=== PATIENT | male | born 1960 | race Caucasian/White ===

== ENCOUNTER 2016-06-10 19:49 | Inpatient (IN) | payer MEDICAID ==
[~2016-06-10] VITALS: Ht 177.8 cm; Wt 86.6 kg
[~2016-06-10 19:49] MED LIST: ADALAT CC90 MG PO; AMBIEN10 MG PO; AMLODIPINE10 M1 PO; APRESOLINE25 MG PO; ASPIRIN81 M1 PO; ATIVAN1 MG PO; BACTRIM DS 800/1 TAB PO; BACTROBAN 2%20 MG/GM NS; CATAPRES0.2 MG PO; CIPRO500 MG PO; CLEOCIN HCL150 MG PO; COLACE100 M1 PO; COREG6.25 MG PO; CYMBALTA20 MG PO; DOCUSATE SODIU PO; ELAVIL25 M1 PO; FOSRENOL500 MG PO; HUMULIN R100 U/M1 SUBQ; HYDROCHLOROTHIAZIDE PO; ISORDIL10 M1 PO; KEFLEX250 MG PO; KEFLEX250 MG/5 M PO; LEVAQUIN250 MG PO; LIORESAL10 MG PO; LIPITOR80 MG PO; LONITEN2.5 MG PO; LOPRESSOR25 MG PO; LOPRESSOR50 MG PO; MICARDIS HCT 251 TAB PO; NEPHRO-VITE VIT1 TAB PO; NEURONTIN300 MG PO; NORCO 325 MG-7.1 TAB PO; NORCO 5/325 MG1 TAB PO; NORVASC10 MG PO; NOVOLIN R100 UNITS/ SUBQ; PEPCID20 MG PO; PHOSLO667 M1 PO; PROCARDIA XL90 MG PO; REGLAN5 MG PO; RENA-VITE RX1 TAB PO; RENAGEL800 MG PO; RENVELA800 MG PO; SILVER SULFADIAZINE TP; TELMISARTAN PO; THORAZINE PO; VITAMIN B COMPL PO; ZOFRAN4 M1 PO; ZOFRAN8 MG PO; [UNRECOGNIZED DRUG - REMARK]; [UNRECOGNIZED DRUG - REMARK]; [UNRECOGNIZED DRUG - REMARK]; [UNRECOGNIZED DRUG - REMARK]; [UNRECOGNIZED DRUG - REMARK]
[2016-06-10 19:58] VITALS: BP 222/118
[2016-06-10] MEDS ORDERED: MORPHINE SULFATE 4 MG/ML SYR IM ONE (20:15)
[2016-06-10] MEDS ORDERED: ONDANSETRON 4 MG ODT PO ONE (20:15)
--- NOTE | 2016-06-10 20:18 | NUR ---
BIB WHEELCHAIR TO ER BED 4
--- NOTE | 2016-06-10 20:18 | NUR ---
56Y M BIB DAUGHTER (JAMIE) AT BEDSIDE C/O STOMACH PAIN AND VOMITNG X 1 DAY. PT HAS ALL TOES ON BOTH LEGS AMPUTATED HER AT [facility]. PT HAS HX OF DM, RENAL DX, HTN, HYPERLIPIDEMIA AND LEFT FOOT ULCER. PT SKIN IS PINK/WARM/DRY; AAOX4 WITH EVEN AND STEADY GAIT; LUNGS CLEAR BL; HR EVEN AND REGULAR; PT DENIES ANY FEVER, CP, SOB, OR COUGH AT THIS TIME; PATIENT STATES PAIN OF 10/10 AT THIS TIME; PATIENT POSITIONED FOR COMFORT; HOB ELEVATED; BEDRAILS UP X2; BED DOWN. ER MD MADE AWARE OF PT STATUS.
--- NOTE | 2016-06-10 20:18 | NUR ---
PT HAS DIALYSIS ON MON, , MONDAY, SHUNT IS ON RIGHT ARM
--- NOTE | 2016-06-10 20:29 | NUR ---
Patient being evaluated by physician DR CHEN at bedside.
[2016-06-10] MEDS ORDERED: cefTRIAXone 1,000 MG in DEXT 5% MINI-BAG PLUS 50 ML IV ONE (22:10)
[2016-06-10] MEDS ORDERED: cefTRIAXone 1,000 MG VIAL ONE (22:32)
[2016-06-10] MEDS ORDERED: SODIUM POLYSTYRENE 15 GM/60 ML UDBTL PO ONE (23:15)
--- NOTE | 2016-06-10 23:15 | NUR ---
LAB CALLED FOR CRITICAL LAB; CR 9.9, TROPONIN 0.117
[2016-06-10] MEDS ORDERED: DOCUSATE SODIUM 100 MG GELCAP PO PRN (23:30)
[2016-06-10] MEDS ORDERED: ACETAMINOPHEN 325 MG TAB PO PRN (23:30)
[2016-06-10] MEDS ORDERED: ONDANSETRON 4 MG/2 ML VIAL IVP PRN (23:30)
--- NOTE | 2016-06-10 23:41 | NUR ---
Patient will be admitted to care of DR PARK . Admited to TELE 115. Will go to room 115. Belongings list completed. Report to SIMONE GALLEGOS .
[2016-06-11] VITALS: BP 190/107
--- NOTE | 2016-06-11 | NUR ---
PATIENT ARRIVED VIA GURNEY FROM ED. PATIENT ABLE TO ASSIST WITH TRANSFER TO BED. PATIENT IS AAO x4 WOLOF SPEAKING. PATIENT IS ON ROOM AIR, NO SOB. PATIENT HAS IV TO LEFT AC 22G PATENT, SALINE LOCKED. PATIENT C/O ABDOMINAL PAIN, TENDER TO THE TOUCH, BOWEL SOUNDS ACTIVE. AND C/O PAIN TO THE LEFT LEG. WILL MEDICATE PER MD ORDER. RIGHT ARM GRAFT FOR HD (M, T, TH, SAT) PATIENT SKIN CHECK, ALL TOES AMPUTATED TO BOTH FEET. DIABETIC FOOT ULCER TO LEFT FOOT. MINIMAL SEROUS DRAINAGE NOTED. CLEANED AND KERLIX APPLIED. ORIENTED PATIENT TO ROOM AND CALL LIGHT, DISCUSSED PLAN OF CARE WITH PATIENT, PATIENT VERBALIZED UNDERSTANDING. SAFETY MEASURES CHECKED, PATIENT FALL RISK, SIGNS POSTED, WRIST BAND APPLIED/ PATIENT ON TELE MONITOR. CALL LIGHT WITHIN REACH. WILL CONTINUE TO MONITOR. VITAL SIGNS BP 190/107 HR 82 O2 SAT 96% TEMP 98.6 RESP 18
[2016-06-11] MEDS: MORPHINE SULFATE 2 MG/ML SYR IVP PRN ×3 (00:17→21:24)
[2016-06-11] MEDS ORDERED: GAUZE TP PRN (00:20)
[2016-06-11] MEDS ORDERED: NACL 0.9% IRR 250 ML BOTTLE IR PRN (00:20)
--- NOTE | 2016-06-11 00:20 | NUR ---
ADMINISTERED MORPHINE PER MD ORDER, WILL CONTINUE TO MONITOR PATIENT
--- NOTE | 2016-06-11 00:39 | NUR ---
RECEIVED CALL FOR CRITICAL LAB OF PHOS 10.8, REPORTED TO MD CLAYTON. NO ORDERS GIVEN. PATIENT'S BP ELEVATED 190/107 HR 82, REQUESTED PRN BP MEDICATION, ORDERS RECEIVED FOR LOPRESSOR 5MG PRN. WILL FOLLOW UP.
[2016-06-11] MEDS ORDERED: METOPROLOL 25 MG TAB PO PRN ×2 (00:45→01:05)
[2016-06-11] MEDS: NACL 0.9% IRR 250 ML BOTTLE IR SCH ×2 (01:27→13:00)
[2016-06-11] MEDS: GAUZE TP SCH ×2 (01:27→13:00)
[2016-06-11] MEDS ORDERED: hydrALAZINE 25 MG TAB PO SCH (02:00)
--- NOTE | 2016-06-11 02:00 | NUR ---
PHARMACY CALLED REGARDING DOSAGE OF LOPRESSOR 5 MG PO. STATED ALMOST IMPOSSIBLE TO DOSE 5MG OUT OF 25 MG TABLET, CALLED MD CLAYTON TO VERIFY DOSE, STATED THE DOSAGE WAS SUPPOSED TO BE IVP. MD GAVE ORDERS TO CONTINUE OUT WHAT PATIENT WAS TAKING AT HOME FOR BLOOD PRESSURE. PER MED REC, PATIENT WAS ON 25MG HYDRALAZINE, MD GAVE ORDERS TO GIVE ONE TIME DOSE OF HYDRALAZINE.AND TO FOLLOW UP WITH PATIENT WITH WHAT MEDICATIONS PATIENT TAKES AT HOME. WILL FOLLOW UP WITH ORDERS.
--- NOTE | 2016-06-11 02:40 | NUR ---
ADMINISTERED ONE TIME DOSE HYDRALAZINE PER MD ORDER, PATIENT TOLERATED WELL. BP 195/108. HR 88, PATIENT HAS BEEN UP TO RESTROOM MULTIPLE TIMES D/T DOSE OF KAYEXALATE. PATIENT STATES PAIN IS OKAY RIGHT NOW, PATIENT ASKED TO TURN OFF LIGHTS. PATIENT NOW SLEEPING, CALL LIGHT WITHIN REACH. WILL CONTINUE TO MONITOR.
[2016-06-11 04:00] VITALS: BP 184/102
--- NOTE | 2016-06-11 04:20 | NUR ---
PATIENT RESTING IN BED, NO SIGN OF DISTRESS, PATIENT'S BP STILL ELEVATED TO 184/102 HR 88. ASYMPTOMATIC, PATIENT DENIES PAIN AT THIS TIME. CALL LIGHT WITHIN REACH. WILL CONTINUE TO MONITOR.
--- NOTE | 2016-06-11 05:21 | NUR ---
PATIENT C/O ITCHING ON LEGS ARMS AND BACK , PAGED MD CLAYTON, RECEIVED ORDERS FOR BENADRYL 25MG PO Q6 PRN. WILL FOLLOW UP WITH ORDERS.
--- NOTE | 2016-06-11 06:00 | NUR ---
ADMINISTERED BENADRYL TO PATIENT, TOLERATED WELL, NO SIGN OF DISTRESS, CALL LIGHT WITHIN REACH. WILL CONTINUE TO MONITOR
--- NOTE | 2016-06-11 07:20 | NUR ---
ENDORSED PATIENT TO DAY SHIFT RN AT BEDSIDE, PATIENT IN STABLE CONDITION.
--- NOTE | 2016-06-11 07:25 | NUR ---
RECEIVED PATIENT REPORT. PATIENT AWAKE, ALERT, ORIENTED AND AMBULATORY. PATIENT ON ROOM AIR. NO SOB NOTED. CLEAN, DRY AND INTACT WOUND DRESSING NOTED ON THE LEFT FOOT. IV LINE NOTED TO THE LEFT FOREARM SALINE LOCKED. PATIENT C/O OF STOMACH PAIN WILL MEDICATE. PATIENT ON TELE MONITORING. BED LOWERED WITH CALL LIGHT WITHIN REACH. WILL CONTINUE TO MONITOR
[2016-06-11 08:00] VITALS: BP 202/91
[2016-06-11] MEDS: hydrALAZINE 25 MG TAB PO SCH ×3 (08:12→17:16)
[2016-06-11] MEDS: amLODIPine 5 MG TAB PO SCH (08:12)
[2016-06-11] MEDS: CALCIUM ACETATE 667 MG TAB PO SCH ×2 (08:23→17:16)
[2016-06-11] MEDS: ISOSORBIDE DINITRATE 10 MG TAB PO SCH (08:23)
--- NOTE | 2016-06-11 08:26 | NUR ---
CALLED [facility] AND SPOKE WITH CARLA BERNAL. INFORMED HER ABOUT THE DIALYSIS ORDER FOR THE PATIENT
--- NOTE | 2016-06-11 08:27 | NUR ---
OBTAINED CONSENT FOR HEMODIALYSIS FROM THE PATIENT. CONSENT FILED IN THE CHART
[2016-06-11] MEDS ORDERED: PANTOPRAZOLE 40 MG TABEC PO SCH (09:00)
[2016-06-11] MEDS ORDERED: METOPROLOL 25 MG TAB PO SCH ×2 (09:00)
--- NOTE | 2016-06-11 09:11 | NUR ---
BLOOD PRESSURE RECHECKED 160/105 HR 83. NO S/S OF DISTRESS NOTED
[2016-06-11] MEDS ORDERED: hePARIN / DEXT 5% PREMIX 250 ML IV SCH (10:05)
[2016-06-11] MEDS ORDERED: HEPARIN PER PHARMACY MC PRN (10:05)
[2016-06-11] MEDS ORDERED: DEXTROSE 50% 50 ML SYR IVP PRN (10:45)
[2016-06-11] MEDS ORDERED: ATORVASTATIN 80 MG TAB PO SCH (11:00)
[2016-06-11] MEDS ORDERED: ASPIRIN 81 MG TAB.CHEW PO SCH (11:00)
[2016-06-11] MEDS ORDERED: METOCLOPRAMIDE 10 MG/2 ML INJ VIAL IVP PRN (11:50)
[2016-06-11] MEDS: BLOOD GLUCOSE MONITORING 1 DEV DEV FS SCH ×3 (11:53→21:19)
[2016-06-11 12:00] VITALS: BP 141/87
[2016-06-11] MEDS: PIPER/TAZO 2.25GM/D5W PREMIX 50 ML IV SCH ×3 (12:00→23:49)
[2016-06-11] MEDS ORDERED: ONDANSETRON 4 MG/2 ML VIAL IVP PRN (12:05)
--- NOTE | 2016-06-11 12:11 | NUR ---
PATIENT HAS BEEN SCREENED AND CATEGORIZED HIGH NUTRITION RISK. PATIENT WILL BE SEEN WITHIN 1-2 DAYS OF ADMISSION. 06/11/16 - 06/12/16 MAINE ROBERTSON; MICHEAL, RD
[2016-06-11] MEDS: INSULIN ASPART SLIDING SCALE 100 UNITS/ML VIAL SUBQ PRN ×2 (12:55→21:20)
[2016-06-11] MEDS: chlorproMAZINE 25 MG TAB PO SCH ×2 (12:57→17:16)
[2016-06-11] MEDS: SEVELAMER 800 MG TAB PO SCH ×2 (12:57→17:16)
[2016-06-11] MEDS: hePARIN / DEXT 5% PREMIX 250 ML IV SCH ×2 (13:05→20:50)
--- NOTE | 2016-06-11 13:10 | NUR ---
HEMODIALYSIS AND HEPARIN DRIP INITIATED
[2016-06-11 16:00] VITALS: BP 147/80
--- NOTE | 2016-06-11 16:20 | NUR ---
HEMODIALYSIS DONE. PATIENT IN STABLE CONDITION
--- NOTE | 2016-06-11 16:20 | NUR ---
2L OUT FROM HEMODIALYSIS
--- NOTE | 2016-06-11 16:48 | NUR ---
06/11/16 RD INITIAL ASSESSMENT COMPLETED PLEASE REFER TO NUTRITION ASSESSMENT UNDER CARE ACTIVITY FOR ESTIMATED NUTRITIONAL NEEDS. RD RECOMMENDATIONS: 1- RECOMMEND CONTINUE CARDIAC, RENAL DIET; SUFFICIENT TO MEET 100% OF ESTIMATED DAILY NUTRITIONAL NEEDS. 2- F/U 2-3 DAYS; HIGH RISK. MAINE ROBERTSON; MICHEAL, RD
[2016-06-11] MEDS: LANTHANUM CARBONATE 500 MG TAB PO SCH (17:25)
--- NOTE | 2016-06-11 17:58 | NUR ---
PATIENT LEFT THE UNIT FOR CT OF THE HEAD
--- NOTE | 2016-06-11 18:52 | NUR ---
SPOKE WITH DR CLAYTON AND INFORMED HER THAT AN ECHO WAS DONE ON 03/26/16. ORDERS THE ECHO TO STILL BE DONE
--- NOTE | 2016-06-11 18:52 | NUR ---
PATIENT SEEN BY DR ASHBY
--- NOTE | 2016-06-11 19:30 | NUR ---
PATIENT REPORT GIVEN AT BEDSIDE. ENDORSED PATIENT IN STABLE CONDITION
--- NOTE | 2016-06-11 19:40 | NUR ---
RECEIVED REPORT FROM DAY NURSEPEPE. PATIENT RESTING IN BED, WATCHING TELEVISION, FAMILY MEMBER AT BEDSIDE. NO RESPIRATORY DISTRESS, SOB, OR DISCOMFORT. INITIAL ASSESSMENT AND BODY CHECK DONE. PATIENT IS AOX4, ALL TOES TO RIGHT FOOT AMPUTATED, WOUND NOTED TO LEFT FOOT, COVERED WITH DRESSING; DRY AND INTACT. IV ACCESS TO LEFT AC 22G AND LEFT HAND 24G, BOTH PORTS PATENT. DISCUSSED PLAN OF CARE, MEDICATION REGIMENT, AND PAIN MANAGEMENT WITH PATIENT. PATIENT VERBALIZED UNDERSTANDING. PLACED PATIENT ON SAFETY PRECAUTIONS. CALL LIGHT LEFT WITHIN REACH, WILL CONTINUE TO MONITOR.
[2016-06-11 20:00] VITALS: BP 160/96
--- NOTE | 2016-06-11 20:08 | NUR ---
DR. CLAYTON PAGED AT THIS TIME, ON-CALL FOR DR. PARK.
--- NOTE | 2016-06-11 20:11 | NUR ---
SPOKE WITH DR. CLAYTON OVER THE PHONE, UPDATED MD OF HEAD CT RESULTS. MD STATED TO RESTART HEPARIN DRIP.
[2016-06-11] MEDS: SACCHAROMYCES 250 MG CAP PO SCH (20:53)
[2016-06-11] MEDS: METOPROLOL 25 MG TAB PO SCH (20:53)
--- NOTE | 2016-06-11 22:04 | NUR ---
PATIENT IN BED, SLEEPING. NO RESPIRATORY DISTRESS, SOB, OR DISCOMFORT. CALL LIGHT LEFT WITHIN REACH, WILL CONTINUE TO MONITOR.
[2016-06-12] VITALS: BP 140/87
--- NOTE | 2016-06-12 00:42 | NUR ---
PATIENT ASLEEP. NO RESPIRATORY DISTRESS, SOB, OR DISCOMFORT. CALL LIGHT LEFT WITHIN REACH, WILL CONTINUE TO MONITOR.
[2016-06-12] MEDS: NACL 0.9% IRR 250 ML BOTTLE IR SCH ×2 (01:00→13:00)
[2016-06-12] MEDS: GAUZE TP SCH ×2 (01:00→13:00)
--- NOTE | 2016-06-12 03:19 | NUR ---
PATIENT SLEEPING. NO RESPIRATORY DISTRESS, SOB, OR DISCOMFORT. CALL LIGHT LEFT WITHIN REACH, WILL CONTINUE TO MONITOR.
[2016-06-12 04:00] VITALS: BP 150/84
[2016-06-12] MEDS: hePARIN / DEXT 5% PREMIX 250 ML IV SCH ×2 (04:41→16:14)
[2016-06-12] MEDS: PIPER/TAZO 2.25GM/D5W PREMIX 50 ML IV SCH ×3 (05:47→18:35)
[2016-06-12] MEDS: PANTOPRAZOLE 40 MG TABEC PO SCH (05:47)
--- NOTE | 2016-06-12 06:03 | NUR ---
PATIENT IN BED, ASLEEP. NO RESPIRATORY DISTRESS, SOB, OR DISCOMFORT. CALL LIGHT LEFT WITHIN REACH, WILL CONTINUE TO MONITOR.
[2016-06-12] MEDS: BLOOD GLUCOSE MONITORING 1 DEV DEV FS SCH ×4 (06:16→20:48)
[2016-06-12] MEDS: INSULIN ASPART SLIDING SCALE 100 UNITS/ML VIAL SUBQ PRN ×3 (06:17→21:07)
--- NOTE | 2016-06-12 07:10 | NUR ---
REPORT GIVEN TO DAY NURSEPEPE. PATIENT RESTING IN BED, STABLE. NO RESPIRATORY DISTRESS, SOB, OR DISCOMFORT. ALL NEEDS ATTENDED TO DURING SHIFT, CALL LIGHT LEFT WITHIN REACH.
--- NOTE | 2016-06-12 07:15 | NUR ---
RECEIVED PATIENT REPORT. PATIENT ASLEEP IN BED BUT EASILY AROUSABLE. NO S/S OF DISTRESS NOTED. PATIENT ON ROOM AIR. HEPARIN DRIP INFUSING AT 11.3ML/HR. WOUND TO THE LEFT LEG WRAPPED WITH CLEAN, DRY AND INTACT DRESSING. PATIENT ON TELE MONITORING. BED LOWERED WITH CALL LIGHT WITHIN REACH. WILL CONTINUE TO MONITOR
[2016-06-12 08:00] VITALS: BP 137/65
[2016-06-12] MEDS: CALCIUM ACETATE 667 MG TAB PO SCH ×2 (08:49→18:35)
[2016-06-12] MEDS: SACCHAROMYCES 250 MG CAP PO SCH ×2 (08:49→20:31)
[2016-06-12] MEDS: chlorproMAZINE 25 MG TAB PO SCH ×3 (08:49→18:35)
[2016-06-12] MEDS: SEVELAMER 800 MG TAB PO SCH ×3 (08:49→18:35)
[2016-06-12] MEDS: ATORVASTATIN 80 MG TAB PO SCH (08:49)
[2016-06-12] MEDS: amLODIPine 5 MG TAB PO SCH (08:50)
[2016-06-12] MEDS: ISOSORBIDE DINITRATE 10 MG TAB PO SCH (08:50)
[2016-06-12] MEDS: METOPROLOL 25 MG TAB PO SCH ×2 (08:51→20:32)
[2016-06-12] MEDS: ASPIRIN 81 MG TAB.CHEW PO SCH (08:51)
[2016-06-12] MEDS: hydrALAZINE 25 MG TAB PO SCH ×3 (08:51→18:34)
[2016-06-12] MEDS: LANTHANUM CARBONATE 500 MG TAB PO SCH ×2 (08:52→18:34)
--- NOTE | 2016-06-12 09:00 | NUR ---
ADMINISTERED DUE MEDS. PATIENT TOLERATED WELL. NO S/S OF DISTRESS NOTED. HEP DRIP STILL ONGOING
--- NOTE | 2016-06-12 10:23 | NUR ---
PATIENT ASLEEP IN BED. NO S/S OF DISTRESS NOTED
[2016-06-12 12:00] VITALS: BP 130/76
--- NOTE | 2016-06-12 12:29 | NUR ---
PTT 52.2. NO CHANGE IN HEPARIN DRIP
[2016-06-12] MEDS: HYDROcodone/APAP 5/325 MG 1 TAB TAB PO PRN (12:46)
--- NOTE | 2016-06-12 15:45 | NUR ---
WOUND DRESSING CHANGE DONE BY DR ASHBY
[2016-06-12 16:00] VITALS: BP 133/72
[2016-06-12] MEDS ORDERED: THERAHONEY GEL 42.5 GM TP SCH (16:00)
--- NOTE | 2016-06-12 16:02 | NUR ---
PAGED DR MARTIN FOR DIALYSIS ORDER. WAITING FOR CALL BACK
--- NOTE | 2016-06-12 17:20 | NUR ---
MADE DR TSAI AWARE THAT NO HEMODIALYSIS HAS BEEN PLACED YET AND DR MARTIN WAS BEEN PAGED ALREADY
--- NOTE | 2016-06-12 17:24 | NUR ---
PER DR VILA, AGUSTO HEPARIN DRIP AND START PATIENT ON 5000 UNITS OF HEPARIN SUBQ BID. DR TSAI INFORMED
--- NOTE | 2016-06-12 19:33 | NUR ---
PATIENT REPORT GIVEN AT BEDSIDE. PATIENT ENDORSED IN STABLE CONDITION
--- NOTE | 2016-06-12 19:45 | NUR ---
RECEIVED PT IN STABLE CONDITION FROM AM NURSE. AWAKE,ALERT AND ORIENTED X4. FAMILY MEMBERS JUST CAME . ON TELE MONITOR. NO ACUTE DISTRESS NOTED. WITH IV ACCESS ON THE LT AC#22. CLEAR AND PATENT. PT HAS DRESSING ON THE LT FOOT. DRY AND INTACT. HAS PREVIOUS AMPUTATION ON RT TOES. ABLE TO AMBULATE TO BATHROOM . BUT INSTRUCTED TO CALL FOR ASSISTANCE. CALL LIGHT PLACED WITHIN EASY REACH. ON CONTACT ISOLATION FOR HS: MRSA . WILL CONTINUE TO MONITOR.
[2016-06-12 20:00] VITALS: BP 146/78
--- NOTE | 2016-06-12 23:34 | NUR ---
PAGED DR. MARTIN TO CLARIFY IF PT NEED DIALYSIS TOMORROW.
[2016-06-13 00:46] VITALS: BP 146/78
[2016-06-13] MEDS: PIPER/TAZO 2.25GM/D5W PREMIX 50 ML IV SCH ×5 (00:46→17:26)
[2016-06-13] MEDS: HYDROcodone/APAP 5/325 MG 1 TAB TAB PO PRN ×2 (00:48→21:32)
[2016-06-13] MEDS: GAUZE TP SCH ×2 (01:00→13:07)
[2016-06-13] MEDS: NACL 0.9% IRR 250 ML BOTTLE IR SCH ×2 (01:00→13:08)
--- NOTE | 2016-06-13 02:59 | NUR ---
C/O ITCHING. BENADRYL PO GIVEN ORDERED.
[2016-06-13 04:30] VITALS: BP 133/78
--- NOTE | 2016-06-13 05:00 | NUR ---
ABLE TO SLEEP WELL DURING THE NIGHT. NO DISTRESS NOTED.
--- NOTE | 2016-06-13 05:56 | NUR ---
DR. MARTIN JUST CALLED AND ORDERED HD TODAY . CALLED [facility] AND TALKED TO CARLA. MADE AWARE THAT THEY HAVE TO CALL DR. MARTIN FOR ORDER.
[2016-06-13] MEDS: PANTOPRAZOLE 40 MG TABEC PO SCH (06:01)
[2016-06-13] MEDS: BLOOD GLUCOSE MONITORING 1 DEV DEV FS SCH ×4 (06:12→21:27)
--- NOTE | 2016-06-13 06:50 | NUR ---
LT AC IV LEAKING. AND LT HAND HL INFILTRATED. BOTH DISCONTINUED. STARTED ANEW IV ACCES LT FA #[id number]. CLEAR AND PATENT.
--- NOTE | 2016-06-13 07:30 | NUR ---
ENDORSED PT IN STABLE CONDITION TO AM NURSE.
--- NOTE | 2016-06-13 07:31 | NUR ---
RECEIVED PT FROM PM NURSE. PT SEEN AT BEDSIDE. NO S/S DISTRESS OR SOB AT THIS TIME. ON ROOM AIR. PT IS AAOX4, BULGARIAN SPEAKING. LEFT FA 22G IV NOTED. RIGHT UPPER ARM AV SHUNT NOTED. NO S/S COMPLICATIONS AT THIS TIME. LEFT FOOT COVERED WITH DRESSING. RIGHT FOOT TOE AMPUTATIONS NOTED. PT AMBULATORY. SAFETY MEASURES CHECKED, CALL LIGHT LEFT AT BEDSIDE. WILL CONTINUE TO MONITOR.
--- NOTE | 2016-06-13 07:40 | NUR ---
RECEIVED CALL FROM LAB FOR CRITICAL CREATININE 10.5 AND PHOSPHORUS 11.7 AT 06/13/[address] HANCOCK OF CRITICAL LAB VALUES AND THAT PT WILL HAVE HD TODAY. MD AWARE. NO CHANGE IN ORDERS AT THIS TIME. WILL CONTINUE TO MONITOR.
[2016-06-13 08:00] VITALS: BP 160/89
--- NOTE | 2016-06-13 08:00 | NUR ---
VITAL SIGNS STABLE AT THIS TIME. PT EATING BREAKFAST TRAY. WILL CONTINUE TO MONITOR.
[2016-06-13] MEDS: LANTHANUM CARBONATE 500 MG TAB PO SCH ×2 (08:48→16:16)
[2016-06-13] MEDS: hydrALAZINE 25 MG TAB PO SCH ×3 (08:49→16:17)
[2016-06-13] MEDS: CALCIUM ACETATE 667 MG TAB PO SCH ×2 (08:49→16:17)
[2016-06-13] MEDS: ISOSORBIDE DINITRATE 10 MG TAB PO SCH (08:49)
[2016-06-13] MEDS: ATORVASTATIN 80 MG TAB PO SCH (08:49)
[2016-06-13] MEDS: SEVELAMER 800 MG TAB PO SCH ×3 (08:49→16:16)
[2016-06-13] MEDS: SACCHAROMYCES 250 MG CAP PO SCH ×2 (08:50→21:30)
[2016-06-13] MEDS: ASPIRIN 81 MG TAB.CHEW PO SCH (08:50)
[2016-06-13] MEDS: chlorproMAZINE 25 MG TAB PO SCH ×3 (08:50→16:16)
--- NOTE | 2016-06-13 08:50 | NUR ---
ADMINISTERED ROUTINE MEDICATIONS WITH EDUCATION. PT VERBALIZED UNDERSTANDING. PT TOLERATED WELL. WILL CONTINUE TO MONITOR.
[2016-06-13] MEDS: METOPROLOL 25 MG TAB PO SCH ×2 (08:51→21:31)
[2016-06-13] MEDS: amLODIPine 5 MG TAB PO SCH (08:52)
[2016-06-13] MEDS: THERAHONEY GEL 42.5 GM TP SCH (08:53)
--- NOTE | 2016-06-13 10:15 | NUR ---
WOUND CARE EVALUATION NOTES: REASON FOR EVALUATION: LEFT FOOT INFECTION COMPLETE SKIN ASSESSMENT DONE ON THIS 56 Y/O MALE PATIENT FROM HOME TO [facility], WITH INITIAL DIAGNOSIS OF DIABETIC FOOT ULCER, ELEVATED TROPONIN AND HYPERKALEMIA. PAST MEDICAL HISTORY INCLUDE DM WITH BILATERAL MID FOOT AMPUTATION, HYPERTENSION, ESRD AND HEPATITIS. ALL ABOVE INFORMATION WAS OBTAINED FROM THE ADMISSION H&P. LABS ARE WBC 7.0, H/H 9.7/30.6, GLUCOSE 120, ALBUMIN 3.8, PT/INR 11.5/1.2 AND PTT 24.8. CURRENT MEDS INCLUDE HEPARIN, ASPIRIN, ZOSYN, INSULIN, NORCO AND MORPHINE. PATIENT IS AWAKE, ALERT AND ORIENTED TO PERSON, PLACE AND TIME. SKIN WARM TO TOUCH WNL, BILATERAL FEET TRANSMETATARSAL AMPUTATION WITH SCARRING, NO EDEMA, PLANTAR AREA OF AMPUTATION WITH HYPERKERATOSIS, NO HAIR GROWTH, MULTIPLE SCARRING OF BLE AND UNABLE TO PALPATE BILATERAL PEDAL PULSES. ABLE TO AMBULATE TO THE RESTROOM CLAIMED. ABLE TO TURN SELF WITHOUT ASSISTANCE. ABLE TO MAKE HIS NEEDS KNOWN. INITIAL PLAN OF CARE AND PRESSURE PREVENTIVE MEASURES DISCUSSED, ABLE TO VERBALIZE UNDERSTANDING. INTEGUMENTARY: LEFT FOOT - DIABETIC FOOT ULCER - WITH HISTORY OF TRANSMETATARSAL AMPUTATION - PW WITH HYPERKERATOSIS RECOMMENDATIONS: -CLEANSE LEFT FOOT WITH NS AND GAUZE, PAT DRY, APPLY THERAHONEY GEL, COVER WITH ADAPTIC, GAUZE, WRAP WITH PANCHO AND ADAPTIC DAILY AND PRN WITH SOILING/DISPLACEMENT -ENCOURAGE PATIENT TO TURN AND REPOSITION SELF Q2H -ASSESS AND MONITOR SKIN CONDITION DURING POSITION CHANGE, PLEASE PAY PARTICULAR ATTENTION TO SACRALCOCCYX, ELBOWS AND HEELS -OFFLOAD BILATERAL HEELS BY PLACING PILLOWS UNDER CALVES AT ALL TIMES, UNLESS OTHERWISE CONTRAINDICATED -PODIATRY CONSULT IN PLACE -KEEP SKIN CLEAN AND DRY AT ALL TIMES. RECOMMENDATIONS DISCUSSED WITH PRIMARY RN AND RESIDENT PHYSICIAN, DR. PHAM. WILL FOLLOW UP PATIENT Q 7 DAYS AND PRN. PLEASE CONTACT [facility] FOR ANY CONCERNS, QUESTIONS AND CHANGES IN WOUND CONDITION.
--- NOTE | 2016-06-13 11:45 | NUR ---
MARKETING SUPPORT SPECIALIST AT BEDSIDE.
[2016-06-13 12:00] VITALS: BP 162/85
--- NOTE | 2016-06-13 12:00 | NUR ---
PER PHARMACY ORDER ENTRY TECHNICIANLOVE, HOLD ANTIBIOTIC, BP MEDS, AND INSULIN UNTIL HD IS DONE.
--- NOTE | 2016-06-13 14:02 | NUR ---
PT C/O ITCHING. BENADRYL ADMINISTERED. PT TOLERATED WELL. WILL CONTINUE TO MONITOR.
--- NOTE | 2016-06-13 14:15 | NUR ---
PT ASKING IF HE IS GOING HOME TODAY. NOTIFIED PATIENT THAT THERE IS NO DISCHARGE ORDER BY THE DOCTOR YET. PT VERBALIZED UNDERSTANDING.
[2016-06-13 16:00] VITALS: BP 168/74
--- NOTE | 2016-06-13 17:00 | NUR ---
NOTIFIED DR. PHAM THAT PT SBP IS RUNNING 180S ALL DAY TODAY. MD AWARE. WILL FOLLOW UP WITH ORDERS.
[2016-06-13] MEDS: INSULIN ASPART SLIDING SCALE 100 UNITS/ML VIAL SUBQ PRN ×2 (17:26→21:28)
--- NOTE | 2016-06-13 17:26 | NUR ---
ROUTINE MEDICATION GIVEN WITH EDUCATION. PT VERBALIZED UNDERSTANDING. WILL CONTINUE TO MONITOR.
[2016-06-13] MEDS ORDERED: ISOSORBIDE DINITRATE 20 MG TAB PO SCH (18:00)
--- NOTE | 2016-06-13 18:23 | NUR ---
ISOSORBIDE GIVEN WITH EDUCATION. PT VERBALIZED UNDERSTANDING. WILL CONTINUE TO MONITOR.
--- NOTE | 2016-06-13 19:18 | NUR ---
PT SEEN AT BEDSIDE. REPORT GIVEN TO EL CANTU.
--- NOTE | 2016-06-13 19:25 | NUR ---
RECEIVED REPORT FROM DAY NURSELASHAWN. PATIENT RESTING IN BED, WATCHING TELEVISION. NO RESPIRATORY DISTRESS, SOB, OR DISCOMFORT. INITIAL ASSESSMENT AND BODY CHECK DONE. PATIENT IS AOX4, IV ACCESS LEFT FOREARM 22G, PATENT. PATIENT HAS DIALYSIS ACCESS TO RIGHT UPPER ARM. ULCER NOTED TO LEFT FOOT, COVERED WITH DRESSING; DRY AND INTACT. RIGHT TOES AMPUTATION NOTED. DISCUSSED PLAN OF CARE, MEDICATION REGIMENT, AND PAIN MANAGEMENT WITH PATIENT. PATIENT VERBALIZED UNDERSTANDING. PLACED PATIENT ON SAFETY PRECAUTIONS. CALL LIGHT LEFT WITHIN REACH, WILL CONTINUE TO MONITOR.
[2016-06-13 20:00] VITALS: BP 147/83
--- NOTE | 2016-06-13 20:00 | NUR ---
SPOKE WITH DR. PHAM, UPDATE MD ON PATIENT STATUS. MD REQUESTING PATIENT TO POSSIBLY HAVE DIALYSIS EARLY 0500 TOMORROW AM IF POSSIBLE.
--- NOTE | 2016-06-13 20:05 | NUR ---
SPOKE WITH NILSON LOCKWOOD. UPDATED PER ATTENDING MD OF REQUEST FOR EARLY DIALYSIS.
--- NOTE | 2016-06-13 20:09 | NUR ---
SPOKE WITH DR. MARTIN OVER THE PHONE. UPDATED MD OF ATTENDING MD REQUEST FOR PATIENT AM DIALYSIS.
--- NOTE | 2016-06-13 22:02 | NUR ---
PATIENT IN BED, WATCHING TELEVISION. PATIENT COMPLAINING PREVIOUS MEDICATION ADMINISTRATION GAVE LITTLE TO NO RELIEF. WILL FOLLOW MD ORDERS AND F/U. NO RESPIRATORY DISTRESS, SOB, OR DISCOMFORT. CALL LIGHT LEFT WITHIN REACH, WILL CONTINUE TO MONITOR.
[2016-06-13] MEDS: MORPHINE SULFATE 2 MG/ML SYR IVP PRN (23:30)
[2016-06-14] VITALS: BP 116/65
[2016-06-14] MEDS: PIPER/TAZO 2.25GM/D5W PREMIX 50 ML IV SCH ×3 (00:16→12:49)
--- NOTE | 2016-06-14 00:52 | NUR ---
PATIENT IN BED, SLEEPING. NO RESPIRATORY DISTRESS, SOB, OR DISCOMFORT. CALL LIGHT LEFT WITHIN REACH, WILL CONTINUE TO MONITOR.
[2016-06-14] MEDS: GAUZE TP SCH ×2 (01:00→13:00)
[2016-06-14] MEDS: NACL 0.9% IRR 250 ML BOTTLE IR SCH ×2 (01:00→13:00)
--- NOTE | 2016-06-14 03:15 | NUR ---
PATIENT ASLEEP. NO RESPIRATORY DISTRESS, SOB, OR DISCOMFORT. CALL LIGHT LEFT WITHIN REACH, WILL CONTINUE TO MONITOR.
[2016-06-14 04:00] VITALS: BP 116/70
--- NOTE | 2016-06-14 06:10 | NUR ---
PATIENT SLEEPING. NO RESPIRATORY DISTRESS, SOB, OR DISCOMFORT. CALL LIGHT LEFT WITHIN REACH, WILL CONTINUE TO MONITOR.
[2016-06-14] MEDS: PANTOPRAZOLE 40 MG TABEC PO SCH (06:28)
[2016-06-14] MEDS: BLOOD GLUCOSE MONITORING 1 DEV DEV FS SCH ×3 (06:29→17:15)
--- NOTE | 2016-06-14 07:10 | NUR ---
REPORT GIVEN TO DAY NURSEVAISHALI. PATIENT RESTING IN BED, STABLE. NO RESPIRATORY DISTRESS, SOB, OR DISCOMFORT. ALL NEEDS ATTENDED TO DURING SHIFT, CALL LIGHT LEFT WITHIN REACH.
--- NOTE | 2016-06-14 07:11 | NUR ---
RECEIVED REPORT FROM NIGHT NURSE MIGUELINA GALLEGOS, PATIENT APPEARED TO BE ASLEEP, EASILY AWAKE TO NAME CALLED. AAOX4 KINYARWANDA SPEAKING. NO SIGN OF DISTRESS NOTED. NO SOB OR SIGN OF DISTRESS NOTED AT THIS TIME. INITIAL ASSESSMENT DONE. PATIENT STATED HAVING TOLERABLE BACK PAIN AND WILL REQUEST PAIN MEDICATION WHEN NEEDED. VSS WITH NO FEVER. PATIENT HAS IV 22G TO LEFT FOREARM INTACT AND FLUSHED WELL. PATIENT HAS LEFT WOUND WITH DRY AND INTACT DRESSING TO LEFT FOOT, ALL RIGHT FOOT TOES AMBULATED NOTED. PAIN MANAGEMENT AND MEDICATION REGIMENTS DISCUSSED, PATIENT VERBALIZED UNDERSTANDING. CALL LIGHT WITHIN REACH. WILL CONTINUE TO MONITOR.
[2016-06-14 08:00] VITALS: BP 148/77
[2016-06-14] MEDS ORDERED: CALCIUM ACETATE 667 MG TAB PO SCH (08:00)
[2016-06-14] MEDS: HYDROcodone/APAP 5/325 MG 1 TAB TAB PO PRN (08:29)
[2016-06-14] MEDS: ISOSORBIDE DINITRATE 20 MG TAB PO SCH ×3 (08:29→17:23)
[2016-06-14] MEDS: SEVELAMER 800 MG TAB PO SCH ×3 (08:29→17:23)
[2016-06-14] MEDS: LANTHANUM CARBONATE 500 MG TAB PO SCH ×2 (08:29→17:23)
[2016-06-14] MEDS: METOPROLOL 25 MG TAB PO SCH (08:29)
[2016-06-14] MEDS: hydrALAZINE 25 MG TAB PO SCH ×3 (08:30→17:22)
[2016-06-14] MEDS: amLODIPine 5 MG TAB PO SCH (08:30)
[2016-06-14] MEDS: ASPIRIN 81 MG TAB.CHEW PO SCH (08:30)
[2016-06-14] MEDS: ATORVASTATIN 80 MG TAB PO SCH (08:30)
[2016-06-14] MEDS: SACCHAROMYCES 250 MG CAP PO SCH (08:30)
[2016-06-14] MEDS: chlorproMAZINE 25 MG TAB PO SCH ×3 (08:30→17:22)
--- NOTE | 2016-06-14 08:30 | NUR ---
MORNING DUE MEDICATIONS GIVEN WITH NORCO FOR BACK PRESSURE PAIN 10/01. PATIENT TOLERATED WELL. NO SIGN OF DISTRESS NOTED AT THIS TIME. CALL LIGHT WITHIN REACH. WILL CONTINUE TO MONITOR.
[2016-06-14] MEDS: CALCIUM ACETATE 667 MG TAB PO SCH ×2 (08:47→17:22)
[2016-06-14] MEDS: THERAHONEY GEL 42.5 GM TP SCH (09:00)
[2016-06-14] MEDS ORDERED: ISOSORBIDE DINITRATE 10 MG TAB PO SCH (09:00)
--- NOTE | 2016-06-14 11:50 | NUR ---
HD STARTED. PATIENT APPEARED TO BE CALM. NO SIGN OF DISTRESS NOTED AT THIS TIME. NO COMPLAINING OF DISCOMFORT. ALL NEEDS ARE MET. CALL LIGHT WITHIN REACH. WILL CONTINUE TO MONITOR.
[2016-06-14 12:00] VITALS: BP 138/68
--- NOTE | 2016-06-14 12:31 | NUR ---
06/14/16 RD FOLLOW UP COMPLETED PLEASE REFER TO NUTRITION PROGRESS NOTE UNDER CARE ACTIVITY FOR ESTIMATED NUTRITION NEEDS. RD RECOMMENDATIONS: 1. RECOMMEND DIET CHANGE TO CCHO 60 GM, RENAL PT WITH ELEVATED GLUCOSE LEVELS, PMH DM 2. ENCOURAGE INCREASED PO INTAKES 3. RD PROVIDED PT WITH DM AND RENAL DIET EDUCATIONAL HANDOUTS 3. RD WILL F/U 3-5 DAYS; MODERATE RISK. KENJI HOUSE RD
[2016-06-14] MEDS: MORPHINE SULFATE 2 MG/ML SYR IVP PRN (12:50)
--- NOTE | 2016-06-14 13:18 | NUR ---
DRESSING STILL CLEAN DRY AND INTACT WITH NO DRAINAGE NOTED. PATIENT REMAIN CALM AND RESTING WELL IN BED. HD STILL ON GOING. NO SIGN OF DISTRESS NOTED. WILL CONTINUE TO MONITOR.
[2016-06-14] MEDS ORDERED: LACTULOSE 20 GM/30 ML UDC PO SCH (14:03)
--- NOTE | 2016-06-14 14:09 | NUR ---
INSULIN NOT GIVEN DUE TO PATIENT NOT EATING AT THIS TIME. WILL CONTINUE TO MONITOR. HD STILL IN PROGRESS.
--- NOTE | 2016-06-14 14:10 | NUR ---
PATIENT FINISHED WITH HD. NO SIGN OF DISTRESS NOTED. 2.2L OUTPUT PER DIALYSIS NURSE. VSS. BP 140/68. P89. WILL CONTINUE TO MONITOR.
[2016-06-14] MEDS ORDERED: CLEOCIN HCL300 MG PO (14:28)
[2016-06-14] MEDS ORDERED: FLORASTOR 33 MG1 CAP PO (14:28)
[2016-06-14] MEDS ORDERED: Dressing, Gauze TP ×2 (14:28)
--- NOTE | 2016-06-14 15:20 | NUR ---
PER DR PHAM, IT'S OK TO NOT GIVE LACTULOSE FOR NOW.
[2016-06-14 16:00] VITALS: BP 155/78
--- NOTE | 2016-06-14 16:15 | NUR ---
TOLD PATIENT THAT HE WILL DISCHARGE HOME TODAY, PATIENT STATED HIS DAUGHTER WILL COME AND PICK HIM UP AROUND [phone].
--- NOTE | 2016-06-14 17:41 | NUR ---
WOUND PHOTO TAKEN FROM LEFT AND RIGHT FOOT. DRESSING CHANGE GIVEN, CLEANED WOUND, PAD DRY, APPLIED THERA-HONEY AND REENFORCED WITH GAUZE AND KERLIX. PATIENT TOLERATED WELL. WOUND SUPPLIES AND WOUND CARE TEACHING GIVEN, PATIENT VERBALIZED UNDERSTANDING.
--- NOTE | 2016-06-14 19:00 | NUR ---
ALL DISCHARGE PAPERS SIGNED BY PATIENT'S DAUGHTER. ALL DISCHARGE MEDICATION PRESCRIPTION, AND FOLLOW UP WITH PCP INSTRUCTIONS GIVEN, ALSO WOUND CARE TEACHING PROVIDED WITH DRESSING SUPPLIES. PATIENT AND DAUGHTER VERBALIZED UNDERSTANDING. ALL IV'S, ID BANDS AND TELE MONITOR REMOVED. ALL BELONGINGS WITH PATIENT. PHOTO OF WOUND TO BILATERAL FOOT AND PUT IN CHART. PATIENT WILL BE DISCHARGE HOME SELF CARE VIA PRIVATE VEHICLE WITH HIS DAUGHTER. PATIENT LEFT THE HOSPITAL IN STABLE CONDITION. NO SIGN OF DISTRESS NOTED. VSS NO FEVER. DENIED ANY PAIN OR DISCOMFORT. DENIED N/V/D.
[2016-06-22] MEDS ORDERED: AMBIEN10 MG PO (04:22)
[2016-06-22] MEDS ORDERED: LIPITOR80 MG PO (04:22)
[2016-06-22] MEDS ORDERED: HUMULIN R100 U/M1 SUBQ (08:55)
[2016-06-24] MEDS ORDERED: MOTRIN600 MG PO (09:17)
[2016-09-07] MEDS ORDERED: RENVELA800 MG PO ×2 (10:40→10:43)
[2016-09-07] MEDS ORDERED: AMLODIPINE BESYL5 M1 PO (10:40)
[2016-09-07] MEDS ORDERED: NORVASC10 MG PO (10:43)
== END 2016-06-14 19:00 | disposition home or self-care (01) | DRG 420 ==
LOC: MED 19:49 → MTU 23:33
PROVIDERS: ADMIT Family Medicine; ATTEND Student in an Organized Health Care Education/Training Program
PROC: 5A1D60Z (ICD-10-PCS; principal; 2016-06-11)
DX: E11.621 Type 2 diabetes mellitus with foot ulcer (principal); N17.0 Acute kidney failure with tubular necrosis; I21.3 ST elevation (STEMI) myocardial infarction of unspecified site; G93.41 Metabolic encephalopathy; I50.43 Acute on chronic combined systolic (congestive) and diastolic (congestive) heart failure; K31.84 Gastroparesis; N18.6 End stage renal disease; K72.90 Hepatic failure, unspecified without coma; E11.40 Type 2 diabetes mellitus with diabetic neuropathy, unspecified; E11.22 Type 2 diabetes mellitus with diabetic chronic kidney disease; E11.51 Type 2 diabetes mellitus with diabetic peripheral angiopathy without gangrene; E87.8 Other disorders of electrolyte and fluid balance, not elsewhere classified; L03.116 Cellulitis of left lower limb; E83.39 Other disorders of phosphorus metabolism; E11.65 Type 2 diabetes mellitus with hyperglycemia; E11.43 Type 2 diabetes mellitus with diabetic autonomic (poly)neuropathy; K43.9 Ventral hernia without obstruction or gangrene; E78.5 Hyperlipidemia, unspecified; E87.5 Hyperkalemia; E83.51 Hypocalcemia; I27.2 Other secondary pulmonary hypertension; I13.2 Hypertensive heart and chronic kidney disease with heart failure and with stage 5 chronic kidney disease, or end stage renal disease; E83.41 Hypermagnesemia; I16.0 Hypertensive urgency; I88.8 Other nonspecific lymphadenitis; J45.909 Unspecified asthma, uncomplicated; D63.8 Anemia in other chronic diseases classified elsewhere; Z99.2 Dependence on renal dialysis; Z79.82 Long term (current) use of aspirin; Z79.899 Other long term (current) drug therapy; I25.2 Old myocardial infarction; Z95.0 Presence of cardiac pacemaker; Z89.422 Acquired absence of other left toe(s); Z89.421 Acquired absence of other right toe(s); Z90.49 Acquired absence of other specified parts of digestive tract; Z71.89 Other specified counseling; Z86.19 Personal history of other infectious and parasitic diseases

== ENCOUNTER 2016-09-03 06:26 | Inpatient (IN) | payer MEDICAID ==
[~2016-09-03] VITALS: Ht 177.8 cm; Wt 84.4 kg
[~2016-09-03 06:26] MED LIST changes: -ADALAT CC90 MG PO; -AMBIEN10 MG PO; -AMLODIPINE10 M1 PO; -APRESOLINE25 MG PO; +ASPI81CT89 PO; -ASPIRIN81 M1 PO; -ATIVAN1 MG PO; -BACTRIM DS 800/1 TAB PO; -BACTROBAN 2%20 MG/GM NS; +CARV6.25 PO; -CATAPRES0.2 MG PO; -CIPRO500 MG PO; -CLEOCIN HCL150 MG PO; +CLON0.2T43 PO; -COLACE100 M1 PO; -COREG6.25 MG PO; -CYMBALTA20 MG PO; -DOCUSATE SODIU PO; -ELAVIL25 M1 PO; -FOSRENOL500 MG PO; -HUMULIN R100 U/M1 SUBQ; -HYDROCHLOROTHIAZIDE PO; +IBUP-2213 PO; +INSU100S5 SUBQ; -ISORDIL10 M1 PO; -KEFLEX250 MG PO; -KEFLEX250 MG/5 M PO; -LEVAQUIN250 MG PO; -LIORESAL10 MG PO; +LIP80 PO; -LIPITOR80 MG PO; -LONITEN2.5 MG PO; -LOPRESSOR25 MG PO; -LOPRESSOR50 MG PO; -MICARDIS HCT 251 TAB PO; -NEPHRO-VITE VIT1 TAB PO; -NEURONTIN300 MG PO; -NORCO 325 MG-7.1 TAB PO; -NORCO 5/325 MG1 TAB PO; -NORVASC10 MG PO; -NOVOLIN R100 UNITS/ SUBQ; -PEPCID20 MG PO; -PHOSLO667 M1 PO; -PROCARDIA XL90 MG PO; -REGLAN5 MG PO; -RENA-VITE RX1 TAB PO; -RENAGEL800 MG PO; -RENVELA800 MG PO; +SEVE800T6 PO; -SILVER SULFADIAZINE TP; -TELMISARTAN PO; -THORAZINE PO; -VITAMIN B COMPL PO; -ZOFRAN4 M1 PO; -ZOFRAN8 MG PO; -[UNRECOGNIZED DRUG - REMARK]; -[UNRECOGNIZED DRUG - REMARK]; -[UNRECOGNIZED DRUG - REMARK]; -[UNRECOGNIZED DRUG - REMARK]; -[UNRECOGNIZED DRUG - REMARK]
--- NOTE | 2016-09-03 06:28 | NUR ---
PT JYOTI ALS. TAKEN TO BED 3
--- NOTE | 2016-09-03 06:28 | NUR ---
Dr. Fuller evaluating patient at bedside.
[2016-09-03 06:30] VITALS: BP 180/100
--- NOTE | 2016-09-03 06:30 | NUR ---
56Y M BIB AMBULANCE FROM [facility], PT HAD CHEST PAIN WHILE ON HEMODIALYSIS. PAIN 7/10 IN SCALE AND DESCRIBED PRESSURE PAIN.
[2016-09-03] MEDS ORDERED: NITROGLYCERIN 0.4 MG TAB SL ONE (06:35)
[2016-09-03] MEDS ORDERED: ASPIRIN 325 MG TAB PO ONE (06:35)
[2016-09-03 06:49] LABS: BASOPHILS # (AUTO) 0.4 K/uL (0.00-0.22); BASOPHILS % (AUTO) 3.6 % (0.0-2.0); EOSINOPHILS # (AUTO) 0.1 K/uL (0-0.4); HEMOGLOBIN 10.4 g/dL (12.0-18.0); LYMPHOCYTES % (AUTO) 9.3 % (20.5-51.1); MEAN CORPUSCULAR HEMOGLOBIN 31 pg (27-31); MEAN CORPUSCULAR HGB CONC 33 g/dL (33-37); MEAN CORPUSCULAR VOLUME 96 fL (80-94); MONOCYTES # (AUTO) 0.6 K/uL (0.8-1.0); MONOCYTES % (AUTO) 5.3 % (1.7-9.3); NEUTROPHILS # (AUTO) 8.5 K/uL (1.8-7.7); NEUTROPHILS % (AUTO) 80.8 % (42.2-75.2); PLATELET COUNT (AUTO) 226 K/uL (140-450); RED BLOOD CELL COUNT(AUTO) 3.34 MIL/uL (4.20-6.10); WHITE BLOOD COUNT (AUTO) 10.6 K/uL (4.8-10.8)
[2016-09-03 07:12] LABS: ALBUMIN 3.2 g/dL (3.4-5.0); ANION GAP 17.7 (8-16); CALCIUM 9.1 mg/dL (8.5-10.1); TOTAL BILIRUBIN 0.3 mg/dL (0.0-1.0)
--- NOTE | 2016-09-03 07:15 | NUR ---
REPORT GIVEN TO KHLOE GALLEGOS.
[2016-09-03 07:17] LABS: CREATININE 9.6 mg/dL (0.6-1.3)
[2016-09-03 07:19] LABS: POTASSIUM 5.7 mmol/L (3.5-5.1)
[2016-09-03 07:20] LABS: INR 1.2 (0.8-1.2); PARTIAL THROMBOPLASTIN TIME 27.8 secs (22-35.6)
--- NOTE | 2016-09-03 07:30 | NUR ---
Patient appears to be resting comfortably in bed. Vital Signs within normal limits. Respirations even and unlabored.
[2016-09-03] MEDS ORDERED: ONDANSETRON 4 MG/2 ML VIAL IVP PRN (08:00)
[2016-09-03] MEDS ORDERED: HYDROcodone/APAP 5/325 MG 1 TAB TAB PO PRN (08:00)
[2016-09-03] MEDS ORDERED: ACETAMINOPHEN 325 MG TAB PO PRN (08:00)
[2016-09-03] MEDS ORDERED: IBUPROFEN 600 MG TAB PO PRN (08:00)
[2016-09-03] MEDS ORDERED: DEXTROSE 50% 50 ML SYR IVP PRN (08:00)
--- NOTE | 2016-09-03 08:04 | NUR ---
RT at bedside to give patient breathing treatment.
[2016-09-03] MEDS ORDERED: IPRATROPIUM 0.02% 0.5 MG/2.5 ML NEBU INH ONE (08:05)
[2016-09-03] MEDS ORDERED: ALBUTEROL 0.083% 2.5 MG/3 ML NEBU INH ONE (08:05)
--- NOTE | 2016-09-03 08:11 | NUR ---
Patient will be admitted to care of DR ALFRED. Admited to TELE. Will go to room 114. Belongings list completed. Report to ALEX. GALLEGOS.
[2016-09-03 08:30] VITALS: BP 203/117
--- NOTE | 2016-09-03 08:30 | NUR ---
PT ARRIVED FROM ER VIA GURNEY. PT IS AAOX4 GEORGIAN SPEAKING, ON O2 2L VIA NC, IV TO LEFT HAND 22G SALINE LOCK, RIGHT UPPER ARM AV SHUNT, PT HAS HX OF RIGHT/LEFT TOES AMPUTATION, LEFT FOOT OPEN SURGICAL WOUND WITH DRESSING DRY AND INTACT. PT STATES NO SOB OR CHEST PAIN. INITIAL ASSESSMENT COMPLETED, ALL SAFETY PRECAUTION MET. CALL LIGHT WITHIN REACH. WILL CONTINUE TO MONITOR.
[2016-09-03] MEDS: ATORVASTATIN 80 MG TAB PO SCH (08:59)
[2016-09-03] MEDS: SEVELAMER CARBONATE 800 MG TAB PO SCH ×3 (08:59→16:59)
[2016-09-03] MEDS: CARVEDILOL 6.25 MG TAB PO SCH ×2 (09:00→21:32)
[2016-09-03] MEDS: cloNIDine 0.1 MG TAB PO SCH ×3 (09:00→16:59)
--- NOTE | 2016-09-03 09:02 | NUR ---
DUE MEDICATIONS GIVEN, MEDICATED PT FOR HIGH BP, WILL REASSESS AT 0930. Addendum: 09/03/16 at 0905 by Sharron Jackson RN WILL REASSESS AT 1030
--- NOTE | 2016-09-03 10:45 | NUR ---
PT STATES NO SOB OR CHEST PAIN, ALL NEEDS MET. CALL LIGHT WITHIN REACH. WILL CONTINUE TO MONITOR.
[2016-09-03] MEDS: BLOOD GLUCOSE MONITORING 1 DEV DEV FS SCH ×3 (11:40→20:43)
[2016-09-03 12:00] VITALS: BP 158/87
--- NOTE | 2016-09-03 12:50 | NUR ---
DUE MEDICATIONS GIVEN, PT CURRENTLY IN BED. ALL NEEDS MET. CALL LIGHT WITHIN REACH. WILL CONTINUE TO MONITOR.
[2016-09-03] MEDS: INSULIN LISPRO SLIDING SCALE 100 UNITS/ML VIAL SUBQ PRN ×2 (12:56→21:41)
[2016-09-03] MEDS: MORPHINE SULFATE 2 MG/ML SYR IVP PRN (14:30)
[2016-09-03] MEDS ORDERED: amLODIPine 5 MG TAB PO SCH (14:30)
--- NOTE | 2016-09-03 15:25 | NUR ---
PT CURRENTLY SLEEPING. CALL LIGHT WITHIN REACH. WILL CONTINUE TO MONITOR.
[2016-09-03 16:00] VITALS: BP 147/91
--- NOTE | 2016-09-03 17:00 | NUR ---
DUE MEDICATIONS GIVEN, PT CURRENTLY RESTING IN BED. ALL NEEDS MET. CALL LIGHT WITHIN REACH . WILL CONTINUE TO MONITOR.
--- NOTE | 2016-09-03 17:37 | NUR ---
DIALYSIS NURSE CURRENTLY WITH PT. ALL NEEDS MET. CALL LIGHT WITHIN REACH. WILL CONTINUE TO MONITOR.
--- NOTE | 2016-09-03 19:25 | NUR ---
ENDORSED PLAN OF CARE TO NIGHT NURSE, PT CURRENTLY GETTING DIALYSIS.
[2016-09-03 20:00] VITALS: BP 163/91
--- NOTE | 2016-09-03 20:44 | NUR ---
PATIENT RESTING IN BED, RECEIVING HD WITH PUBLIC RELATIONS INTERN AT BEDSIDE. NO SIGNS OF DISTRESS OR SOB NOTED. BLOOD SUGAR IS 173. WILL PROVIDE INSULIN COVERAGE BASED PER SLIDING SCALE. CALL LIGHT WITHIN REACH. WILL CONTINUE TO MONITOR PATIENT.
--- NOTE | 2016-09-03 21:21 | NUR ---
DIALYSIS COMPLETED. 3 LITER OUTPUT REPORTED BY DIALYSIS NURSE.
[2016-09-03] MEDS: LORazepam 2 MG/ML VIAL IVP PRN (21:32)
--- NOTE | 2016-09-03 22:45 | NUR ---
ROUNDED ON PATIENT. PATIENT SITTING UP IN BED EATING CCHO SNACK. NO SIGNS OF DISTRESS OR SOB. PATIENT'S NEEDS MET AT THIS TIME. CALL LIGHT WITHIN REACH. WILL CONTINUE TO MONITOR PATIENT.
[2016-09-04] VITALS: BP 162/72
--- NOTE | 2016-09-04 | NUR ---
PATIENT RESTING IN BED, BUT CAN BE AROUSED BY NAME. VITALS ARE WNL. NO SIGNS OF SOB OR RESPIRATORY DISTRESS NOTED. NO REPORTS OF PAIN OR DISCOMFORT AT THIS TIME. PATIENT'S NEEDS MET. CALL LIGHT WITHIN REACH. WILL CONTINUE TO MONITOR PATIENT.
--- NOTE | 2016-09-04 02:00 | NUR ---
PATIENT REPORTING ABDOMINAL PAIN 12/01. WILL MEDICATE PER DOCTOR'S ORDERS.
[2016-09-04] MEDS: MORPHINE SULFATE 2 MG/ML SYR IVP PRN ×2 (02:02→10:42)
[2016-09-04 04:00] VITALS: BP 148/81
--- NOTE | 2016-09-04 04:43 | NUR ---
PATIENT RESTING COMFORTABLY IN BED, BUT CAN BE AROUSED BY NAME. VITALS ARE STABLE. NO REPORTS OF PAIN OR DISCOMFORT AT THIS TIME. PATIENT'S NEEDS MET. CALL LIGHT WITHIN REACH. WILL CONTINUE TO MONITOR.
[2016-09-04] MEDS: BLOOD GLUCOSE MONITORING 1 DEV DEV FS SCH ×4 (06:18→21:16)
[2016-09-04 06:35] LABS: BASOPHILS # (AUTO) 0.1 K/uL (0.00-0.22); BASOPHILS % (AUTO) 0.7 % (0.0-2.0); EOSINOPHILS # (AUTO) 0.2 K/uL (0-0.4); EOSINOPHILS % (AUTO) 2.5 % (0.0-4.0); HEMATOCRIT 31.3 % (36-52); HEMOGLOBIN 10.3 g/dL (12.0-18.0); LYMPHOCYTES # (AUTO) 0.9 K/uL (2.0-11.5); LYMPHOCYTES % (AUTO) 11.9 % (20.5-51.1); MEAN CORPUSCULAR HEMOGLOBIN 31 pg (27-31); MEAN CORPUSCULAR HGB CONC 33 g/dL (33-37); MEAN CORPUSCULAR VOLUME 96 fL (80-94); MONOCYTES # (AUTO) 0.7 K/uL (0.8-1.0); MONOCYTES % (AUTO) 10.3 % (1.7-9.3); NEUTROPHILS # (AUTO) 5.3 K/uL (1.8-7.7); NEUTROPHILS % (AUTO) 74.6 % (42.2-75.2); PLATELET COUNT (AUTO) 210 K/uL (140-450); RED BLOOD CELL COUNT(AUTO) 3.27 MIL/uL (4.20-6.10); RED CELL DISTRIBUTION WIDTH 16.3 % (11.6-13.7); WHITE BLOOD COUNT (AUTO) 7.2 K/uL (4.8-10.8)
--- NOTE | 2016-09-04 07:03 | NUR ---
PATIENT HAS BEEN SCREENED AND CATEGORIZED HIGH NUTRITION RISK. PATIENT WILL BE SEEN WITHIN 1-2 DAYS OF ADMISSION. 09/04/16-09/05/16 ASHLEE ARCE MS, RDN
--- NOTE | 2016-09-04 07:25 | NUR ---
RECEIVED REPORT FROM NIGHT.PT IS AAOX4 GEORGIAN SPEAKING, ON ROOM AIR, IV TO LEFT HAND 22G SALINE LOCK, RIGHT UPPER ARM AV SHUNT, PT HAS HX OF RIGHT/LEFT TOES AMPUTATION, LEFT FOOT OPEN SURGICAL WOUND WITH DRESSING DRY AND INTACT. PT STATES NO PAIN AT THIS TIME. INITIAL ASSESSMENT COMPLETED, ALL SAFETY PRECAUTION MET. CALL LIGHT WITHIN REACH. WILL CONTINUE TO MONITOR.
--- NOTE | 2016-09-04 07:25 | NUR ---
PATIENT IN STABLE CONDITION. ALL NEEDS ATTENDED TO DURING SHIFT. ENDORSED CONTINUITY OF CARE TO EN [place].
[2016-09-04 08:13] VITALS: BP 152/85
[2016-09-04 08:23] LABS: CALCIUM 8.8 mg/dL (8.5-10.1); CARBON DIOXIDE 28.1 mmol/L (21-32); POTASSIUM 5.1 mmol/L (3.5-5.1)
[2016-09-04] MEDS: cloNIDine 0.1 MG TAB PO SCH ×4 (08:44→16:24)
[2016-09-04] MEDS: ATORVASTATIN 80 MG TAB PO SCH (08:45)
[2016-09-04] MEDS: SEVELAMER CARBONATE 800 MG TAB PO SCH ×3 (08:46→16:22)
[2016-09-04] MEDS: CARVEDILOL 6.25 MG TAB PO SCH ×2 (08:46→20:26)
[2016-09-04] MEDS: ASPIRIN 81 MG TAB.CHEW PO SCH (08:47)
[2016-09-04] MEDS: amLODIPine 5 MG TAB PO SCH (09:12)
--- NOTE | 2016-09-04 09:14 | NUR ---
DUE MEDICATIONS GIVEN, PT TOLERATED WELL, PT CURRENTLY RESTING IN BED ALL NEEDS MET. CALL LIGHT WITHIN REACH. WILL CONTINUE TO MONITOR.
[2016-09-04 09:16] LABS: MAGNESIUM 1.9 mg/dL (1.8-2.4); PHOSPHORUS 7.6 mg/dL (2.5-4.9)
[2016-09-04 09:29] LABS: CREATINE KINASE MB 3.4 ng/mL (0-3.6)
--- NOTE | 2016-09-04 11:10 | NUR ---
PT CURRENTLY SLEEPING, CALL LIGHT WITHIN REACH. WILL CONTINUE TO MONITOR.
[2016-09-04 12:00] VITALS: BP 120/71
[2016-09-04] MEDS: INSULIN LISPRO SLIDING SCALE 100 UNITS/ML VIAL SUBQ PRN ×2 (12:26→21:17)
--- NOTE | 2016-09-04 12:32 | NUR ---
DUE MEDICATIONS GIVEN. PT CURRENTLY EATING LUNCH. ALL NEEDS MET, CALL LIGHT WITHIN REACH. WILL CONTINUE TO MONITOR.
--- NOTE | 2016-09-04 14:25 | NUR ---
CHECKED IN PT, ALL NEEDS MET. CALL LIGHT WITHIN REACH.WILL CONTINUE TO MONITOR.
[2016-09-04 16:01] VITALS: BP 140/76
--- NOTE | 2016-09-04 16:24 | NUR ---
DUE MEDICATIONS GIVEN, PT TOLERATED WELL. ALL NEEDS MET, CALL LIGHT WITHIN REACH. WILL CONTINUE TO MONITOR.
--- NOTE | 2016-09-04 19:15 | NUR ---
ENDORSED PLAN OF CARE TO NIGHT NURSE, PT IN STABLE CONDITION.
--- NOTE | 2016-09-04 19:30 | NUR ---
RECEIVED REPORT FROM DAYSHIFT NURSE. PT RESTING IN BED, AOX4, ABLE TO VERBALIZE NEEDS. PHYSICAL EDUCATION INSTRUCTOR IN PLACE. RIGHT UPPER ARM AV SHUNT NOTED. LEFT TOES AND RIGHT FOOT AMPUTATION NOTED. PT DENIES CP, SOB OR S/S OF ACUTE DISTRESS. PT DENIES PAIN. IV ACCESS ASYMPTOMATIC, PATENT AND INTACT. SALINE LOCKED DISCUSSED AND REVIEWED PLAN OF CARE WITH PT, PT VERBALIZES UNDERSTANDING. SAFETY MEASURES ENSURED. CALL LIGHT WITHIN REACH. WILL CONTINUE TO MONITOR.
[2016-09-04 20:00] VITALS: BP 151/83
--- NOTE | 2016-09-04 20:28 | NUR ---
ADMINISTERED MEDICATION WITH EDUCATION. PT VERBALIZES UNDERSTANDING. PT TOLERATED WELL. PT OBSERVED PERFORMING ADLS INDEPENDENTLY. ALL NEEDS MET. SAFETY MEASURES ENSURED. WILL CONTINUE TO MONITOR.
[2016-09-04] MEDS: LORazepam 2 MG/ML VIAL IVP PRN (23:25)
--- NOTE | 2016-09-04 23:25 | NUR ---
ADMINISTERED ATIVAN WITH EDUCATION PER PT REQUEST, PT VERBALIZES UNDERSTANDING. PT TOLERATED WELL. SAFETY MEASURES ENSURED. CALL LIGHT WITHIN REACH. WILL CONTINUE TO MONITOR.
[2016-09-05] VITALS (7 sets, daily range): BP systolic 145–187; BP diastolic 7–96
--- NOTE | 2016-09-05 04:00 | NUR ---
PT SLEEPING COMFORTABLY. CONDITION STABLE. ALL NEEDS MET. CALL LIGHT WITHIN REACH. WILL CONTINUE TO MONITOR.
[2016-09-05] MEDS: BLOOD GLUCOSE MONITORING 1 DEV DEV FS SCH ×4 (06:22→20:57)
[2016-09-05 06:24] LABS: BASOPHILS # (AUTO) 0.1 K/uL (0.00-0.22); BASOPHILS % (AUTO) 0.9 % (0.0-2.0); EOSINOPHILS # (AUTO) 0.2 K/uL (0-0.4); EOSINOPHILS % (AUTO) 2.9 % (0.0-4.0); HEMATOCRIT 31.5 % (36-52); LYMPHOCYTES # (AUTO) 1.2 K/uL (2.0-11.5); LYMPHOCYTES % (AUTO) 16.1 % (20.5-51.1); MEAN CORPUSCULAR HEMOGLOBIN 31 pg (27-31); MEAN CORPUSCULAR HGB CONC 32 g/dL (33-37); MEAN CORPUSCULAR VOLUME 97 fL (80-94); MONOCYTES # (AUTO) 0.6 K/uL (0.8-1.0); MONOCYTES % (AUTO) 7.9 % (1.7-9.3); NEUTROPHILS # (AUTO) 5.2 K/uL (1.8-7.7); NEUTROPHILS % (AUTO) 72.2 % (42.2-75.2); PLATELET COUNT (AUTO) 207 K/uL (140-450); RED BLOOD CELL COUNT(AUTO) 3.26 MIL/uL (4.20-6.10); WHITE BLOOD COUNT (AUTO) 7.3 K/uL (4.8-10.8)
[2016-09-05 06:27] LABS: ANION GAP 17.8 (8-16); CALCIUM 8.8 mg/dL (8.5-10.1); CARBON DIOXIDE 27.9 mmol/L (21-32); MAGNESIUM 2.1 mg/dL (1.8-2.4); POTASSIUM 5.7 mmol/L (3.5-5.1)
--- NOTE | 2016-09-05 06:31 | NUR ---
BLOOD GLUCOSE 133, NO INSULIN COVERAGE NEEDED. CONDITION STABLE.
[2016-09-05 06:44] LABS: CREATININE 10.2 mg/dL (0.6-1.3)
--- NOTE | 2016-09-05 07:32 | NUR ---
ENDORSED PLAN OF CARE TO DAYSHIFT NURSE. CONDITION STABLE.
--- NOTE | 2016-09-05 07:35 | NUR ---
RECEIVED REPORTS FROM NIGHT RN. AAOX 4, IV INTACT AND PATENT, DIALYSIS ACCESS RIGHT UPPER ARM NOTED, BRUIT AND THRILL PRESENT, PATIENT DENIES PAIN, NO S/S OF DISTRESS NOTED, DRESSING TO LEFT FOOT DRY AND INTACT, CALL LIGHT WITHIN REACH, SAFETY MEASURE ENSURED, WILL CONTINUE TO MONITOR.
--- NOTE | 2016-09-05 08:23 | NUR ---
AGUIRRE FROM DIALYSIS MADE AWARE IF NEED FOR DIALYSIS TODAY.
--- NOTE | 2016-09-05 08:36 | NUR ---
WOUND CARE EVALUATION NOTES: REASON FOR EVALUATION: LEFT FOOT WOUND COMPLETE SKIN ASSESSMENT DONE ON THIS 56 Y/O MALE PATIENT FROM HOME TO [facility], WITH INITIAL DIAGNOSIS OF CONGESTIVE HEART FAILURE. PAST MEDICAL HISTORY INCLUDE HEPATITIS C, DIABETES, HYPERTENSION AND BILATERAL TOE AMPUTATION. ALL ABOVE INFORMATION WAS OBTAINED FROM THE ADMISSION H&P. LABS ARE WBC 7.3, H/H 10.0/31.5, GLUCOSE 163, ALBUMIN 3.2, PT/INR 11.0/1.2 AND PTT 27.8. CURRENT MEDS INCLUDE ASPIRIN, INSULIN, MORPHINE, ATIVAN AND IBUPROFEN. PATIENT IS ALERT, ORIENTED TO PERSON, PLACE, DATE AND TIME. SKIN WARM TO TOUCH WNL, BILATERAL DISTAL FEET AMPUTATION WITH SCARRING, NO EDEMA, NO HAIR GROWTH, MULTIPLE DISCOLORATIONS AND SCARRING TO BLE AND BILATERAL PEDAL PULSES ARE FAINT. RIGHT ARM FISTULA NOTED, WITH DRESSING DRY AND INTACT. BOWEL CONTINENT, ABLE TO AMBULATE TO THE RESTROOM CLAIMED. ABLE TO MAKE HIS NEEDS KNOWN. SCARRING NOTED ON THE SACRALCOCCYX. ABLE TO TURN SELF WITH NO ASSISTANCE. INITIAL PLAN OF CARE AND PRESSURE PREVENTIVE MEASURES DISCUSSED, ABLE TO VERBALIZE UNDERSTANDING. INTEGUMENTARY: LEFT DISTAL FOOT - DIABETIC FOOT ULCER - DRY. PW WITH HYPERKERATOSIS NOTED. RIGHT DISTAL FOOT - SURGICAL - WITH SCARRING AND CALLUS NOTED RECOMMENDATIONS: -PAINT LEFT DISTAL FOOT WITH BETADINE BIDWC AND LEAVE OPEN TO AIR -TURN AND REPOSITION PATIENT Q2H TO -ASSESS AND MONITOR SKIN CONDITION DURING POSITION CHANGE, PLEASE PAY PARTICULAR ATTENTION TO SACRALCOCCYX, ELBOWS AND HEELS -OFFLOAD BILATERAL HEELS BY PLACING PILLOWS UNDER CALVES AT ALL TIMES, UNLESS OTHERWISE CONTRAINDICATED -KEEP SKIN CLEAN AND DRY AT ALL TIMES. PODIATRY CONSULT IF OK WITH PMD. RECOMMENDATIONS DISCUSSED WITH PRIMARY RN. WILL FOLLOW UP PATIENT Q 7 DAYS AND PRN. PLEASE CONTACT [facility] FOR ANY CONCERNS, QUESTIONS AND CHANGES IN SKIN CONDITION.
[2016-09-05] MEDS: cloNIDine 0.1 MG TAB PO SCH ×4 (08:56→17:30)
[2016-09-05] MEDS: CARVEDILOL 6.25 MG TAB PO SCH ×2 (08:56→20:58)
[2016-09-05] MEDS: amLODIPine 5 MG TAB PO SCH (08:57)
[2016-09-05] MEDS: ATORVASTATIN 80 MG TAB PO SCH (09:02)
[2016-09-05] MEDS: ASPIRIN 81 MG TAB.CHEW PO SCH (09:03)
[2016-09-05] MEDS: SEVELAMER CARBONATE 800 MG TAB PO SCH ×3 (09:03→17:31)
[2016-09-05] MEDS: CHLORHEXADINE GLUC 2% CLOTH TP SCH (09:04)
[2016-09-05] MEDS: MUPIROCIN 2% OINT 22 GM TUBE TP SCH (09:04)
--- NOTE | 2016-09-05 11:27 | NUR ---
09/05/16 RD INITIAL ASSESSMENT COMPLETED PLEASE REFER TO NUTRITION ASSESSMENT UNDER CARE ACTIVITY FOR ESTIMATED NUTRITIONAL NEEDS. RD RECOMMENDATIONS: 1. CONTINUE ON 2 GM SODIUM AND CCHO 60 GM DIET TOLERATED. 2. ENCOURAGE INCREASED PO INTAKE. 3. RD WILL F/U 3-5 DAYS; MODERATE RISK. KENJI HOUSE RD
--- NOTE | 2016-09-05 11:50 | NUR ---
PT RESTING IN BED. NO S/S OF ACUTE DISTRESS. HD RN AT BEDSIDE. CALL LIGHT WITHIN REACH. SAFETY MEASURES ENSURED. WILL CONTINUE TO MONITOR.
[2016-09-05] MEDS: GAUZE TP SCH (12:51)
[2016-09-05] MEDS: INSULIN LISPRO SLIDING SCALE 100 UNITS/ML VIAL SUBQ PRN ×2 (13:02→18:18)
--- NOTE | 2016-09-05 13:21 | NUR ---
DIALYSIS COMPLETE. 3000 OUT. NO S/S OF ACUTE DISTRESS. PT DENIES PAIN. CALL LIGHT WITHIN REACH. SAFETY MEASURES ENSURED. WILL CONTINUE TO MONITOR.
--- NOTE | 2016-09-05 15:21 | NUR ---
PT RESTING IN BED. NO S/S OF ACUTE DISTRESS. PT DENIES PAIN. CALL LIGHT WITHIN REACH. SAFETY MEASURES ENSURED. WILL CONTINUE TO MONITOR.
[2016-09-05] MEDS: LORazepam 2 MG/ML VIAL IVP PRN (16:05)
--- NOTE | 2016-09-05 19:30 | NUR ---
ASSUMED CARE OF PATIENT, AWAKE, ALERT AND ORIENTED. EATING DINNER. NO COMPLAIN. CALL LIGHT WITHIN REACH.
--- NOTE | 2016-09-05 19:36 | NUR ---
ENDORSED PLAN OF CARE TO NIGHT RN. PT REMAINS IN STABLE CONDITION.
--- NOTE | 2016-09-05 20:00 | NUR ---
EATING DINNER, FAMILY AT BEDSIDE. VITAL SIGNS STABLE. AFEBRILE NOTED. NO COMPLAINS. CALL LIGHT WITHIN REACH.
[2016-09-05] MEDS ORDERED: traZODone 50 MG TAB PO PRN (22:25)
[2016-09-05] MEDS: MORPHINE SULFATE 2 MG/ML SYR IVP PRN (23:42)
--- NOTE | 2016-09-06 | NUR ---
PAIN MEDS GIVEN. VITAL SIGNS STABLE. CALL LIGHT WITHIN REACH.
[2016-09-06] MEDS: LORazepam 2 MG/ML VIAL IVP PRN ×2 (02:52→13:40)
[2016-09-06 04:29] VITALS: BP 149/86
--- NOTE | 2016-09-06 04:49 | NUR ---
VITAL SIGNS STABLE. NO COMPLAINS. AFEBRILE. CALL LIGHT WITHIN REACH.
[2016-09-06] MEDS: BLOOD GLUCOSE MONITORING 1 DEV DEV FS SCH ×5 (05:49→20:46)
[2016-09-06] MEDS: INSULIN LISPRO SLIDING SCALE 100 UNITS/ML VIAL SUBQ PRN ×3 (05:53→17:11)
[2016-09-06 06:07] LABS: BASOPHILS # (AUTO) 0.1 K/uL (0.00-0.22); BASOPHILS % (AUTO) 0.7 % (0.0-2.0); EOSINOPHILS # (AUTO) 0.2 K/uL (0-0.4); EOSINOPHILS % (AUTO) 2.3 % (0.0-4.0); HEMATOCRIT 33.1 % (36-52); HEMOGLOBIN 10.4 g/dL (12.0-18.0); LYMPHOCYTES % (AUTO) 12.3 % (20.5-51.1); MEAN CORPUSCULAR HEMOGLOBIN 30 pg (27-31); MEAN CORPUSCULAR HGB CONC 31 g/dL (33-37); MEAN CORPUSCULAR VOLUME 97 fL (80-94); MONOCYTES # (AUTO) 0.9 K/uL (0.8-1.0); MONOCYTES % (AUTO) 10.3 % (1.7-9.3); NEUTROPHILS # (AUTO) 6.3 K/uL (1.8-7.7); NEUTROPHILS % (AUTO) 74.4 % (42.2-75.2); PLATELET COUNT (AUTO) 215 K/uL (140-450); RED BLOOD CELL COUNT(AUTO) 3.41 MIL/uL (4.20-6.10); RED CELL DISTRIBUTION WIDTH 15.6 % (11.6-13.7); WHITE BLOOD COUNT (AUTO) 8.5 K/uL (4.8-10.8)
[2016-09-06 06:39] LABS: ANION GAP 14.5 (8-16); CALCIUM 8.9 mg/dL (8.5-10.1); CARBON DIOXIDE 30.6 mmol/L (21-32); POTASSIUM 5.1 mmol/L (3.5-5.1)
[2016-09-06 06:41] LABS: CREATININE 7.9 mg/dL (0.6-1.3)
--- NOTE | 2016-09-06 07:16 | NUR ---
ENDORSED CARE AT BEDSIDE WITH MELODIE GALLEGOS, PATIENT IN STABLE CONDITION.
--- NOTE | 2016-09-06 07:24 | NUR ---
RECEIVED PT IN BED. ASLEEP, AROUSABLE TO VOICE. ALERT ORIENTED X4. NO SOB NOTED AT THIS TIME. DENIES ANY PAIN OR DISCOMFORT AT THIS TIME. PT ON CONTACT ISOLATION. POSITIVE BOWEL SOUNDS NOTED ON FOUR QUADRANTS. DENIES ANY DISCOMFORT WITH BOWEL OR BLADDER ELIMINATION AT THIS TIME. SAFETY PRECAUTION IN PLACE. CALL LIGHT WITHIN REACH.
[2016-09-06 08:00] VITALS: BP 132/76
[2016-09-06] MEDS: ATORVASTATIN 80 MG TAB PO SCH (08:23)
[2016-09-06] MEDS: SEVELAMER CARBONATE 800 MG TAB PO SCH ×3 (08:23→17:06)
[2016-09-06] MEDS: ASPIRIN 81 MG TAB.CHEW PO SCH (08:24)
[2016-09-06] MEDS: amLODIPine 5 MG TAB PO SCH (08:24)
[2016-09-06] MEDS: CARVEDILOL 6.25 MG TAB PO SCH ×2 (08:24→20:45)
[2016-09-06] MEDS: MUPIROCIN 2% OINT 22 GM TUBE TP SCH (08:25)
[2016-09-06] MEDS: CHLORHEXADINE GLUC 2% CLOTH TP SCH (08:29)
[2016-09-06 09:00] VITALS: BP 126/71
[2016-09-06] MEDS: cloNIDine 0.1 MG TAB PO SCH ×3 (09:05→17:07)
[2016-09-06 12:00] VITALS: BP 147/90
--- NOTE | 2016-09-06 15:13 | NUR ---
CHARGE NURSE CALLED DIALYSIS CENTER TO CONFIRM SCHEDULE FOR PT TOMORROW, AND TIME CHANGED TO 7AM. PT MADE AWARE.
[2016-09-06 16:00] VITALS: BP 125/72
[2016-09-06] MEDS: GAUZE TP SCH (16:29)
[2016-09-06] MEDS: MORPHINE SULFATE 2 MG/ML SYR IVP PRN ×2 (16:38→22:01)
--- NOTE | 2016-09-06 19:35 | NUR ---
RECEIVED FROM AM RN IN BED SITTING UP . ABLE TO VERBALIZE NEEDS WELL IN KYRGYZ AND ALBAN[place]. TELEMETRY MONITORING.
--- NOTE | 2016-09-06 19:35 | NUR ---
PT KEPT CLEAN DRY AND COMFORTABLE, NEEDS ATTENDED. NO SOB , DENIES ANY PAIN OR DISCOMFORT NOTED AT THIS TIME. GOOD SKIN CARE PROVIDED. ENDORSED TO NEXT SHIFT FOR CONTINUITY OF CARE. NEXT SHIFT MADE AWARE OF DIALYSIS SCHEDULE AT 7AM TOMORROW.
[2016-09-06 19:57] VITALS: BP 158/86
--- NOTE | 2016-09-06 22:10 | NUR ---
DAUGHTER IN HERE AND BROUGHT IN FOOD . MEDICATED WITH MORPHINE IVP ORDERED AND REQUESTED BY PT. USES CALL LIGHT FOR HELP.
--- NOTE | 2016-09-06 23:29 | NUR ---
SLEEPING AT THIS TIME. NO RESTLESSNESS . TELEMETRY MONITORING.
[2016-09-07 00:13] VITALS: BP 145/85
--- NOTE | 2016-09-07 01:04 | NUR ---
CHECKED ON PT. SLEEPING AT THIS TIME. PT. ABLE TO TURN SELF. TELEMETRY MONITORING HR AT 69. CALL LIGHT WITH IN REACH.
--- NOTE | 2016-09-07 01:43 | NUR ---
RE-CHECKED ON PT. NO SOB. SLEEPING. NO RESTLESSNESS. TELEMETRY MONITORING.
[2016-09-07] MEDS: MORPHINE SULFATE 2 MG/ML SYR IVP PRN ×2 (02:26→06:16)
--- NOTE | 2016-09-07 02:27 | NUR ---
MEDICATED WITH PAIN RELIEVER RT C/O PAIN. PT. WENT BACK TO SLEEP POST MEDICATION
[2016-09-07 04:36] VITALS: BP 140/86
--- NOTE | 2016-09-07 04:45 | NUR ---
PT. TURNS SELF SIDE TO SIDE. INDEPENDENT.PT. ABLE TO VERBALIZE WELL. SLEEPING AT THIS TIME. NO FURTHER COMPLAINTS OF ANY PAIN AT THIS TIME. TELEMETRY MONITORING.
[2016-09-07] MEDS: BLOOD GLUCOSE MONITORING 1 DEV DEV FS SCH (05:50)
[2016-09-07 06:21] LABS: BASOPHILS # (AUTO) 0.1 K/uL (0.00-0.22); BASOPHILS % (AUTO) 0.7 % (0.0-2.0); EOSINOPHILS # (AUTO) 0.2 K/uL (0-0.4); EOSINOPHILS % (AUTO) 1.6 % (0.0-4.0); HEMOGLOBIN 9.9 g/dL (12.0-18.0); LYMPHOCYTES # (AUTO) 0.9 K/uL (2.0-11.5); LYMPHOCYTES % (AUTO) 9.3 % (20.5-51.1); MEAN CORPUSCULAR HEMOGLOBIN 31 pg (27-31); MEAN CORPUSCULAR HGB CONC 32 g/dL (33-37); MEAN CORPUSCULAR VOLUME 97 fL (80-94); MONOCYTES # (AUTO) 0.8 K/uL (0.8-1.0); MONOCYTES % (AUTO) 8.7 % (1.7-9.3); NEUTROPHILS # (AUTO) 7.5 K/uL (1.8-7.7); NEUTROPHILS % (AUTO) 79.7 % (42.2-75.2); PLATELET COUNT (AUTO) 239 K/uL (140-450); RED BLOOD CELL COUNT(AUTO) 3.19 MIL/uL (4.20-6.10); RED CELL DISTRIBUTION WIDTH 15.7 % (11.6-13.7); WHITE BLOOD COUNT (AUTO) 9.5 K/uL (4.8-10.8)
[2016-09-07 06:39] LABS: ANION GAP 17.1 (8-16); CALCIUM 8.7 mg/dL (8.5-10.1); CARBON DIOXIDE 27.4 mmol/L (21-32)
[2016-09-07 06:45] LABS: MAGNESIUM 2.3 mg/dL (1.8-2.4)
--- NOTE | 2016-09-07 07:39 | NUR ---
ENDORSED TO THE NEXT RN FOR CONTINUITY OF CARE. A/O X 4. ROM X 4. PT. STANDING BY THE DOOR AT THIS TIME WAITING FOR BREAKFAST.
--- NOTE | 2016-09-07 07:40 | NUR ---
RECEIVED REPORTS FROM [facility]. AAOX 4, IV LT FA, PATENT, INTACT AND FLUSHING WELL, DIALYSIS ACCESS RIGHT UPPER ARM NOTED, BRUIT AND THRILL PRESENT, PATIENT DENIES PAIN, NO S/S OF RESPIRATORY DISTRESS OR DISCOMFORT NOTED, DRESSING TO LEFT FOOT DRY AND INTACT, DISCUSSED PLAN OF CARE WITH PT, PT VERBALIZED UNDERSTANDING, CALL LIGHT WITHIN REACH, SAFETY MEASURE ENSURED, WILL CONTINUE TO MONITOR.
[2016-09-07 08:00] VITALS: BP 165/88
--- NOTE | 2016-09-07 08:00 | NUR ---
PT RECEIVING DIALYSIS AT BEDSIDE.
[2016-09-07 08:32] LABS: POTASSIUM 6.5 mmol/L (3.5-5.1)
[2016-09-07 08:33] LABS: CREATININE 10.1 mg/dL (0.6-1.3)
[2016-09-07] MEDS: amLODIPine 5 MG TAB PO SCH (09:27)
[2016-09-07] MEDS: cloNIDine 0.1 MG TAB PO SCH ×2 (09:27→13:00)
[2016-09-07] MEDS: CARVEDILOL 6.25 MG TAB PO SCH (09:28)
[2016-09-07] MEDS: ASPIRIN 81 MG TAB.CHEW PO SCH (09:28)
[2016-09-07] MEDS: ATORVASTATIN 80 MG TAB PO SCH (09:28)
[2016-09-07] MEDS: SEVELAMER CARBONATE 800 MG TAB PO SCH ×2 (09:28→11:14)
[2016-09-07] MEDS: MUPIROCIN 2% OINT 22 GM TUBE TP SCH (09:29)
[2016-09-07] MEDS: CHLORHEXADINE GLUC 2% CLOTH TP SCH (09:29)
[2016-09-07 09:36] LABS: PHOSPHORUS 9.7 mg/dL (2.5-4.9)
--- NOTE | 2016-09-07 10:00 | NUR ---
PT IS STILL RECEIVING DIALYSIS AT BEDSIDE, NO S/S OF RESPIRATORY DISTRESS OR DISCOMFORT NOTED, CALL LIGHT WITHIN REACH, WILL CONTINUE TO MONITOR.
[2016-09-07] MEDS ORDERED: SEVE800T6 PO ×2 (10:40→10:43)
[2016-09-07] MEDS ORDERED: AMLO5TAB4 PO (10:40)
[2016-09-07] MEDS ORDERED: AMLO10TA PO (10:43)
[2016-09-07 12:00] VITALS: BP 170/84
--- NOTE | 2016-09-07 12:00 | NUR ---
PT RECEIVING DIALYSIS AT BEDSIDE.
--- NOTE | 2016-09-07 12:39 | NUR ---
CM NOTE SPOKE WITH PATIENT BEDSIDE. PATIENT SAID HE LIVES WITH FAMILY AT HOME AND WANTS TO GO BACK HOME WHEN DISCHARGED AND HIS DAUGHTER JAMIE SANCHEZ CAN PICK HER UP WHEN DISCHARGED. PER PATIENT, HE GETS HIS DIALYSIS AT [facility] ON MON, , AND SAT AT 5PM AND THAT PATIENT CARE TRANSPORTATION BRINGS HIM TO DIALYSIS AND BACK HOME.
--- NOTE | 2016-09-07 13:00 | NUR ---
PT ALERT AND ORIENTED X4, ENGLISH SPEAKING. NO SIGNS OF ACUTE DISTRESS. JUST FINISHED HD AND REPORTED BY HD NURSE WAS ABLE TO OBTAIN 3L OUTPUT. SKIN IS WARM AND DRY. DRESSING CHANGED ON LEFT TOE AMPUTATION, KEPT CLEAN DRY AND INTACT. NO BLEEDING OR DISCHARGE NOTED. NO EPISODES OF ANY BOWEL OR BLADDER DISCOMFORT. DENIES OF ANY PAIN OR DISCOMFORT, ALL NEEDS ATTENDED SAFETY PRECAUTIONS MAINTAINED. MAY D/C HOME TODAY ORDERED.
--- NOTE | 2016-09-07 13:00 | NUR ---
PT ENDORSED TO [facility]. FOR CONTINUITY OF CARE, PT STABLE AT THIS TIME.
--- NOTE | 2016-09-07 13:05 | NUR ---
WOUND CARE SUPPLIES GIVEN, EDUCATED ON WOUND CARE ON LEFT TOE. PT ABLE TO VERBALIZE UNDERSTANDING.
--- NOTE | 2016-09-07 13:10 | NUR ---
PT VERBALIZED FAMILY TO PICK HIM UP WITHIN 30 MINUTES. IV WRIST BANDS AND TELE LEADS REMOVED. EDUCATED TO FOLLOW UP WITH PCP WITHIN 1 WEEK. PT ABLE TO VERBALIZE UNDERSTANDING. CONTINUE CURRENT HOME MEDS ORDERED. PT TO CALL IF FAMILY IS ON THE UNIT FOR PICKUP.
[2016-09-07] MEDS: GAUZE TP SCH (13:16)
--- NOTE | 2016-09-07 14:00 | NUR ---
PT PICKED UP BY FAMILY. WHEELED TO FRONT LOBBY WITH PERSONAL BELONGINGS. TO GO HOME WITH PRIVATE AUTO.
== END 2016-09-07 14:00 | disposition home or self-care (01) | DRG 199 ==
LOC: MED 06:26 → MTU 07:59
PROVIDERS: ADMIT Preventive Medicine Preventive Medicine/Occupational Environmental Medicine; ATTEND Preventive Medicine Preventive Medicine/Occupational Environmental Medicine
PROC: 5A1D60Z (ICD-10-PCS; principal; 2016-09-03)
DX: I16.0 Hypertensive urgency (principal); I50.23 Acute on chronic systolic (congestive) heart failure; N18.6 End stage renal disease; E11.21 Type 2 diabetes mellitus with diabetic nephropathy; I13.2 Hypertensive heart and chronic kidney disease with heart failure and with stage 5 chronic kidney disease, or end stage renal disease; E11.51 Type 2 diabetes mellitus with diabetic peripheral angiopathy without gangrene; E11.22 Type 2 diabetes mellitus with diabetic chronic kidney disease; E11.65 Type 2 diabetes mellitus with hyperglycemia; E87.1 Hypo-osmolality and hyponatremia; L97.529 Non-pressure chronic ulcer of other part of left foot with unspecified severity; D63.1 Anemia in chronic kidney disease; E78.5 Hyperlipidemia, unspecified; B19.20 Unspecified viral hepatitis C without hepatic coma; E11.621 Type 2 diabetes mellitus with foot ulcer; E83.39 Other disorders of phosphorus metabolism; E87.5 Hyperkalemia; I25.2 Old myocardial infarction; Z99.2 Dependence on renal dialysis; Z95.0 Presence of cardiac pacemaker; Z89.422 Acquired absence of other left toe(s); Z89.421 Acquired absence of other right toe(s); Z22.322 Carrier or suspected carrier of Methicillin resistant Staphylococcus aureus; Z79.4 Long term (current) use of insulin; Z79.899 Other long term (current) drug therapy; Z90.49 Acquired absence of other specified parts of digestive tract; Z86.19 Personal history of other infectious and parasitic diseases; Z82.49 Family history of ischemic heart disease and other diseases of the circulatory system
CPT/HCPCS: 36415; 71010; 80048; 80053; 82550; 82553; 82948; 83735; 83880; 84100; 84484; 85025; 85610; 85730; 87081; 90935; 93005; 94640; 99285; J1815; J2060; J2270; J7030; J7613; J7644; Q0092

== ENCOUNTER 2016-10-18 14:35 | Inpatient (IN) | payer MEDICAID ==
[~2016-10-18] VITALS: Ht 175.3 cm; Wt 78.5 kg
[~2016-10-18 14:35] MED LIST changes: +AMLO10TA PO
--- NOTE | 2016-10-18 14:50 | NUR ---
Patient BIBA to ER bed 4 at this time.
[2016-10-18 14:53] VITALS: BP 162/91
[2016-10-18] MEDS ORDERED: ONDANSETRON 4 MG/2 ML VIAL IVP STA ×2 (15:00→18:10)
--- NOTE | 2016-10-18 15:00 | NUR ---
PT BETITOA FROM SURGERY CENTER FOR EVALUATION OF ALTERED MENTAL STATUS. PER MEDIC, PT WAS BEING PREPARED FOR ANGIOGRAM AND AFTER ADMINISTRATION OF 0.5MCG FENTANYL AND 1 MG VERSED, PT BECAME ALTERED. NARCAN ADMINISTERED, PT BECAME ALERT. HX DM, ESRD ON DIALYSIS 3X WEEKLY, HTN.; PT HAS NAUSEA AND VOMITING, NO DIAHRRHEA; SKIN IS PINK/WARM/DRY; AAOX4 WITH EVEN AND UNSTEADY GAIT, NEEDS CANE TO WALK; LUNG SOUNDS DIMINISHED; HR EVEN AND REGULAR; PT DENIES ANY FEVER, CP, SOB AT THIS TIME; PATIENT STATES PAIN OF 10/10 AT FEMORAL SITE; VSS; PATIENT POSITIONED FOR COMFORT; HOB ELEVATED; BED DOWN. ER MD MADE AWARE OF PT STATUS.
[2016-10-18] MEDS ORDERED: ONDANSETRON 4 MG/2 ML VIAL ONE ×2 (15:17→18:19)
--- NOTE | 2016-10-18 15:30 | NUR ---
XRAY AT BEDSIDE
--- NOTE | 2016-10-18 15:58 | NUR ---
ER MD DR ROE AT BEDSIDE
[2016-10-18] MEDS ORDERED: DICYCLOMINE HCL LIQUID 20 MG, ALUMINUM HYD/MAG/SIMETHICONE 30 ML, LIDOCAINE VISCOUS 2% ... PO ONE ×3 (16:05)
[2016-10-18 16:06] LABS: BASOPHILS # (AUTO) 0.1 K/uL (0.00-0.22); EOSINOPHILS # (AUTO) 0.1 K/uL (0-0.4); EOSINOPHILS % (AUTO) 1.2 % (0.0-4.0); HEMATOCRIT 33.1 % (36-52); HEMOGLOBIN 10.6 g/dL (12.0-18.0); LYMPHOCYTES # (AUTO) 0.5 K/uL (2.0-11.5); LYMPHOCYTES % (AUTO) 8.3 % (20.5-51.1); MEAN CORPUSCULAR HEMOGLOBIN 31 pg (27-31); MEAN CORPUSCULAR HGB CONC 32 g/dL (33-37); MEAN CORPUSCULAR VOLUME 98 fL (80-94); MONOCYTES # (AUTO) 0.6 K/uL (0.8-1.0); MONOCYTES % (AUTO) 8.6 % (1.7-9.3); NEUTROPHILS # (AUTO) 5.2 K/uL (1.8-7.7); NEUTROPHILS % (AUTO) 80.9 % (42.2-75.2); PLATELET COUNT (AUTO) 257 K/uL (140-450); RED CELL DISTRIBUTION WIDTH 15.6 % (11.6-13.7); WHITE BLOOD COUNT (AUTO) 6.5 K/uL (4.8-10.8)
[2016-10-18 16:25] LABS: ALBUMIN 3.2 g/dL (3.4-5.0); ANION GAP 14.6 (8-16); CALCIUM 8.7 mg/dL (8.5-10.1); CARBON DIOXIDE 29.6 mmol/L (21-32); POTASSIUM 4.2 mmol/L (3.5-5.1); TOTAL BILIRUBIN 0.5 mg/dL (0.0-1.0); TOTAL PROTEIN, SERUM 8.3 g/dL (6.4-8.2)
[2016-10-18 16:27] LABS: INR 1.2 (0.8-1.2); PROTHROMBIN TIME 11.8 secs (10.8-13.4)
[2016-10-18 16:28] LABS: CREATININE 6.4 mg/dL (0.6-1.3)
--- NOTE | 2016-10-18 16:37 | NUR ---
PT TO X-RAY
--- NOTE | 2016-10-18 16:51 | NUR ---
RETURN FROM X-RAY
--- NOTE | 2016-10-18 17:06 | NUR ---
LEFT FEMORAL LINE REMOVED BY DENNYS RN, STYE INTACT WITH NOTCH NOTED, 4 INCH LINE, HAND PRESSURE APPLIED FOR 5 MIN AFTER REMOVING LINE, 5LB SANDBAG APPLIED IMMEDIATELY AFTER WITH 4X4 GAUZE, NO COPIOUS BLEEDING NOTED, PT TOLERATED PROCEDURE WELL, WILL CONTINUE TO MONITOR
--- NOTE | 2016-10-18 17:27 | NUR ---
NO SWELLING, NO EDEMA, NO COPIOUS BLEEDING NOTED AT FEMORAL SITE, WILL CONTINUE TO MONITOR PATIENT
--- NOTE | 2016-10-18 18:18 | NUR ---
DR. ROE TO BEDSIDE, SPOKE WITH PT AND DAUGHTER. PLAN IS TO ADMIT PT FOR OBSERVATION. PT'S SPO2 REMAINS LOW 80'S IN ROOM AIR---DAUGHTER ADMITS PT DOES NOT USE O2 AT HOME. NO INFILTRATES READ ON CXR. PT ORIENTED TO NAME PLACE TIME AND EVENT. AWAITS FURTHER PHARM INTERVENTIONS
[2016-10-18] MEDS ORDERED: ASPIRIN 81 MG TAB.CHEW PO ONE (18:20)
[2016-10-18] MEDS ORDERED: ALBUTEROL SULFATE/IPRATROPIU 3 ML SOL IH ONE (18:20)
[2016-10-18] MEDS ORDERED: NITROGLYCERIN 2% 1 GM PKT TP ONE (18:20)
--- NOTE | 2016-10-18 18:36 | NUR ---
93% SPO2 ON 2L NC---RT AT BEDSIDE.
[2016-10-18] MEDS ORDERED: NITROGLYCERIN 0.4 MG TAB SL ONE (18:45)
--- NOTE | 2016-10-18 19:04 | NUR ---
3 DOSES OF NTG SL COMPLETED---PT REMAINS AWAKE ALERT SPEAK WITH DAUGHTER---PT TO CT
--- NOTE | 2016-10-18 19:06 | NUR ---
PT TAKEN TO CT
--- NOTE | 2016-10-18 19:19 | NUR ---
PT RETURN FROM CT
--- NOTE | 2016-10-18 19:24 | NUR ---
REPORT GIVEN TO JAMIE GALLEGOS--TELE ROOM NOT READY
[2016-10-18] MEDS ORDERED: IBUPROFEN 600 MG TAB PO PRN (19:25)
[2016-10-18] MEDS ORDERED: LORazepam 2 MG/ML VIAL IVP PRN (19:25)
[2016-10-18] MEDS ORDERED: DEXTROSE 50% 50 ML SYR IVP PRN (19:25)
[2016-10-18] MEDS ORDERED: ONDANSETRON 4 MG/2 ML VIAL IVP PRN (19:25)
[2016-10-18] MEDS ORDERED: ACETAMINOPHEN 325 MG TAB PO PRN (19:25)
[2016-10-18] MEDS ORDERED: HYDROcodone/APAP 5/325 MG 1 TAB TAB PO PRN (19:25)
--- NOTE | 2016-10-18 19:46 | NUR ---
Patient will be admitted to care of DR ALFRED. Admited to TELE. Will go to room 118. Belongings list completed. Report to EL AYALA.
[2016-10-18 20:00] VITALS: BP 153/73
--- NOTE | 2016-10-18 20:00 | NUR ---
RECEIVED PT FROM ER VIA REVA SOTO SPEAKER AAOX4 AMBULATES WITH MANAGER ER ON TELEMETRY SR, HL ON LEFT AC PATENT , RT ARM WITH AV SHUNT DIALYSIS, BILATERAL FEET WITH TOES AMPUTEE, LEFT FOOT WITH DRY WOUND INITIAL ASSESSMENT DONE
--- NOTE | 2016-10-18 21:30 | NUR ---
BLOOD SUGAR TEST 117 PT EATING HIS HS SNACK WELL, ON TELEMETRY SR
[2016-10-18] MEDS: BLOOD GLUCOSE MONITORING 1 DEV DEV FS SCH (21:58)
[2016-10-18] MEDS: CARVEDILOL 6.25 MG TAB PO SCH (21:59)
[2016-10-19] VITALS: BP 148/76
[2016-10-19] MEDS: HYDROcodone/APAP 5/325 MG 1 TAB TAB PO PRN ×3 (00:22→12:52)
--- NOTE | 2016-10-19 01:25 | NUR ---
AFTER PAIN MEDIC GIVENPT SLEEP WELL NOT DISTRESS NOTED ON TELMETRY SR BOTN FEET ON PILLOW
[2016-10-19 04:00] VITALS: BP 136/68
--- NOTE | 2016-10-19 04:00 | NUR ---
HERB WAGNER CHANGED ON TELEMETRY SR
[2016-10-19 06:16] LABS: CALCIUM 8.3 mg/dL (8.5-10.1); CARBON DIOXIDE 27.6 mmol/L (21-32); POTASSIUM 4.6 mmol/L (3.5-5.1)
[2016-10-19 06:18] LABS: CREATININE 7.9 mg/dL (0.6-1.3); HEMATOCRIT 33.2 % (36-52); HEMOGLOBIN 10.9 g/dL (12.0-18.0); MEAN CORPUSCULAR HEMOGLOBIN 32 pg (27-31); MEAN CORPUSCULAR HGB CONC 33 g/dL (33-37); MEAN CORPUSCULAR VOLUME 98 fL (80-94); PLATELET COUNT (AUTO) 237 K/uL (140-450); RED BLOOD CELL COUNT(AUTO) 3.39 MIL/uL (4.20-6.10); WHITE BLOOD COUNT (AUTO) 20.7 K/uL (4.8-10.8)
[2016-10-19 06:24] LABS: MAGNESIUM 1.9 mg/dL (1.8-2.4); PHOSPHORUS 7.1 mg/dL (2.5-4.9)
[2016-10-19] MEDS: BLOOD GLUCOSE MONITORING 1 DEV DEV FS SCH ×4 (06:46→20:54)
--- NOTE | 2016-10-19 06:47 | NUR ---
BLOOD SUGAR TEST 122, DR ALFRED WAS REPORTED CRITICALVALUES CREATININE 7.9, PT HAS A CONSULT DR MARTIN
--- NOTE | 2016-10-19 07:10 | NUR ---
RECEIVED PT REPORT AT BEDSIDE FROM NIGHT NURSE. PT IS AAOX4 AND SHOWS NO S/S OF DISTRESS ON ROOM AIR. PT SKIN IS INTACT. PT HAS NOTED IV ON THE R AC SALINE CED. PT ALSO HAS A RIGHT UPPER ARM AV SHUNT USED FOR DIALYSIS. PT STATES STOMACH PAIN AND BACK ITCHINESS. WILL NOTIFY DR. PT IS ON TELE MONITORING. PT WAS EXPLAINED POC FOR TODAY. PT VERBALIZED UNDERSTANDING. PT BED IS LOWERED WITH CALL LIGHT WITHIN REACH. WILL CONTINUE TO MONITOR.
[2016-10-19 07:26] LABS: BAND % (MANUAL) 9 % (0-8); LYMPHOCYTES % (MANUAL) 2 % (20-46); MONOCYTES % (MANUAL) 2 % (5-12); NEUTROPHILS % (MANUAL) 87 (43-65); PLATELET ESTIMATE ADEQUATE
[2016-10-19 08:00] VITALS: BP 137/70
--- NOTE | 2016-10-19 08:20 | NUR ---
HD NURSE IS IN PT ROOM AND WILL BEGIN HD.
--- NOTE | 2016-10-19 08:29 | NUR ---
PATIENT HAS BEEN SCREENED AND CATEGORIZED MODERATE NUTRITION RISK. PATIENT WILL BE SEEN WITHIN 3-5 DAYS OF ADMISSION. 10/21/16-10/23/[address]
[2016-10-19] MEDS: ATORVASTATIN 80 MG TAB PO SCH (08:44)
[2016-10-19] MEDS: ASPIRIN 81 MG TAB.CHEW PO SCH (08:44)
[2016-10-19] MEDS: SEVELAMER CARBONATE 800 MG TAB PO SCH ×3 (08:45→16:58)
[2016-10-19] MEDS: amLODIPine 5 MG TAB PO SCH (08:48)
[2016-10-19] MEDS: CARVEDILOL 6.25 MG TAB PO SCH ×2 (08:48→20:51)
[2016-10-19] MEDS: cloNIDine 0.1 MG TAB PO SCH ×3 (08:48→16:57)
--- NOTE | 2016-10-19 08:55 | NUR ---
ADMINISTERED SCHEDULED MEDICATION. PT WAS NOT GIVEN BP MEDICATIONS DUE TO PT CURRENTLY RECEIVING HD. PT BP IS 127/63 HR 63 AND SHOWS NO S/S OF DISTRESS ON ROOM AIR.
[2016-10-19] MEDS ORDERED: SEVELAMER CARBONATE 800 MG TAB PO SCH (09:00)
--- NOTE | 2016-10-19 09:02 | NUR ---
PAGED DR Filemon ALFRED REGARDING PT STATING HE HAS BODY ITCHINESS.
--- NOTE | 2016-10-19 09:10 | NUR ---
RECEIVED CALL BACK FROM DR. Kobe ALFRED. ORDERED BENADRYL 15 MG PO.
--- NOTE | 2016-10-19 11:37 | NUR ---
HD IS COMPLETED. PT HAD 3 L OUTPUT BP 137/73 , HR 73 , O2 SAT 97%, AND TEMP 97.4 F. PT IS AAOX4 AND SHOWS NO S/S OF DISTRESS.
[2016-10-19 12:00] VITALS: BP 139/61
--- NOTE | 2016-10-19 12:51 | NUR ---
ADMINISTERED SCHEDULED MEDICATION. PT TOLERATED WELL. PT C/O ABD PAIN 01/31. ADMINISTERED NORCO 5/325MG PO. PT SHOWS NO S/S OF DISTRESS ON ROOM AIR. WILL CONTINUE TO MONITOR.
--- NOTE | 2016-10-19 13:30 | NUR ---
PT IS SLEEPING AND SHOWS NO S/S OF DISTRESS ON ROOM AIR. WILL CONTINUE TO MONITOR.
--- NOTE | 2016-10-19 15:45 | NUR ---
PT HAS VISITORS AT BEDSIDE AND EATING FOOD THAT WAS BROUGHT IN. PT SHOWS NO S/S OF DISTRESS RA. WILL CONTINUE TO MONITOR.
[2016-10-19 16:00] VITALS: BP 137/56
--- NOTE | 2016-10-19 16:57 | NUR ---
ADMINISTERED SCHEDULED MEDICATIONS. PT TOLERATED ACTIVITY WELL. PT DENIES PAIN AND SOB. PT SHOWS NO S/S OF DISTRESS ON ROOM AIR.
[2016-10-19] MEDS: INSULIN LISPRO SLIDING SCALE 100 UNITS/ML VIAL SUBQ PRN (17:00)
--- NOTE | 2016-10-19 18:53 | NUR ---
PT IS AAOX4 RESTING IN ROOM AND SHOWS NO S/S OF DISTRESS ON ROOM AIR. WILL ENDORSED TO NIGHT NURSE.
--- NOTE | 2016-10-19 19:15 | NUR ---
PT IS SLEEPING AND SHOWS NO S/S OF DISTRESS ON ROOM AIR. PT HAS IV ON L AC SALINE LOCKED. PT SHOWS NO S/S OF DISCOMFORT. PT REPORT WAS DONE AT BEDSIDE. PT ENDORSED IN STABLE CONDITION.
--- NOTE | 2016-10-19 19:25 | NUR ---
RECEIVED PT FROM STARR RN PT ROMANSH SPEAKER AAOX4 NOT SOB NOTED HL ON LEFT AC PATENT , RT UA WITH AV SHUNT DIALYSIS ACCESS, BILATERAL FEET TOES AMPUTEE LEFT FOOT WOUND DRY , SCAB, DENIES ANY PAIN OR DISCOMFORT. INITIAL ASSESSMENT DONE
[2016-10-19 20:00] VITALS: BP 152/74
--- NOTE | 2016-10-19 21:30 | NUR ---
BLOOD SUGAR TEST 145 NOT COVERAGE PT REPOSITIONED HS SNACK IS PROVIDER
[2016-10-20] VITALS: BP 128/68
--- NOTE | 2016-10-20 00:30 | NUR ---
AFTER MEDIC FOR ITCHING GIVEN PT SLEEP QUIET NOT DISTRESS , ON TELE SR BBB
[2016-10-20 04:00] VITALS: BP 127/71
--- NOTE | 2016-10-20 04:00 | NUR ---
PT AWAKE, LINEN CHANGED ON CLOSE MONITOING , ON TELEMETRY SR BBB
[2016-10-20] MEDS: HYDROcodone/APAP 5/325 MG 1 TAB TAB PO PRN (04:35)
--- NOTE | 2016-10-20 06:05 | NUR ---
PT REMAIN QUIET SLEEPING BLOOD SUGAR [address] SR BBB
[2016-10-20 06:20] LABS: BASOPHILS # (AUTO) 0.1 K/uL (0.00-0.22); BASOPHILS % (AUTO) 0.6 % (0.0-2.0); EOSINOPHILS # (AUTO) 0.3 K/uL (0-0.4); EOSINOPHILS % (AUTO) 2.2 % (0.0-4.0); HEMATOCRIT 33.2 % (36-52); HEMOGLOBIN 10.6 g/dL (12.0-18.0); LYMPHOCYTES # (AUTO) 0.9 K/uL (2.0-11.5); LYMPHOCYTES % (AUTO) 6.9 % (20.5-51.1); MEAN CORPUSCULAR HEMOGLOBIN 32 pg (27-31); MEAN CORPUSCULAR HGB CONC 32 g/dL (33-37); MEAN CORPUSCULAR VOLUME 99 fL (80-94); MONOCYTES % (AUTO) 8.4 % (1.7-9.3); NEUTROPHILS # (AUTO) 10.1 K/uL (1.8-7.7); PLATELET COUNT (AUTO) 231 K/uL (140-450); RED BLOOD CELL COUNT(AUTO) 3.35 MIL/uL (4.20-6.10); RED CELL DISTRIBUTION WIDTH 16.3 % (11.6-13.7); WHITE BLOOD COUNT (AUTO) 12.4 K/uL (4.8-10.8)
[2016-10-20 06:27] LABS: PHOSPHORUS 5.2 mg/dL (2.5-4.9)
[2016-10-20 06:31] LABS: ANION GAP 12.5 (8-16); CALCIUM 8.8 mg/dL (8.5-10.1); CARBON DIOXIDE 29.7 mmol/L (21-32); POTASSIUM 4.2 mmol/L (3.5-5.1)
[2016-10-20 06:35] LABS: CREATININE 7.1 mg/dL (0.7-1.3)
[2016-10-20] MEDS: BLOOD GLUCOSE MONITORING 1 DEV DEV FS SCH ×4 (07:02→22:08)
--- NOTE | 2016-10-20 07:25 | NUR ---
RECEIVED PT REPORT AT BEDSIDE FROM NIGHT NURSE. PT IS AAOX4 AND SHOWS NO S/S OF DISTRESS ON ROOM AIR. PT SKIN IS INTACT HOWEVER HE HAS A HEALED WOUND TO THE LOWER EXTREMITIES. PT BLE FEET TOES ARE AMPUTEE. PT HAS NOTED IV ON THE R AC SALINE CED. PT ALSO HAS A RIGHT UPPER ARM AV SHUNT USED FOR DIALYSIS. PT DENIES PAIN. PT IS ON TELE MONITORING. PT WAS EXPLAINED POC FOR TODAY. PT VERBALIZED UNDERSTANDING. PT BED IS LOWERED WITH CALL LIGHT WITHIN REACH. WILL CONTINUE TO MONITOR.
[2016-10-20 07:32] LABS: NEUTROPHILS % (AUTO) 81.9 % (42.2-75.2)
[2016-10-20 08:00] VITALS: BP 125/73
[2016-10-20] MEDS: CARVEDILOL 6.25 MG TAB PO SCH ×2 (09:40→22:06)
[2016-10-20] MEDS: ATORVASTATIN 80 MG TAB PO SCH (09:40)
[2016-10-20] MEDS: cloNIDine 0.1 MG TAB PO SCH ×3 (09:40→17:00)
[2016-10-20] MEDS: ASPIRIN 81 MG TAB.CHEW PO SCH (09:40)
[2016-10-20] MEDS: amLODIPine 5 MG TAB PO SCH (09:41)
[2016-10-20] MEDS: SEVELAMER CARBONATE 800 MG TAB PO SCH ×3 (09:41→18:02)
--- NOTE | 2016-10-20 09:44 | NUR ---
ADMINISTERED SCHEDULED MEDICATIONS. PT TOLERATED WELL. PT IS SITTING UP IN BED AND EATING BREAKFAST. PT SHOWS NO S/S OF DISTRESS ON ROOM AIR. PT DENIES PAIN. WILL CONTINUE TO MONITOR.
[2016-10-20] MEDS ORDERED: MUPIROCIN 2% OINT 22 GM TUBE TP SCH (10:43)
[2016-10-20] MEDS: CHLORHEXADINE GLUC 2% CLOTH TP SCH (11:00)
--- NOTE | 2016-10-20 11:15 | NUR ---
PT IS IN BED AND SHOWS NO S/S OF DISTRESS ON ROOM AIR. WILL CONTINUE TO MONITOR.
[2016-10-20 12:00] VITALS: BP 138/72
--- NOTE | 2016-10-20 12:00 | NUR ---
ADMINISTERED SCHEDULED MEDICATIONS. PT BP WAS 138/72 HR 59.
[2016-10-20] MEDS: INSULIN LISPRO SLIDING SCALE 100 UNITS/ML VIAL SUBQ PRN ×2 (12:06→23:02)
[2016-10-20] MEDS ORDERED: VANCOMYCIN PER PHARMACY MC PRN (13:35)
--- NOTE | 2016-10-20 14:15 | NUR ---
PT IS SLEEPING IN BED AND SHOWS NO S/S OF DISTRESS ON ROOM AIR. WILL CONTINUE TO MONITOR.
[2016-10-20] MEDS ORDERED: VANCOMYCIN 1GM/DEXT 5% PREMIX 200 ML IV SCH (15:00)
[2016-10-20 16:00] VITALS: BP 110/63
--- NOTE | 2016-10-20 16:30 | NUR ---
PT BP WAS 110/63 HR 56. PT IS AAOX4 AND SHOWS NO S/S OF DISTRESS ON ROOM AIR. PT DENIES PAIN AND SOB. WILL CONTINUE TO MONITOR.
--- NOTE | 2016-10-20 17:00 | NUR ---
CLONIDINE 0.2 MG PO WAS NOT GIVEN DUE TO PT LOW BLOOD PRESSURE OF 110/63 AND HR 56 TAKEN AT 1600. PT IS AAOX4 AND SHOWS NO S/S OF DISTRESS ON ROOM AIR. WILL CONTINUE TO MONITOR.
--- NOTE | 2016-10-20 17:02 | NUR ---
PT IV WAS FLUSHED WITH 10CC. PT STATED NO PAIN. IV ABX WAS ADMINISTERED. PT IV INFUSING WELL AT THIS TIME.
--- NOTE | 2016-10-20 17:50 | NUR ---
SCHEDULED MEDICATIONS WERE ADMINISTERED BY MAINOR GALLEGOS. PT WAS NOT GIVEN CLONIDINE 0.2 MG PO. BP WAS REASSESSED AT 129/72 HR 52. WILL CONTINUE TO MONITOR.
--- NOTE | 2016-10-20 18:20 | NUR ---
PT WAS FOUND SLEEPING WITH IV PUMP BEEPING. PT IV ABX IS NOT INFUSING. IV ON THE L AC WAS FLUSHED AND PT STATED HE FELT PAIN. NEW IV WILL HAVE TO DONE. WILL ENDORSED TO THE NIGHT NURSE.
--- NOTE | 2016-10-20 19:25 | NUR ---
PT REPORT WAS GIVEN AT BEDSIDE TO NIGHT NURSE. PT IS AAOX4 AND SHOWS NO S/S OF DISTRESS ON ROOM AIR. PT IV IS DISCONNECTED AND WILL BE ENDORSED TO NIGHT NURSE TO DISCONTINUE IV ON THE L AC AND INSERT NEW IV TO ADMINISTER ABX. PT WAS ENDORSED IN STABLE CONDITION. WILL CONTINUE TO MONITOR.
[2016-10-20 20:00] VITALS: BP 133/83
--- NOTE | 2016-10-20 21:20 | NUR ---
DR. GARZA CAME AND SEEN PT. NO NEW ORDER MADE.
--- NOTE | 2016-10-20 22:58 | NUR ---
DR. ALFRED WAS PAGED EARLIER . CALLED BACK. MADE AWARE THAT PT NEEDS SLEEPING PILL. WITH ORDER MADE.
[2016-10-20] MEDS: traZODone 50 MG TAB PO PRN (23:27)
[2016-10-21] VITALS (7 sets, daily range): BP systolic 126–163; BP diastolic 69–95
--- NOTE | 2016-10-21 00:30 | NUR ---
PT IS AWAKE. VITAL SIGNS DONE . NO C/O ANY DISCOMFORT NOTED.
[2016-10-21] MEDS: HYDROcodone/APAP 5/325 MG 1 TAB TAB PO PRN ×3 (01:46→22:07)
--- NOTE | 2016-10-21 02:46 | NUR ---
ASLEEP. NO S/S OF PAIN NOTED AFTER C/O ABDOMINAL PAIN @0146. WILL CONTINUE TO MONITOR.
--- NOTE | 2016-10-21 05:00 | NUR ---
LT FOOT AMPUTATED TOES ,CLEANSED WITH NS ,PAT DRY THEN TRIED TO GET SPECIMEN FOR AEROBIC AND ANAEROBIC CULTURE. WILL SEND TO LAB.
[2016-10-21] MEDS: BLOOD GLUCOSE MONITORING 1 DEV DEV FS SCH ×5 (06:13→20:20)
[2016-10-21] MEDS: INSULIN LISPRO SLIDING SCALE 100 UNITS/ML VIAL SUBQ PRN ×3 (06:14→22:11)
--- NOTE | 2016-10-21 06:14 | NUR ---
BLOOD SUGAR WAS CHECKED THIS AM RESULT 159. INSULIN COVERAGE GIVEN SUBQ HUMALOG 2 UNITS.
[2016-10-21 06:28] LABS: HEMATOCRIT 31.8 % (36-52); HEMOGLOBIN 10.3 g/dL (12.0-18.0); MEAN CORPUSCULAR HEMOGLOBIN 32 pg (27-31); MEAN CORPUSCULAR HGB CONC 32 g/dL (33-37); MEAN CORPUSCULAR VOLUME 99 fL (80-94); PLATELET COUNT (AUTO) 237 K/uL (140-450); RED BLOOD CELL COUNT(AUTO) 3.21 MIL/uL (4.20-6.10); RED CELL DISTRIBUTION WIDTH 16.3 % (11.6-13.7); WHITE BLOOD COUNT (AUTO) 9.9 K/uL (4.8-10.8)
[2016-10-21 06:46] LABS: CALCIUM 8.6 mg/dL (8.5-10.1); CARBON DIOXIDE 27.4 mmol/L (21-32); POTASSIUM 5.4 mmol/L (3.5-5.1)
[2016-10-21 07:02] LABS: MAGNESIUM 2.4 mg/dL (1.8-2.4); PHOSPHORUS 6.1 mg/dL (2.5-4.9)
--- NOTE | 2016-10-21 07:31 | NUR ---
ENDORSED PT IN STABLE CONDITION TO AM NURSE FOR CONTINUITY OF CARE.
--- NOTE | 2016-10-21 07:32 | NUR ---
RECEIVED PT FROM INSURANCE SPECIAL AGENT NURSE AT BEDSIDE. PT IS ALERT AWAKE AND ORIENTED. PT HAS IV ON L AC 22 G SL. PT HAS R U AV SHUNT FOR D/A. PT HAS BL TOE AMPUTATION. R FOOT COMPLETELY HEALED. L FOOT HAS REDNESS BUT NOT OPEN, NO DRAINAGE NOTED. CALL LIGHT WITHIN REACH. WILL CONTINUE TO MONITOR.
[2016-10-21 07:38] LABS: EOSINOPHILS % (MANUAL) 3 % (0-4); LYMPHOCYTES % (MANUAL) 8 % (20-46); MONOCYTES % (MANUAL) 9 % (5-12); NEUTROPHILS % (MANUAL) 80 (43-65); PLATELET ESTIMATE ADEQUATE
[2016-10-21 07:53] LABS: CREATININE 9.8 mg/dL (0.7-1.3)
[2016-10-21] MEDS: SEVELAMER CARBONATE 800 MG TAB PO SCH ×3 (08:35→16:20)
[2016-10-21] MEDS: ASPIRIN 81 MG TAB.CHEW PO SCH (08:36)
[2016-10-21] MEDS: CARVEDILOL 6.25 MG TAB PO SCH ×2 (08:36→20:20)
[2016-10-21] MEDS: amLODIPine 5 MG TAB PO SCH (08:36)
[2016-10-21] MEDS: ATORVASTATIN 80 MG TAB PO SCH (08:36)
[2016-10-21] MEDS: cloNIDine 0.1 MG TAB PO SCH ×3 (08:37→16:20)
[2016-10-21] MEDS: MUPIROCIN 2% OINT 22 GM TUBE TP SCH (08:37)
--- NOTE | 2016-10-21 09:00 | NUR ---
DR. MARTIN ORDERED HD FOR PT TODAY.
--- NOTE | 2016-10-21 09:30 | NUR ---
PT MADE AWARE THAT HE IS GOING TO HAVE HD TODAY. PT VERBALIZED UNDERSTANDING.
[2016-10-21] MEDS: CHLORHEXADINE GLUC 2% CLOTH TP SCH (10:55)
--- NOTE | 2016-10-21 11:30 | NUR ---
PT REQUESTED PAIN MED. ADMINISTERED. TOLERATED WELL. CALL LIGHT WITHIN REACH. WILL CONTINUE TO MONITOR.
--- NOTE | 2016-10-21 12:36 | NUR ---
WILL HOLD CLONIDINE DUE TO HD.
--- NOTE | 2016-10-21 15:30 | NUR ---
HD NURSE TOOK 3 L OF FLUID. PT IN STABLE CONDITION. VS WNL. CALL LIGHT WITHIN REACH. WILL CONTINUE TO MONITOR.
--- NOTE | 2016-10-21 17:50 | NUR ---
BP AND PULSE WITHIN NL. DAUGHTER AT BEDSIDE. NO COMPLAINTS. CALL LIGHT WITHIN REACH. WILL CONTINUE TO MONITOR.
--- NOTE | 2016-10-21 19:30 | NUR ---
PT IN STABLE CONDITION. ENDORSED TO SATELLITE TV INSTALLER AT BEDSIDE.
--- NOTE | 2016-10-21 19:31 | NUR ---
RECEIVED REPORT FROM DAY RN FOR CONTINUITY OF CARE. PATIENT IS A&OX4, DISCUSSED PLAN OF CARE WITH PATIENT, VERBALIZED UNDERSTANDING. SHIFT ASSESSMENT DONE, VITAL SIGNS STABLE. NO S/S OF RESPIRATORY DISTRESS OR DISCOMFORT NOTED ON ROOM AIR. PATIENT DENIES PAIN AT THIS TIME. IV TO LT AC PATENT AND FLUSHED. RT UPPER ARM DIALYSIS ACCESS. PATIENT HAS BILATERAL FOOT TOE AMPUTATIONS. SAFETY MEASURES ENFORCED, CALL LIGHT WITHIN REACH. WILL CONTINUE TO MONITOR.
--- NOTE | 2016-10-21 20:20 | NUR ---
DUE MEDICATIONS ADMINISTERED, TOLERATED WELL. BLOOD SUGAR TAKEN, 178 WILL ADMINISTER INSULIN PER MD ORDER.
--- NOTE | 2016-10-21 20:53 | NUR ---
SPOKE TO DIALYSIS NURSE REGARDING ORDER FOR DIALYSIS.
[2016-10-21] MEDS: traZODone 50 MG TAB PO PRN (22:14)
--- NOTE | 2016-10-21 22:14 | NUR ---
PATIENT C/O ABDOMINAL PAIN, MEDICATED PER MD ORDER. SAFETY MEASURES ENFORCED, CALL LIGHT WITHIN REACH.
[2016-10-22] VITALS (7 sets, daily range): BP systolic 114–150; BP diastolic 67–78
--- NOTE | 2016-10-22 00:20 | NUR ---
VITAL SIGNS STABLE, PATIENT RESTING AT THIS TIME. CALL LIGHT WITHIN REACH.
--- NOTE | 2016-10-22 02:05 | NUR ---
PATIENT ASLEEP AT THIS TIME, NO S/S OF DISTRESS OR DISCOMFORT NOTED. WILL CONTINUE TO MONITOR.
--- NOTE | 2016-10-22 04:11 | NUR ---
VITAL SIGNS STABLE. PATIENT AMBULATED TO RESTROOM, NO S/S OF DISTRESS OR DISCOMFORT NOTED. CALL LIGHT WITHIN REACH.
[2016-10-22] MEDS ORDERED: HYDROcodone/APAP 5/325 MG 1 TAB TAB ONE (04:52)
[2016-10-22] MEDS: HYDROcodone/APAP 5/325 MG 1 TAB TAB PO PRN (04:56)
--- NOTE | 2016-10-22 06:04 | NUR ---
DIALYSIS NURSE AT BEDSIDE. PATIENT AWAKE RESTING IN BED, NO S/S OF DISTRESS OR DISCOMFORT NOTED.
[2016-10-22] MEDS: BLOOD GLUCOSE MONITORING 1 DEV DEV FS SCH ×4 (06:16→20:51)
[2016-10-22 06:38] LABS: HEMATOCRIT 32.3 % (36-52); HEMOGLOBIN 10.6 g/dL (12.0-18.0); MEAN CORPUSCULAR HEMOGLOBIN 32 pg (27-31); MEAN CORPUSCULAR HGB CONC 33 g/dL (33-37); MEAN CORPUSCULAR VOLUME 98 fL (80-94); PLATELET COUNT (AUTO) 251 K/uL (140-450); RED BLOOD CELL COUNT(AUTO) 3.29 MIL/uL (4.20-6.10); RED CELL DISTRIBUTION WIDTH 15.7 % (11.6-13.7); WHITE BLOOD COUNT (AUTO) 7.2 K/uL (4.8-10.8)
[2016-10-22 07:04] LABS: ANION GAP 15.2 (8-16); CALCIUM 8.5 mg/dL (8.5-10.1); CARBON DIOXIDE 26.8 mmol/L (21-32)
[2016-10-22 07:11] LABS: MAGNESIUM 2.2 mg/dL (1.8-2.4)
--- NOTE | 2016-10-22 07:19 | NUR ---
ASSUMED CONTINUITY OF CARE. NO SIGNS AND SYMPTOMS OF ACUTE DISTRESS NOTED. INITIAL ASSESSMENT DONE. PT. ON HD AT THIS TIME. KEEP COMFORTABLE ON BED. EXPLAINED DIAGNOSIS, PLAN OF CARE, PAIN MANAGEMENT TEACHING, CONTACT ISOLATION PRECAUTION, USE OF CALL LIGHT/BED/TV/BATHROOM. VERBALIZED UNDERSTANDING. FALL PRECAUTION APPLIED. CALL LIGHT WITHIN REACH.
--- NOTE | 2016-10-22 07:20 | NUR ---
ENDORSED PATIENT TO DAY RN FOR CONTINUITY OF CARE, PATIENT IS IN STABLE CONDITION.
[2016-10-22 07:22] LABS: CREATININE 7.5 mg/dL (0.7-1.3)
[2016-10-22 07:46] LABS: BAND % (MANUAL) 2 % (0-8); EOSINOPHILS % (MANUAL) 2 % (0-4); LYMPHOCYTES % (MANUAL) 10 % (20-46); MONOCYTES % (MANUAL) 8 % (5-12); NEUTROPHILS % (MANUAL) 78 (43-65); PLATELET ESTIMATE ADEQUATE
--- NOTE | 2016-10-22 08:00 | NUR ---
Patient's Plan of Care was discussed and reviewed with CLIENT SERVICES ACCOUNT MANAGER: JORGE PALOMARES
[2016-10-22] MEDS: SEVELAMER CARBONATE 800 MG TAB PO SCH ×3 (08:19→16:50)
--- NOTE | 2016-10-22 09:45 | NUR ---
DR. GARZA CAME, CHECK PT. CHART AND SEEN PT..
--- NOTE | 2016-10-22 09:50 | NUR ---
HD NURSE -YASMIN REPORTED THAT HD OUTPUT WAS 3.5 LITER. PT. RESTING ON BED COMFORTABLY. NO ACUTE DISTRESS NOTED. INFORMED CHARGE NURSE OF HD OUTPUT 3.5 LITER.
[2016-10-22] MEDS: cloNIDine 0.1 MG TAB PO SCH ×3 (09:59→16:51)
[2016-10-22] MEDS: amLODIPine 5 MG TAB PO SCH (09:59)
[2016-10-22] MEDS: ASPIRIN 81 MG TAB.CHEW PO SCH (09:59)
[2016-10-22] MEDS: CARVEDILOL 6.25 MG TAB PO SCH ×2 (10:00→20:56)
[2016-10-22] MEDS: ATORVASTATIN 80 MG TAB PO SCH (10:00)
[2016-10-22] MEDS: MUPIROCIN 2% OINT 22 GM TUBE TP SCH (10:00)
--- NOTE | 2016-10-22 11:18 | NUR ---
Social Service Note: I faxed MD order for Vancomycin to [facility] ([facility] , fax .
[2016-10-22] MEDS: CHLORHEXADINE GLUC 2% CLOTH TP SCH (11:42)
--- NOTE | 2016-10-22 11:44 | NUR ---
10/22/16 RD INITIAL ASSESSMENT COMPLETED PLEASE REFER TO NUTRITION ASSESSMENT UNDER CARE ACTIVITY FOR ESTIMATED NUTRITIONAL NEEDS. RD RECOMMENDATIONS: 1. PER MD DISCRETION, CONSIDER ADDING NEPRO (1 BOTTLE) TID WITH MEALS TO HELP BETTER MEET EST NEEDS. 2. PER MD DISCRETION, CONSIDER ADDING RENAL MULTI-VITAMIN D/T ESRD ON HD. 3. RD WILL F/U 3-5 DAYS; MODERATE RISK. ASHLEE ARCE, , RDN
[2016-10-22] MEDS ORDERED: VANCOMYCIN 1GM/DEXT 5% PREMIX 200 ML IV SCH (11:50)
--- NOTE | 2016-10-22 13:47 | NUR ---
Social Service Note: I was informed by charge nurse Lagos, pic line will be ordered today. Per Freddy from [facility] ([facility]) , fax , they will be able to deliver Vancomycin to patient's home and also provide nursing staff. Per Freddy, he is going to contact charge nurse Lagos for updates regarding pic line and discharge date/time. I provided Freddy with nurses' station phone number. Addendum: 10/23/16 at 1047 by Jumana Madsen SS Late entry for 10/22/16: Per charge nurse Yolis MD would like patient to receive Vanco at dialysis unit, therefore does not need home infusion. I called and spoke with Freddy from [facility] and cancelled referral.
--- NOTE | 2016-10-22 14:14 | NUR ---
DR. PHILLIPS CAME, INFORMED IF PT. CAN BE D/C TODAY 10/22/16. PER DR. PHILLIPS PT. CAN BE D/C TOMORROW 10/23/16. INFORMED CHARGE NURSE STEVEN CORRAL.
--- NOTE | 2016-10-22 14:40 | NUR ---
PAGED DR. MARTIN AND SPOKE TO HUONG REGARDING CONTINUATION OF VANCOMYCIN IV DURING D/C 10/23/16. LEFT CALLED BACK NUMBER AND MESSAGE.
--- NOTE | 2016-10-22 16:05 | NUR ---
PAGED DR. AMRTIN AND SPOKE TO YANELIS REGARDING CONTINUATION OF VANCOMYCIN IV DURING PT. D/C 10/23/16. LEFT CALL BACK NUMBER AND MESSAGE. INFORMED CHARGE NURSE STEVEN CORRAL.
[2016-10-22] MEDS: INSULIN LISPRO SLIDING SCALE 100 UNITS/ML VIAL SUBQ PRN ×2 (16:52→20:56)
--- NOTE | 2016-10-22 17:00 | NUR ---
DR. MARTIN CALLED BACK, INFORMED THAT RADHA KHAN WANTED HIM TO ARRANGE VANCOMYCIN [address] GARZA WANTS THE PT. TO CONTINUE IF PT. D/C HOME 10/23/16. DR. MARTIN STATED HE WILL TAKE CARE OF IT. INFORMED CHARGE NURSE STEVEN CORRAL.
--- NOTE | 2016-10-22 19:22 | NUR ---
REPORT GIVEN TO MALCOLM CORRAL. IN STABLE CONDITION.
--- NOTE | 2016-10-22 20:00 | NUR ---
ASSUMED CARE, RECEIVED AWAKE, ALERT, ORIENTED. AFEBRILE, NOT IN ACUTE DISTRESS. DENIES ANY PAIN OR DISCOMFORT. WITH HEPLOCK TO THE LEFT FOREARM #22 INTACT. SAO2=97% ON ROOM AIR. SINUS RHYTHM WITH BBB @ 60/MIN.ON THE MONITOR. ON CONTACT ISOLATION FOR MRSA NARES/WOUND. VS STABLE, WILL CONTINUE TO MONITOR. NEEDS ATTENDED.
--- NOTE | 2016-10-22 20:56 | NUR ---
2 UNITS OF HUMALOG SQ GIVEN FOR ZC=789 PER INSULIN SLIDING SCALE. DUE MEDICATION ALSO GIVEN.
[2016-10-23] VITALS: BP 135/70
--- NOTE | 2016-10-23 | NUR ---
ASLEEP, NOT IN ANY KIND OF DISTRESS. NO PAIN OR DISCOMFORT NOTED. SIDE RAILS UP, CALL LIGHT WITHIN REACH. KEPT WARM AND COMFORTABLE. VS REMAIN STABLE. WILL CONTINUE TO MONITOR.
[2016-10-23 04:00] VITALS: BP 123/71
[2016-10-23 06:41] LABS: ANION GAP 16.2 (8-16); CARBON DIOXIDE 28.4 mmol/L (21-32); POTASSIUM 4.6 mmol/L (3.5-5.1)
[2016-10-23] MEDS: BLOOD GLUCOSE MONITORING 1 DEV DEV FS SCH ×2 (06:49→12:04)
--- NOTE | 2016-10-23 06:49 | NUR ---
[id number]. NO INSULIN COVERAGE NEEDED.
--- NOTE | 2016-10-23 06:50 | NUR ---
ENDORSED CARE TO SHREYAS DIAS. Addendum: 10/23/16 at 0739 by Agency Margaret GALLEGOS RN WRONG ENTRY
--- NOTE | 2016-10-23 06:50 | NUR ---
LAB.CALLED RE: CREATININE=6.7. PT. IS ON HEMODIALYSIS AND VALUE IS TRENDING DOWN.
[2016-10-23 06:55] LABS: CREATININE 6.7 mg/dL (0.7-1.3)
[2016-10-23 07:09] LABS: BASOPHILS # (AUTO) 0.1 K/uL (0.00-0.22); BASOPHILS % (AUTO) 1.9 % (0.0-2.0); EOSINOPHILS # (AUTO) 0.2 K/uL (0-0.4); EOSINOPHILS % (AUTO) 2.6 % (0.0-4.0); HEMATOCRIT 37.4 % (36-52); HEMOGLOBIN 12.1 g/dL (12.0-18.0); LYMPHOCYTES # (AUTO) 0.9 K/uL (2.0-11.5); LYMPHOCYTES % (AUTO) 13.2 % (20.5-51.1); MEAN CORPUSCULAR HEMOGLOBIN 32 pg (27-31); MEAN CORPUSCULAR HGB CONC 32 g/dL (33-37); MEAN CORPUSCULAR VOLUME 98 fL (80-94); MONOCYTES # (AUTO) 0.8 K/uL (0.8-1.0); MONOCYTES % (AUTO) 11.7 % (1.7-9.3); NEUTROPHILS # (AUTO) 5.1 K/uL (1.8-7.7); NEUTROPHILS % (AUTO) 70.6 % (42.2-75.2); PLATELET COUNT (AUTO) 260 K/uL (140-450); RED BLOOD CELL COUNT(AUTO) 3.84 MIL/uL (4.20-6.10); RED CELL DISTRIBUTION WIDTH 16.5 % (11.6-13.7); WHITE BLOOD COUNT (AUTO) 7.1 K/uL (4.8-10.8)
--- NOTE | 2016-10-23 07:15 | NUR ---
ENDORSED CARE TO SHREYAS CHAPIN
--- NOTE | 2016-10-23 07:16 | NUR ---
ASSUMED CONTINUITY OF CARE. NO SIGNS AND SYMPTOMS OF ACUTE DISTRESS NOTED. INITIAL ASSESSMENT DONE. KEEP COMFORTABLE ON BED. EXPLAINED DIAGNOSIS, PLAN OF CARE, PAIN MANAGEMENT TEACHING, SAFETY, CONTACT ISOLATION PRECAUTION, USE OF CALL LIGHT/BED/TV/BATHROOM. VERBALIZED UNDERSTANDING. CALL LIGHT WITHIN REACH.
[2016-10-23 08:00] VITALS: BP 129/77
--- NOTE | 2016-10-23 08:00 | NUR ---
Patient's Plan of Care was discussed and reviewed with PRINTED CIRCUIT BOARD DRAFTER: SHREYAS PALOMARES
[2016-10-23] MEDS: SEVELAMER CARBONATE 800 MG TAB PO SCH ×2 (08:22→11:42)
[2016-10-23] MEDS: ATORVASTATIN 80 MG TAB PO SCH (08:23)
[2016-10-23] MEDS: ASPIRIN 81 MG TAB.CHEW PO SCH (08:23)
[2016-10-23] MEDS: cloNIDine 0.1 MG TAB PO SCH ×2 (08:23→13:37)
[2016-10-23] MEDS: CARVEDILOL 6.25 MG TAB PO SCH (08:24)
[2016-10-23] MEDS: amLODIPine 5 MG TAB PO SCH (08:24)
[2016-10-23] MEDS: MUPIROCIN 2% OINT 22 GM TUBE TP SCH (08:24)
--- NOTE | 2016-10-23 10:40 | NUR ---
AMBULATES INFRONT OF ROOM. TOLERATED WELL. NO C/O PAIN.
[2016-10-23] MEDS: CHLORHEXADINE GLUC 2% CLOTH TP SCH (10:48)
[2016-10-23] MEDS: INSULIN LISPRO SLIDING SCALE 100 UNITS/ML VIAL SUBQ PRN (11:41)
[2016-10-23 11:45] VITALS: BP 116/73
--- NOTE | 2016-10-23 13:18 | NUR ---
PAGED RADHA KHAN REGARDING PT. D/C ORDER. LEFT CALL BACK NUMBER.
[2016-10-23 13:37] VITALS: BP 117/69
--- NOTE | 2016-10-23 15:25 | NUR ---
RADHA KHAN CAME, CHECK PT. CHART, AND SEEN PT..
--- NOTE | 2016-10-23 15:50 | NUR ---
EXPLAINED TO PT. AND PT. DAUGHTER -JAMIE ABOUT MD D/C ORDER, D/C INSTRUCTIONS AND TEACHING, DIAGNOSIS, DISEASE MANAGEMENT, PAIN MANAGEMENT, DM TEACHING, HOME MEDICATIONS RECONCILIATIONS, MD FOLLOW UP AND PHONE NUMBER WAS GIVEN. PT. AND PT. DAUGHTER -JAMIE VERBALIZED UNDERSTANDING.
[2016-10-23 16:00] VITALS: BP 137/76
--- NOTE | 2016-10-23 16:25 | NUR ---
D/C VIA WHEELCHAIR, ACCOMPANIED BY PT. DAUGHTER -JAMIE. AWAKE, ALERT, AND ORIENTED X4. NO C/O PAIN. NO SOB, NOTED. IN STABLE CONDITION. INFORMED CHARGE NURSE STEVEN CORRAL.
== END 2016-10-23 16:25 | disposition home or self-care (01) | DRG 349 ==
LOC: MED 14:35 → MTU 19:25
PROVIDERS: ADMIT Preventive Medicine Preventive Medicine/Occupational Environmental Medicine; ATTEND Preventive Medicine Preventive Medicine/Occupational Environmental Medicine
PROC: 5A1D60Z (ICD-10-PCS; principal; 2016-10-19)
DX: T87.44 Infection of amputation stump, left lower extremity (principal); G92 Toxic encephalopathy; I50.23 Acute on chronic systolic (congestive) heart failure; E11.22 Type 2 diabetes mellitus with diabetic chronic kidney disease; N18.6 End stage renal disease; L03.116 Cellulitis of left lower limb; E11.51 Type 2 diabetes mellitus with diabetic peripheral angiopathy without gangrene; I25.10 Atherosclerotic heart disease of native coronary artery without angina pectoris; I13.2 Hypertensive heart and chronic kidney disease with heart failure and with stage 5 chronic kidney disease, or end stage renal disease; E78.5 Hyperlipidemia, unspecified; T50.995A Adverse effect of other drugs, medicaments and biological substances, initial encounter; E87.5 Hyperkalemia; Y83.8 Other surgical procedures as the cause of abnormal reaction of the patient, or of later complication, without mention of misadventure at the time of the procedure; Z79.899 Other long term (current) drug therapy; I25.2 Old myocardial infarction; Z99.2 Dependence on renal dialysis; Z90.49 Acquired absence of other specified parts of digestive tract; Z22.322 Carrier or suspected carrier of Methicillin resistant Staphylococcus aureus; Y92.89 Other specified places as the place of occurrence of the external cause
CPT/HCPCS: 36415; 70360; 71010; 80048; 80053; 80202; 82140; 82948; 83735; 83880; 84100; 84484; 85025; 85610; 85651; 86140; 87040; 87070; 87075; 87081; 87186; 94640; 96374; 99285; J1815; J2405; J3370; J7030; J7620; Q0092; Q0163

== ENCOUNTER 2016-11-16 20:36 | Emergency (ER) | payer MEDICAID ==
[~2016-11-16] VITALS: Ht 182.9 cm; Wt 81.2 kg
[2016-11-16 21:20] VITALS: BP 121/61
--- NOTE | 2016-11-16 22:50 | NUR ---
PATIENT LEFT WITHOUT BEING SEEN BY DR. Luo. NO FURTHER CARE PROVIDED FOR PATIENT.
== END 2016-11-16 22:50 | disposition left against medical advice (07) ==
LOC: MED 20:36
DX: R03.0 Elevated blood-pressure reading, without diagnosis of hypertension (principal); Z53.21 Procedure and treatment not carried out due to patient leaving prior to being seen by health care provider
CPT/HCPCS: 82948; 99281

== ENCOUNTER 2017-04-26 12:38 | Emergency (ER) | payer MEDICAID ==
[~2017-04-26] VITALS: Ht 177.8 cm; Wt 83.9 kg
[2017-04-26 12:54] VITALS: BP 147/87
--- NOTE | 2017-04-26 13:00 | NUR ---
PATIENT AMBULATED TO ER BED 1
--- NOTE | 2017-04-26 13:07 | NUR ---
ASSUMED PATIENT CARE, CONCUR WITH TRIAGE ASSESSMENT. SEEN AND EVALUATED BY PROVIDER, MSE COMPLETED.
[2017-04-26] MEDS ORDERED: NACL 0.9% 500 ML IV ONE (13:20)
[2017-04-26] MEDS ORDERED: KETOROLAC 30 MG/ML VIAL IVP ONE (13:20)
[2017-04-26] MEDS ORDERED: ONDANSETRON 4 MG/2 ML VIAL IVP ONE (13:20)
--- NOTE | 2017-04-26 14:30 | NUR ---
DIAGNOSTIC TESTING INITIATED, AWAIT DISPO AND MEDICAL DECISION MAKING.
[2017-04-26 14:31] LABS: BASOPHILS % (AUTO) 0.4 % (0.0-2.0); EOSINOPHILS # (AUTO) 0.1 K/uL (0-0.4); EOSINOPHILS % (AUTO) 1.1 % (0.0-4.0); HEMATOCRIT 33.6 % (36-52); HEMOGLOBIN 10.9 g/dL (12.0-18.0); LYMPHOCYTES # (AUTO) 0.3 K/uL (2.0-11.5); LYMPHOCYTES % (AUTO) 3.5 % (20.5-51.1); MEAN CORPUSCULAR HEMOGLOBIN 33 pg (27-31); MEAN CORPUSCULAR HGB CONC 33 g/dL (33-37); MEAN CORPUSCULAR VOLUME 101 fL (80-94); MONOCYTES # (AUTO) 0.8 K/uL (0.8-1.0); MONOCYTES % (AUTO) 9.7 % (1.7-9.3); NEUTROPHILS # (AUTO) 7.2 K/uL (1.8-7.7); NEUTROPHILS % (AUTO) 85.3 % (42.2-75.2); PLATELET COUNT (AUTO) 193 K/uL (140-450); RED BLOOD CELL COUNT(AUTO) 3.31 MIL/uL (4.20-6.10); WHITE BLOOD COUNT (AUTO) 8.4 K/uL (4.8-10.8)
[2017-04-26 14:46] LABS: ALBUMIN 3.4 g/dL (3.4-5.0); ANION GAP 19.6 (8-16); CARBON DIOXIDE 25.5 mmol/L (21-32); POTASSIUM 5.1 mmol/L (3.5-5.1); TOTAL BILIRUBIN 0.5 mg/dL (0.0-1.0)
[2017-04-26 14:49] LABS: CREATININE 11.5 mg/dL (0.7-1.3)
--- NOTE | 2017-04-26 15:45 | NUR ---
SEEN AND RE-EVALUATED BY PROVIDER.
--- NOTE | 2017-04-26 16:17 | NUR ---
DISPO AND MEDICAL DECISION MAKING, DC HOME WITH INSTRUCTIONS AND PRESCRIPTIONS, UNDERSTOOD BY PATIENT WELL, VSWNL.
[2017-04-26 16:18] VITALS: BP 126/81
== END 2017-04-26 16:17 | disposition home or self-care (01) ==
LOC: MED 12:38
DX: J11.1 Influenza due to unidentified influenza virus with other respiratory manifestations (principal); R10.9 Unspecified abdominal pain; E11.9 Type 2 diabetes mellitus without complications; I10 Essential (primary) hypertension; Z90.49 Acquired absence of other specified parts of digestive tract; Z79.4 Long term (current) use of insulin; Z79.899 Other long term (current) drug therapy; Z79.82 Long term (current) use of aspirin
CPT/HCPCS: 36415; 80053; 83690; 85025; 87804; 96361; 96374; 96375; 99284; J1885; J2405

== ENCOUNTER 2017-06-06 11:56 | Inpatient (IN) | payer MEDICAID ==
[~2017-06-06] VITALS: Ht 182.9 cm; Wt 80.4 kg
[2017-06-06 12:01] VITALS: BP_SYST 210; BP_SYST 226; BP_DIAS 102; BP_DIAS 104
--- NOTE | 2017-06-06 12:08 | NUR ---
PT AMBULATED TO BED 11.
--- NOTE | 2017-06-06 12:10 | NUR ---
57M BIB FAMILY C/O MID-ABDOMINAL PAIN AND VOMITING S/P DIALYSIS TODAY. HX: HTN, DM, ESRD, DIALYSIS, SHUNT TO RT ARM, HYPERLIPIDEMIA.AAOX4 WITH EVEN AND STEADY GAIT; LUNGS CLEAR BL; PATIENT STATES PAIN OF 0/10 AT THIS TIME; PATIENT POSITIONED FOR COMFORT; HOB ELEVATED; BEDRAILS UP X2; BED DOWN. ER MADE AWARE OF PT STATUS. Addendum: 06/06/17 at 1509 by MED1 PT HAS WOUND L FOOT. BOTH FOOT AMPUATED.
--- NOTE | 2017-06-06 12:28 | NUR ---
BP 288/112, C/O ADB PAIN N/V; NOTIFIED DR PERKINS.
[2017-06-06] MEDS ORDERED: HYDROmorphone PFS 2 MG/ML SYR IVP ONE (13:05)
[2017-06-06] MEDS ORDERED: hydrALAZINE 20 MG/ML VIAL IVP ONE (13:05)
[2017-06-06] MEDS ORDERED: ENALAPRILAT 2.5 MG/2 ML VIAL IVP ONE (13:05)
[2017-06-06] MEDS ORDERED: ONDANSETRON 4 MG/2 ML VIAL IVP ONE (13:05)
[2017-06-06 13:53] LABS: BASOPHILS # (AUTO) 0.1 K/uL (0.00-0.22); BASOPHILS % (AUTO) 1.1 % (0.0-2.0); EOSINOPHILS # (AUTO) 0.1 K/uL (0-0.4); EOSINOPHILS % (AUTO) 1.8 % (0.0-4.0); HEMATOCRIT 33.4 % (36-52); HEMOGLOBIN 10.9 g/dL (12.0-18.0); LYMPHOCYTES # (AUTO) 0.7 K/uL (2.0-11.5); LYMPHOCYTES % (AUTO) 9.5 % (20.5-51.1); MEAN CORPUSCULAR HEMOGLOBIN 34 pg (27-31); MEAN CORPUSCULAR HGB CONC 33 g/dL (33-37); MEAN CORPUSCULAR VOLUME 103 fL (80-94); MONOCYTES # (AUTO) 0.5 K/uL (0.8-1.0); MONOCYTES % (AUTO) 7.1 % (1.7-9.3); NEUTROPHILS # (AUTO) 6.2 K/uL (1.8-7.7); NEUTROPHILS % (AUTO) 80.5 % (42.2-75.2); PLATELET COUNT (AUTO) 175 K/uL (140-450); RED BLOOD CELL COUNT(AUTO) 3.26 MIL/uL (4.20-6.10); RED CELL DISTRIBUTION WIDTH 14.3 % (11.6-13.7); WHITE BLOOD COUNT (AUTO) 7.6 K/uL (4.8-10.8)
[2017-06-06 14:08] LABS: CARBON DIOXIDE 28.8 mmol/L (21-32); POTASSIUM 3.8 mmol/L (3.5-5.1)
[2017-06-06 14:12] LABS: CREATININE 5.1 mg/dL (0.7-1.3)
[2017-06-06 14:14] LABS: ALBUMIN 3.3 g/dL (3.4-5.0); TOTAL BILIRUBIN 0.7 mg/dL (0.0-1.0)
--- NOTE | 2017-06-06 14:45 | NUR ---
DENIES PAIN , BP 136/65.Patient appears to be resting comfortably in bed. Respirations even and unlabored. WILL CONTINUE TO MONITOR.
[2017-06-06] MEDS ORDERED: DOCUSATE SODIUM 100 MG GELCAP PO PRN (14:55)
--- NOTE | 2017-06-06 15:06 | NUR ---
PT STATES CAN'T URENATE FOR [address] PADILLA. CANCEL ORDER.
[2017-06-06] MEDS ORDERED: DEXTROSE 50% 50 ML SYR IVP PRN (15:10)
[2017-06-06 16:05] LABS: CHOL/HDL RATIO 1.8 (1-4.5); FREE T4 (FREE THYROXINE) 1.23 ng/dL (0.76-1.46); MAGNESIUM 1.8 mg/dL (1.8-2.4); PHOSPHORUS 4.1 mg/dL (2.5-4.9); THYROID STIMULATING HORMONE 1.03 uIU/mL (0.34-3.74)
[2017-06-06] MEDS: ONDANSETRON 4 MG/2 ML VIAL IM/IVP PRN (16:15)
--- NOTE | 2017-06-06 16:20 | NUR ---
PATIENT BROUGHT TO THE UNIT VIA GURNEY FROM ER. RECEIVED REPORT FROM ER NURSE. PATIENT IS AAOX4, GREENLANDIC SPEAKING. NO SIGNS AND SYMPTOMS OF ACUTE DISTRESS NOTED AT THIS TIME. PATIENT IV TO THE LEFT HAND 20G, ON SALINE LOCK AT THIS TIME. HAS RIGHT ARM FISTULA FOR DIALYSIS. PATIENT HAS ALL TEN TOES AMPUTATED, AND AMBULATES WITH A CANE. LEFT FOOT HAS DRESSING ON DUE TO A POPPED BLISTER. OTHER THAN THAT SKIN IS INTACT. ORIENTED PATIENT TO ROOM, EXPLAINED THE CALL LIGHT TO HIM, AND HE VERBALIZED UNDERSTANDING. BED IN LOWEST POSITION, SIDE RAILS UP X2, CALL LIGHT PLACED WITHIN REACH. WILL CONTINUE TO MONITOR.
--- NOTE | 2017-06-06 16:27 | NUR ---
Patient will be admitted to care of DR DRIVER. Admited to TELE. Will go to room 115A. Belongings list completed. Report to EL MEJIA.
[2017-06-06] MEDS: BLOOD GLUCOSE MONITORING 1 DEV DEV FS SCH ×2 (16:30→21:13)
[2017-06-06] MEDS ORDERED: LACTOBACILLUS RHAMNOSUS GG 1 EACH CAP PO SCH (17:05)
[2017-06-06] MEDS: SEVELAMER CARBONATE 800 MG TAB PO SCH (17:19)
[2017-06-06] MEDS: CARVEDILOL 6.25 MG TAB PO SCH (17:20)
[2017-06-06] MEDS ORDERED: METOCLOPRAMIDE 10 MG TAB PO PRN (17:20)
[2017-06-06] MEDS: cloNIDine 0.1 MG TAB PO SCH (17:20)
[2017-06-06] MEDS ORDERED: traZODone 50 MG TAB PO PRN (18:05)
[2017-06-06] MEDS ORDERED: hydrOXYzine HCL 10 MG TAB PO PRN (18:05)
[2017-06-06 18:55] LABS: PROTHROMBIN TIME 11.4 secs (10.8-13.4)
[2017-06-06] MEDS: NACL 0.9% 1,000 ML IV SCH (19:30)
--- NOTE | 2017-06-06 19:37 | NUR ---
ENDORSED PATIENT TO NIGHT RN FOR CONTINUITY OF CARE. PATIENT IN STABLE CONDITION
--- NOTE | 2017-06-06 19:38 | NUR ---
RECEIVED BEDSIDE REPORT FROM DAY SHIFT NURSE PT STABLE, NO DISTRESS NOTED, ON ROOM AIR, NO SOB, IV TO L HAND 22 G RUNNING NS@ 10ML/HR, INFUSING WELL, INITIAL ASSESSMENT DONE, ALL SAFETY PRECAUTION MET, CALL LIGHT WITHIN REACH, WILL CONTINUE TO MONITOR.
[2017-06-06 20:00] VITALS: BP 146/75
[2017-06-06] MEDS ORDERED: PIPERACILLIN/TAZOBACTAM 2.25 GM VIAL IV ONE (20:30)
[2017-06-06] MEDS: PIPER/TAZO 2.25GM/D5W PREMIX 50 ML IV SCH (20:56)
[2017-06-06] MEDS: LORazepam 1 MG TAB PO PRN (20:58)
[2017-06-06] MEDS: HYDROcodone/APAP 7.5/325 MG 1 TAB PO PRN (20:59)
--- NOTE | 2017-06-06 20:59 | NUR ---
DUE MEDICATION GIVEN PT C/O OF PAIN 10/10 ON HEAD AND STOMACH, PAIN MEDICATION GIVEN, PT TOLERATED WELL, NO DISTRESS NOTED, CALL LIGHT WITHIN REACH, WILL CONTINUE TO MONITOR.
[2017-06-06] MEDS: hydrOXYzine HCL 10 MG TAB PO PRN (21:52)
--- NOTE | 2017-06-06 21:52 | NUR ---
PT C/O OF ITCHING, AND VOMITING, MEDICATION GIVEN, PT TOLERATED WELL, NO DISTRESS NOTED, CALL LIGHT WITHIN REACH, WILL CONTINUE TO MONITOR.
[2017-06-06] MEDS ORDERED: diphenhydrAMINE 50 MG CAP PO ONE (23:00)
--- NOTE | 2017-06-06 23:00 | NUR ---
PT STATED NOT HAVING ITCHINESS ANY MORE, BENADRYL NOT GIVEN, PT STABLE, NO DISTRESS NOTED, SLEEPING, CALL LIGHT WITHIN REACH, WILL CONTINUE TO MONITOR.
[2017-06-07] VITALS (7 sets, daily range): BP systolic 100–191; BP diastolic 51–90
[2017-06-07] MEDS ORDERED: MORPHINE SULFATE 2 MG/ML SYR ONE
--- NOTE | 2017-06-07 02:10 | NUR ---
CHECKED ON PT, PT SLEEPING, NO DISTRESS NOTED, CALL LIGHT WITHIN REACH, WILL CONTINUE TO MONITOR.
[2017-06-07] MEDS: PIPER/TAZO 2.25GM/D5W PREMIX 50 ML IV SCH (04:44)
[2017-06-07] MEDS: ACETAMINOPHEN 325 MG TAB PO PRN (04:49)
--- NOTE | 2017-06-07 04:49 | NUR ---
PT C/O OF HEADACHE 12/01, PAIN MEDICATION GIVEN, PT TOLERATED WELL, NO DISTRESS NOTED, WILL CONTINUE TO MONITOR.
[2017-06-07] MEDS: BLOOD GLUCOSE MONITORING 1 DEV DEV FS SCH ×4 (05:53→20:57)
[2017-06-07 06:19] LABS: T4 (THYROXINE) 7.3 ug/dL (4.5-12.0)
[2017-06-07] MEDS ORDERED: SODIUM PHOSPHATE 118 ML ENEM RC SCH (06:20)
[2017-06-07 06:41] LABS: CARBON DIOXIDE 30.1 mmol/L (21-32); POTASSIUM 4.1 mmol/L (3.5-5.1)
[2017-06-07 06:49] LABS: MAGNESIUM 1.8 mg/dL (1.8-2.4); PHOSPHORUS 5.8 mg/dL (2.5-4.9)
--- NOTE | 2017-06-07 07:08 | NUR ---
FLEET ENEMA ADMINISTERED TO PT, PT TOLERATED WELL, NO DISTRESS NOTED, CALL LIGHT WITHIN REACH.
--- NOTE | 2017-06-07 07:10 | NUR ---
ENDORSED PLAN OF CARE TO DAY SHIFT NURSE PETRA PATEL STABLE, NO DISTRESS NOTED, CALL LIGHT WITHIN REACH.
--- NOTE | 2017-06-07 07:10 | NUR ---
ASSUMED CONTINUITY OF CARE. NO SIGNS AND SYMPTOMS OF ACUTE DISTRESS NOTED. INITIAL ASSESSMENT DONE. KEEP COMFORTABLE ON BED. EXPLAINED DIAGNOSIS, PLAN OF CARE, PAIN MANAGEMENT TEACHING, CONTACT ISOLATION PRECAUTION, USE OF CALL LIGHT, BED/TV/BATHROOM. VERBALIZED UNDERSTANDING. FALL PRECAUTION APPLIED. CALL LIGHT WITHIN REACH.
[2017-06-07 07:12] LABS: CREATININE 6.7 mg/dL (0.7-1.3)
[2017-06-07] MEDS: SEVELAMER CARBONATE 800 MG TAB PO SCH ×3 (08:24→16:49)
[2017-06-07] MEDS: CARVEDILOL 6.25 MG TAB PO SCH (08:24)
--- NOTE | 2017-06-07 09:02 | NUR ---
PATIENT HAS BEEN SCREENED AND CATEGORIZED MODERATE NUTRITION RISK. PATIENT WILL BE SEEN WITHIN 3-5 DAYS OF ADMISSION. 06/08/17-06/10/[address]
--- NOTE | 2017-06-07 09:25 | NUR ---
Patient's Plan of Care was discussed and reviewed with MULE OPERATOR: JORGE PALOMARES
[2017-06-07] MEDS: cloNIDine 0.1 MG TAB PO SCH ×3 (09:38→16:50)
[2017-06-07] MEDS: ATORVASTATIN 80 MG TAB PO SCH (09:38)
[2017-06-07] MEDS: amLODIPine 5 MG TAB PO SCH (09:39)
[2017-06-07] MEDS: LACTOBACILLUS RHAMNOSUS GG 1 EACH CAP PO SCH (09:39)
[2017-06-07] MEDS: ASPIRIN 81 MG TAB.CHEW PO SCH (09:39)
[2017-06-07] MEDS ORDERED: BISACODYL 10 MG SUPP RC PRN (09:55)
[2017-06-07 09:58] LABS: HEMOGLOBIN 9.9 g/dL (12.0-18.0); RED BLOOD CELL COUNT(AUTO) 2.93 MIL/uL (4.20-6.10)
[2017-06-07 09:59] LABS: BASOPHILS # (AUTO) 0.1 K/uL (0.00-0.22); EOSINOPHILS # (AUTO) 0.1 K/uL (0-0.4); EOSINOPHILS % (AUTO) 1.6 % (0.0-4.0); HEMATOCRIT 30.2 % (36-52); LYMPHOCYTES # (AUTO) 0.9 K/uL (2.0-11.5); LYMPHOCYTES % (AUTO) 15.3 % (20.5-51.1); MEAN CORPUSCULAR HEMOGLOBIN 34 pg (27-31); MEAN CORPUSCULAR HGB CONC 33 g/dL (33-37); MEAN CORPUSCULAR VOLUME 103 fL (80-94); MONOCYTES # (AUTO) 0.7 K/uL (0.8-1.0); MONOCYTES % (AUTO) 11.5 % (1.7-9.3); NEUTROPHILS # (AUTO) 4.2 K/uL (1.8-7.7); NEUTROPHILS % (AUTO) 70.6 % (42.2-75.2); PLATELET COUNT (AUTO) 167 K/uL (140-450); RED CELL DISTRIBUTION WIDTH 14.9 % (11.6-13.7)
--- NOTE | 2017-06-07 10:01 | NUR ---
pt sleeping is left at bedside will return to instruct pt
[2017-06-07] MEDS ORDERED: CARVEDILOL 6.25 MG TAB PO SCH (10:10)
--- NOTE | 2017-06-07 10:19 | NUR ---
VERIFIED WITH DR. CARRION ORDER OF COREG 6.25 MG PO AT 1010. ALSO INFORMED LATEST VS AT 0930 -TEMP 98.2, BP 177/90, HR 119, RESP 18, O2 SAT 96% ON ROOM AIR. NO C/O PAIN. PER DR. CARRION, OK TO GIVE ANOTHER DOSE OF COREG 6.25 MG PO. INFORMED CHARGE NURSE STEVEN CORRAL.
[2017-06-07] MEDS: INSULIN LISPRO SLIDING SCALE 100 UNITS/ML VIAL SUBQ PRN ×3 (12:22→21:03)
[2017-06-07] MEDS ORDERED: LEVOFLOXACIN 500 MG/D5W PREMIX 100 ML IV SCH (13:00)
[2017-06-07] MEDS: NACL 0.9% 1,000 ML IV SCH (14:55)
--- NOTE | 2017-06-07 16:15 | NUR ---
INFORMED DR. CARRION ABOUT PT. VS AT 1600 AND SCHEDULED MEDS AT 1700.
[2017-06-07] MEDS: CARVEDILOL 12.5 MG TAB PO SCH (16:49)
[2017-06-07] MEDS: CLINDAMYCIN 300 MG in DEXTROSE 5% 50 ML IV SCH (17:39)
--- NOTE | 2017-06-07 19:15 | NUR ---
BEDSIDE REPORT GIVEN TO GEETA CORRAL. IVF INFUSING WELL. IN STABLE CONDITION.
--- NOTE | 2017-06-07 19:57 | NUR ---
RECEIVED FROM AM NURSE IN BED WITH AWAKE AND ALERT.WATCHING TV. ABLE TO VERBALIZE NEEDS WELL. NO SOB. NO PAIN COMPLAINTS AT THIS TIME. PT. S/P DEBRIDEMENT TO LEFT FOOT BY SOCIAL MEDIA CONTENT MANAGER. DRESSING INTACT AND NO BLEEDING. IVF SITE TO LEFT HAND INTACT AND NO INFILTRATION NOTED. CALL LIGHT WITH IN REACH. CARE PLANS FOR THE NIGHT DISCUSSED WITH HIM AND TO USE CALL LIGHT FOR ANY HELP HE MAY NEED OR IF IN PAIN. A/O X4. ROM X 4. CLEAR SPEECH. FOR HEMODIALYSIS TOMORROW . WILL ENDORSE TO AM RN RE : PT.S SCHEDULE FOR HD.
[2017-06-07] MEDS ORDERED: ZOLPIDEM 5 MG TAB PO SCH (20:55)
[2017-06-07] MEDS: HYDROcodone/APAP 7.5/325 MG 1 TAB PO PRN (20:56)
--- NOTE | 2017-06-07 23:29 | NUR ---
PT. STILL AWAKE AT THIS TIME WATCHING TV. A/O X 4. ROM X 4. ABLE TO WALK BY HIMSELF INDEPENDENTLY. MIDNIGHT SNACK PROVIDED. CALL LIGHT WITH IN REACH.
[2017-06-08] MEDS: CLINDAMYCIN 300 MG in DEXTROSE 5% 50 ML IV SCH ×4 (00:29→18:25)
[2017-06-08] MEDS: ACETAMINOPHEN 325 MG TAB PO PRN (00:34)
[2017-06-08] MEDS: hydrOXYzine HCL 10 MG TAB PO PRN ×3 (00:35→18:30)
--- NOTE | 2017-06-08 00:36 | NUR ---
PT. COMPLAINED OF HEADACHE. REQUESTED FOR HEADACHE MEDICATION AND SOMETHING FOR ITCHINESS. MEDICATED WITH ATARAX AND TYLENOL .
--- NOTE | 2017-06-08 04:00 | NUR ---
SLEEPING. USES CALL LIGHT FOR HELP. NO FURTHER COMPLAINTS DONE. IVF SITE INTACT AND NO INFILTRATION.
--- NOTE | 2017-06-08 06:00 | NUR ---
SLEEPING. WAKES U P WHEN TOUCHED. NO COMPLAINTS DONE. VERBALIZES SIMPLE NEEDS WELL. FOR HEMODIALYSIS TODAY .
[2017-06-08] MEDS: BLOOD GLUCOSE MONITORING 1 DEV DEV FS SCH ×4 (06:09→21:37)
[2017-06-08 06:13] LABS: BASOPHILS # (AUTO) 0.1 K/uL (0.00-0.22); BASOPHILS % (AUTO) 2.5 % (0.0-2.0); EOSINOPHILS # (AUTO) 0.1 K/uL (0-0.4); EOSINOPHILS % (AUTO) 2.2 % (0.0-4.0); HEMATOCRIT 29.6 % (36-52); HEMOGLOBIN 9.4 g/dL (12.0-18.0); LYMPHOCYTES # (AUTO) 0.9 K/uL (2.0-11.5); LYMPHOCYTES % (AUTO) 16.1 % (20.5-51.1); MEAN CORPUSCULAR HEMOGLOBIN 33 pg (27-31); MEAN CORPUSCULAR HGB CONC 32 g/dL (33-37); MEAN CORPUSCULAR VOLUME 104 fL (80-94); MONOCYTES # (AUTO) 0.8 K/uL (0.8-1.0); MONOCYTES % (AUTO) 12.9 % (1.7-9.3); NEUTROPHILS # (AUTO) 3.9 K/uL (1.8-7.7); NEUTROPHILS % (AUTO) 66.3 % (42.2-75.2); PLATELET COUNT (AUTO) 157 K/uL (140-450); RED BLOOD CELL COUNT(AUTO) 2.86 MIL/uL (4.20-6.10); RED CELL DISTRIBUTION WIDTH 14.4 % (11.6-13.7); WHITE BLOOD COUNT (AUTO) 5.8 K/uL (4.8-10.8)
[2017-06-08 06:24] VITALS: BP 110/62
[2017-06-08 06:31] LABS: ANION GAP 15.7 (8-16); CARBON DIOXIDE 29.9 mmol/L (21-32); POTASSIUM 4.6 mmol/L (3.5-5.1)
[2017-06-08 06:35] LABS: MAGNESIUM 2.1 mg/dL (1.8-2.4)
[2017-06-08 06:56] LABS: CREATININE 8.8 mg/dL (0.7-1.3)
--- NOTE | 2017-06-08 07:15 | NUR ---
ASSUMED CONTINUITY OF CARE. NO SIGNS AND SYMPTOMS OF ACUTE DISTRESS NOTICED. INITIAL ASSESSMENT DONE. KEEP COMFORTABLE ON BED. EXPLAINED DIAGNOSIS, PLAN OF CARE, PAIN MANAGEMENT TEACHING, CONTACT ISOLATION PRECAUTION, USE OF CALL LIGHT/BED/TV/BATHROOM. VERBALIZED UNDERSTANDING. FALL PRECAUTION APPLIED. CALL LIGHT WITHIN REACH.
--- NOTE | 2017-06-08 07:23 | NUR ---
PAGED DR. MARTIN AND SPOKE TO ENEIDA REGARDING PT. HD ORDER. LEFT MESSAGE AND CALL BACK NUMBER. INFORMED CHARGE NURSE STEVEN CORRAL.
--- NOTE | 2017-06-08 07:30 | NUR ---
ENDORSED TO NEXT RN FOR CONTINUITY OF CARE. SLEEPING. WAKES UP EASILY WHEN TOUCHED OR CALLED BY NAME.
[2017-06-08] MEDS ORDERED: diphenhydrAMINE 50 MG/ML VIAL ONE (07:56)
[2017-06-08 08:00] VITALS: BP 152/76
[2017-06-08] MEDS: CARVEDILOL 12.5 MG TAB PO SCH ×2 (08:00→17:00)
--- NOTE | 2017-06-08 08:00 | NUR ---
Patient's Plan of Care was discussed and reviewed with SILK WINDING MACHINE OPERATOR: JORGE
[2017-06-08] MEDS: SEVELAMER CARBONATE 800 MG TAB PO SCH ×3 (08:42→16:39)
--- NOTE | 2017-06-08 08:55 | NUR ---
STELLA WAITE -BENJAMÍN PAGED DR. MARTIN REGARDING HD ORDER. INFORMED CHARGE NURSE STEVEN CORRAL.
[2017-06-08] MEDS: amLODIPine 5 MG TAB PO SCH (09:00)
[2017-06-08] MEDS: cloNIDine 0.1 MG TAB PO SCH ×3 (09:00→17:00)
[2017-06-08] MEDS: ASPIRIN 81 MG TAB.CHEW PO SCH (09:00)
[2017-06-08] MEDS: ATORVASTATIN 80 MG TAB PO SCH (09:07)
[2017-06-08] MEDS: LACTOBACILLUS RHAMNOSUS GG 1 EACH CAP PO SCH (09:07)
--- NOTE | 2017-06-08 09:54 | NUR ---
CHARGE NURSE STEVEN HARMON -EL CALLED DR. MARTIN AND INFORMED HIM OF PT. HD ORDER.
--- NOTE | 2017-06-08 10:00 | NUR ---
PAGED HD NURSE -CARLA BERNAL AT REGARDING DR. MARTIN REQUEST FOR PT. HD. INFORMED CHARGE NURSE STEVEN HARMON -EL.
--- NOTE | 2017-06-08 10:05 | NUR ---
CALLED HD NURSE -CARLA BERNAL AT , LEFT MESSAGE AND CALL BACK NUMBER REGARDING DR. MARTIN REQUEST FOR PT. HD.
--- NOTE | 2017-06-08 10:09 | NUR ---
HD NURSE -CARLA BERNAL CALLED BACK, INFORMED THAT DR. MARTIN REQUEST PT. HD AND HD NURSE HAVE TO CALL FOR HD ORDER. PER CARLA BERNAL, HOLD PT. ALL BP MEDS AND SHE WILL DO HD AT ICU FIRST AND WILL DO HD AT ROOM 115 AFTERWARDS. INFORMED CHARGE NURSE STEVEN HARMON -EL.
--- NOTE | 2017-06-08 10:40 | NUR ---
AMBULATES ON HALLWAY WITHOUT ASSISTANCE. PT. USED POS-OP BOOT SHOE ON LEFT FOOT. TOLERATED WELL. NO C/O PAIN.NO SOB, NOTED.
[2017-06-08] MEDS: INSULIN LISPRO SLIDING SCALE 100 UNITS/ML VIAL SUBQ PRN (11:42)
[2017-06-08 12:00] VITALS: BP 163/84
[2017-06-08] MEDS ORDERED: LEVOFLOXACIN 250 MG/D5 PREMIX 50 ML IV SCH (13:00)
--- NOTE | 2017-06-08 13:56 | NUR ---
FWW order faxed to Mariusz at &[facility] at [phone]
[2017-06-08] MEDS ORDERED: CHLORHEXADINE GLUC 2% CLOTH TP SCH (14:00)
[2017-06-08] MEDS ORDERED: MUPIROCIN 2% OINT 22 GM TUBE TP SCH (14:00)
--- NOTE | 2017-06-08 14:46 | NUR ---
CHARGE NURSE CALLED DR. MARTIN REGARDING HD ORDER, HD NURSE SPOKE TO DR. MARTIN VIA PHONE AND ASKED FOR HD ORDER.
[2017-06-08] MEDS: NACL 0.9% 1,000 ML IV SCH (14:55)
--- NOTE | 2017-06-08 15:45 | NUR ---
DR. MARTIN CAME, REVIEWED PT. CHART, AND INFORMED THAT PT. ON HD AT THIS TIME.
[2017-06-08 16:05] VITALS: BP 148/84
[2017-06-08] MEDS: HYDROcodone/APAP 7.5/325 MG 1 TAB PO PRN (16:10)
--- NOTE | 2017-06-08 18:20 | NUR ---
HD NURSE REPORTED THAT HD DONE AT THIS TIME. HD OUTPUT WAS 2.6 LITER. PT. IN STABLE CONDITION. KEEP COMFORTABLE ON BED.
--- NOTE | 2017-06-08 18:30 | NUR ---
PHYSICAL THERAPY CO-SIGN The Physical Therapy Progress Notes documented by Bed Placement Coordinator have been reviewed. Reviewed/Co-Signed by: Bettina Shah DPT Documentation Done by: Bayron Arenas UROLOGIC NURSE Patient norma tx well, progressing towards goals, cont with PT POC as norma/safe. Addendum: 06/08/17 at 1831 by Bettina Shah PT Amended: Links added.
--- NOTE | 2017-06-08 19:15 | NUR ---
BEDSIDE REPORT GIVEN TO GEETA CORRAL. IVF INFUSING WELL. IN STABLE CONDITION.
--- NOTE | 2017-06-08 19:20 | NUR ---
RECEIVED FROM AM RN IN BED AWAKE AND ALERT. DAUGHTER AT BEDSIDE. CALL LIGHT WITH IN REACH AND NO COMPLAINTS AT THIS TIME. CARE PLANS FOR THE NIGHT DISCUSSED WITH THEM.
--- NOTE | 2017-06-08 19:36 | NUR ---
PT. REQUESTING FOR ANTI NAUSEA RT FEELS LIKE VOMITING. DAUGHTER AT BEDSIDE. MEDICATED. AWAKE AND ALERT.
[2017-06-08] MEDS: ONDANSETRON 4 MG/2 ML VIAL IM/IVP PRN (19:38)
[2017-06-08 20:00] VITALS: BP 122/78
[2017-06-08] MEDS: LORazepam 1 MG TAB PO PRN (21:37)
[2017-06-09 00:05] VITALS: BP 141/91
[2017-06-09] MEDS: CLINDAMYCIN 300 MG in DEXTROSE 5% 50 ML IV SCH ×3 (00:08→12:16)
[2017-06-09] MEDS: ACETAMINOPHEN 325 MG TAB PO PRN (00:08)
--- NOTE | 2017-06-09 00:42 | NUR ---
SLEEPING AT THIS TIME. NO RESTLESSNESS NOTED. MEDICATED WITH PAIN RELIEVER FOR HEADACHE EARLIER. A/O X 4. VERBALIZES SIMPLE NEEDS WELL.
[2017-06-09] MEDS: BLOOD GLUCOSE MONITORING 1 DEV DEV FS SCH ×2 (05:45→12:16)
[2017-06-09] MEDS: ONDANSETRON 4 MG/2 ML VIAL IM/IVP PRN ×2 (05:58→09:16)
--- NOTE | 2017-06-09 06:00 | NUR ---
AWAKE AT THIS TIME AND SITTING ON THE CHAIR. COMPLAINED OF NAUSEA. PT. HOLDING ON TO HIS STOMACH. MEDICATED WITH ZOFRAN IVP REQUESTED.
--- NOTE | 2017-06-09 06:03 | NUR ---
PT. STATED HE HAS NO BM ON THIS SHIFT. PT. STARTED ON RENAL DIET YESTERDAY. ENCOURAGED TO HAVE BM. IN BED AT THIS TIME AND STATED THAT HIS STOMACH IS HURTING. ABLE TO VERBALIZE NEEDS WELL.
--- NOTE | 2017-06-09 07:10 | NUR ---
RECEIVED PATIENT REPORT AT BEDSIDE. PATIENT AWAKE, ALERT AND ORIENTED. NO S/S OF DISTRESS. PATIENT ON ROOM AIR. HD ACCESS NOTED TO THE RIGHT UPPER ARM. BRUIT AND THRILL NOTED. DRESSING NOTED TO THE LEFT FOOT. DRESSING CLEAN DRY AND INTACT. BED LOWERED WITH CALL LIGHT WITHIN REACH. WILL CONTINUE TO MONITOR
[2017-06-09 07:15] LABS: BASOPHILS # (AUTO) 0.1 K/uL (0.00-0.22); BASOPHILS % (AUTO) 1.7 % (0.0-2.0); EOSINOPHILS # (AUTO) 0.1 K/uL (0-0.4); EOSINOPHILS % (AUTO) 1.8 % (0.0-4.0); HEMATOCRIT 28.5 % (36-52); HEMOGLOBIN 9.3 g/dL (12.0-18.0); LYMPHOCYTES # (AUTO) 0.7 K/uL (2.0-11.5); LYMPHOCYTES % (AUTO) 10.5 % (20.5-51.1); MEAN CORPUSCULAR HEMOGLOBIN 33 pg (27-31); MEAN CORPUSCULAR HGB CONC 33 g/dL (33-37); MEAN CORPUSCULAR VOLUME 102 fL (80-94); MONOCYTES # (AUTO) 0.7 K/uL (0.8-1.0); NEUTROPHILS # (AUTO) 5.1 K/uL (1.8-7.7); PLATELET COUNT (AUTO) 165 K/uL (140-450); RED BLOOD CELL COUNT(AUTO) 2.79 MIL/uL (4.20-6.10); RED CELL DISTRIBUTION WIDTH 14.3 % (11.6-13.7); WHITE BLOOD COUNT (AUTO) 6.7 K/uL (4.8-10.8)
[2017-06-09 08:00] VITALS: BP 167/95
[2017-06-09] MEDS: amLODIPine 5 MG TAB PO SCH (08:46)
[2017-06-09] MEDS: ATORVASTATIN 80 MG TAB PO SCH (08:46)
[2017-06-09] MEDS: cloNIDine 0.1 MG TAB PO SCH ×2 (08:47→13:00)
[2017-06-09] MEDS: CARVEDILOL 12.5 MG TAB PO SCH (08:47)
[2017-06-09] MEDS: ASPIRIN 81 MG TAB.CHEW PO SCH (08:47)
[2017-06-09] MEDS: SEVELAMER CARBONATE 800 MG TAB PO SCH ×2 (08:48→12:20)
[2017-06-09] MEDS: LACTOBACILLUS RHAMNOSUS GG 1 EACH CAP PO SCH (08:48)
[2017-06-09] MEDS: HYDROcodone/APAP 7.5/325 MG 1 TAB PO PRN (08:48)
[2017-06-09 08:51] LABS: MAGNESIUM 1.7 mg/dL (1.8-2.4); PHOSPHORUS 5.1 mg/dL (2.5-4.9)
[2017-06-09 08:55] LABS: ANION GAP 10.7 (8-16); CARBON DIOXIDE 32.9 mmol/L (21-32); POTASSIUM 3.6 mmol/L (3.5-5.1)
[2017-06-09 09:39] LABS: CREATININE 6.9 mg/dL (0.7-1.3)
[2017-06-09] MEDS ORDERED: MAGNESIUM OXIDE 400 MG TAB PO SCH (10:00)
--- NOTE | 2017-06-09 10:00 | NUR ---
I met with Patient (Estonian speaking only) to discuss MD. Recommendations for special equipment needed at home (walker) and insurance non-coverage. (Due to Emergency Medical Only). Patient agreed wth information provided by these advertising writer and stated that he and daughter will be able to get a walker soon; mean while he has and will use his cane until he gets a walker. Patient thank me for my assistance as he was preparing for discharge.
[2017-06-09] MEDS ORDERED: BACTO TP (10:08)
[2017-06-09] MEDS ORDERED: ATA10 PO (10:08)
[2017-06-09] MEDS ORDERED: GLUC-805 FS (10:08)
[2017-06-09] MEDS ORDERED: CLIN300C2 PO (10:08)
[2017-06-09] MEDS ORDERED: CHLO118S2 TP (10:08)
[2017-06-09] MEDS ORDERED: CARV6.25 PO (10:08)
[2017-06-09] MEDS ORDERED: BISA10SU46 RC (10:08)
[2017-06-09] MEDS ORDERED: METO10TA98 PO (10:08)
[2017-06-09] MEDS ORDERED: TRAZ-286 PO (10:08)
[2017-06-09] MEDS ORDERED: LACT10CA PO (10:08)
[2017-06-09] MEDS ORDERED: LEVO250T2 PO (10:08)
[2017-06-09] MEDS ORDERED: ACET1TAB93 PO (10:15)
[2017-06-09] MEDS ORDERED: LABETALOL 100 MG/20 ML VIAL IV SCH (10:21)
[2017-06-09 11:00] VITALS: BP 116/71
[2017-06-09] MEDS: INSULIN LISPRO SLIDING SCALE 100 UNITS/ML VIAL SUBQ PRN (12:43)
--- NOTE | 2017-06-09 13:20 | NUR ---
PATIENT DISCHARGED TO HOME. DISCHARGE INSTRUCTIONS AND DISCHARGE PRESCRIPTIONS GIVEN. PATIENT AND PATIENT'S DAUGHTER VERBALIZED UNDERSTANDING. IV LINE DISCONTINUED. PATIENT LEFT WITH ALL HIS BELONGINGS AND DISCHARGE PAPERS. PATIENT LEFT IN STABLE CONDITION
--- NOTE | 2017-06-09 13:30 | NUR ---
PHYSICAL THERAPY CO-SIGN The Physical Therapy Progress Notes documented by Client Account Assistant have been reviewed. I concur with the documentation of this DENTAL PATIENT COORDINATOR. Patient will benefit from more rehab services at home to help achieve his maximum functional potential as he is making good and steady progress with PT. Reviewed/Co-Signed by: Katarzyna De León PT Documentation Done by: Bayron Brennan, DENTAL PATIENT COORDINATOR Addendum: 06/09/17 at 1503 by Katarzyna De León PT Amended: Links added.
== END 2017-06-09 13:30 | disposition home or self-care (01) | DRG 383 ==
LOC: MED 11:56 → MTU 15:04
PROVIDERS: ADMIT Family Medicine; ATTEND Family Medicine
PROC: 0JBR0ZZ Excision of Left Foot Subcutaneous Tissue and Fascia, Open Approach (ICD-10-PCS; principal; 2017-06-07)
PROC: 5A1D70Z Performance of Urinary Filtration, Intermittent, Less than 6 Hours Per Day (ICD-10-PCS; 2017-06-08)
DX: L03.116 Cellulitis of left lower limb (principal); N17.0 Acute kidney failure with tubular necrosis; I50.43 Acute on chronic combined systolic (congestive) and diastolic (congestive) heart failure; I67.4 Hypertensive encephalopathy; I13.2 Hypertensive heart and chronic kidney disease with heart failure and with stage 5 chronic kidney disease, or end stage renal disease; D68.59 Other primary thrombophilia; E11.22 Type 2 diabetes mellitus with diabetic chronic kidney disease; N18.6 End stage renal disease; E11.42 Type 2 diabetes mellitus with diabetic polyneuropathy; E87.8 Other disorders of electrolyte and fluid balance, not elsewhere classified; E11.51 Type 2 diabetes mellitus with diabetic peripheral angiopathy without gangrene; K31.84 Gastroparesis; E11.43 Type 2 diabetes mellitus with diabetic autonomic (poly)neuropathy; E11.65 Type 2 diabetes mellitus with hyperglycemia; E44.1 Mild protein-calorie malnutrition; E78.5 Hyperlipidemia, unspecified; M47.9 Spondylosis, unspecified; M51.46 Schmorl's nodes, lumbar region; J32.9 Chronic sinusitis, unspecified; E11.621 Type 2 diabetes mellitus with foot ulcer; I35.0 Nonrheumatic aortic (valve) stenosis; I42.2 Other hypertrophic cardiomyopathy; D63.8 Anemia in other chronic diseases classified elsewhere; J98.11 Atelectasis; E83.39 Other disorders of phosphorus metabolism; E83.42 Hypomagnesemia; L97.529 Non-pressure chronic ulcer of other part of left foot with unspecified severity; Z99.2 Dependence on renal dialysis; Z90.49 Acquired absence of other specified parts of digestive tract; Z79.82 Long term (current) use of aspirin; Z79.4 Long term (current) use of insulin; Z68.24 Body mass index [BMI] 24.0-24.9, adult; Z22.322 Carrier or suspected carrier of Methicillin resistant Staphylococcus aureus
CPT/HCPCS: 36415; 70450; 71045; 73630; 80048; 80053; 82140; 82150; 82948; 83036; 83605; 83690; 83735; 83880; 84100; 84436; 84439; 84443; 84479; 84484; 85025; 85610; 85730; 87040; 87081; 93005; 93925; 93970; 96374; 96375; 96376; 97110; 97116; 97140; 97530; 99285; G0482; J0360; J1170; J1200; J1644; J1815; J1956; J2270; J2405; J2543; J3490; J7030; J7060; J8597; Q0092; Q0163

== ENCOUNTER 2017-06-20 09:59 | Emergency (ER) | payer MEDICAID ==
[~2017-06-20] VITALS: Ht 182.9 cm; Wt 81.6 kg
[~2017-06-20 09:59] MED LIST changes: +ACET1TAB93 PO; +ATA10 PO; +BACTO TP; +BISA10SU46 RC; +CHLO118S2 TP; +CLIN300C2 PO; +GLUC-805 FS; -IBUP-2213 PO; +LACT10CA PO; +LEVO250T2 PO; +METO10TA98 PO; +TRAZ-286 PO
[2017-06-20 10:19] VITALS: BP 198/92
[2017-06-20] MEDS ORDERED: NACL 0.9% 1,000 ML IV ONE (10:37)
[2017-06-20] MEDS ORDERED: ONDANSETRON 4 MG/2 ML VIAL IVP ONE (10:40)
[2017-06-20] MEDS ORDERED: MORPHINE SULFATE 4 MG/ML SYR IVP ONE (10:40)
[2017-06-20 11:33] LABS: BASOPHILS # (AUTO) 0.1 K/uL (0.00-0.22); BASOPHILS % (AUTO) 1.1 % (0.0-2.0); EOSINOPHILS # (AUTO) 0.1 K/uL (0-0.4); EOSINOPHILS % (AUTO) 1.8 % (0.0-4.0); HEMOGLOBIN 10.9 g/dL (12.0-18.0); LYMPHOCYTES # (AUTO) 0.6 K/uL (2.0-11.5); LYMPHOCYTES % (AUTO) 9.3 % (20.5-51.1); MEAN CORPUSCULAR HEMOGLOBIN 34 pg (27-31); MEAN CORPUSCULAR HGB CONC 33 g/dL (33-37); MEAN CORPUSCULAR VOLUME 103 fL (80-94); MONOCYTES # (AUTO) 0.7 K/uL (0.8-1.0); MONOCYTES % (AUTO) 11.7 % (1.7-9.3); NEUTROPHILS # (AUTO) 4.7 K/uL (1.8-7.7); NEUTROPHILS % (AUTO) 76.1 % (42.2-75.2); PLATELET COUNT (AUTO) 150 K/uL (140-450); RED CELL DISTRIBUTION WIDTH 14.8 % (11.6-13.7); WHITE BLOOD COUNT (AUTO) 6.2 K/uL (4.8-10.8)
[2017-06-20 11:52] LABS: ANION GAP 18.4 (8-16); CARBON DIOXIDE 25.8 mmol/L (21-32); POTASSIUM 4.2 mmol/L (3.5-5.1)
[2017-06-20 11:58] LABS: ALBUMIN 3.6 g/dL (3.4-5.0); TOTAL BILIRUBIN 1.3 mg/dL (0.0-1.0)
[2017-06-20 13:10] VITALS: BP 143/82
--- NOTE | 2017-06-20 13:10 | NUR ---
Patient discharged with v/s stable. Written and verbal after care instructions given and explained. Patient alert, oriented and verbalized understanding of instructions. Ambulatory with steady gait. All questions addressed prior to discharge. ID band removed. Patient advised to follow up with PMD. Rx of BENTYL given. Patient educated on indication of medication including possible reaction and side effects. Opportunity to ask questions provided and answered.
== END 2017-06-20 13:10 | disposition home or self-care (01) ==
LOC: MED 09:59
DX: K31.84 Gastroparesis (principal); E11.22 Type 2 diabetes mellitus with diabetic chronic kidney disease; I12.0 Hypertensive chronic kidney disease with stage 5 chronic kidney disease or end stage renal disease; N18.6 End stage renal disease; Z99.2 Dependence on renal dialysis; Z90.49 Acquired absence of other specified parts of digestive tract
CPT/HCPCS: 36415; 74176; 80053; 82948; 83690; 85025; 96361; 96374; 96375; 99285; J2270; J2405

== ENCOUNTER 2017-10-10 21:23 | Emergency (ER) | payer MEDICAID ==
[~2017-10-10] VITALS: Ht 177.8 cm; Wt 83.9 kg
[2017-10-10 21:28] VITALS: BP 167/90
--- NOTE | 2017-10-10 21:30 | NUR ---
TO BED # 4 AMB, REPORT GIVEN TO THU GALLEGOS.
--- NOTE | 2017-10-10 21:30 | NUR ---
PATIENT PRESENTS TO ED WITH DIABETIC WOUND FOR 2 WEEKS ON HIS LEFT FOOT . PT DENIES N/V/D; AAOX4 WITH EVEN AND STEADY GAIT; LUNGS CLEAR BL; HR EVEN AND REGULAR; PT DENIES ANY FEVER, CP, SOB, OR COUGH AT THIS TIME; PATIENT STATES PAIN OF 9/10 AT THIS TIME; VSS; PATIENT POSITIONED FOR COMFORT; HOB ELEVATED; BEDRAILS UP X2; BED DOWN. ER MD MADE AWARE OF PT STATUS.
--- NOTE | 2017-10-10 21:51 | NUR ---
Patient discharged with v/s stable. Written and verbal after care instructions given and explained. Patient alert, oriented and verbalized understanding of instructions. Ambulatory with steady gait. All questions addressed prior to discharge. ID band removed. Patient advised to follow up with PMD. Rx of MOTRIN 800MG AND BACTRIM DS, KEFLEX 500MG given. Patient educated on indication of medication including possible reaction and side effects. Opportunity to ask questions provided and answered.
[2017-10-10 21:52] VITALS: BP 152/87
== END 2017-10-10 21:52 | disposition home or self-care (01) ==
LOC: EDBD 21:23 → MED 21:23
DX: E11.621 Type 2 diabetes mellitus with foot ulcer (principal); L97.529 Non-pressure chronic ulcer of other part of left foot with unspecified severity; K21.9 Gastro-esophageal reflux disease without esophagitis; I12.0 Hypertensive chronic kidney disease with stage 5 chronic kidney disease or end stage renal disease; N18.6 End stage renal disease; E11.22 Type 2 diabetes mellitus with diabetic chronic kidney disease; Z89.422 Acquired absence of other left toe(s); Z89.421 Acquired absence of other right toe(s)
CPT/HCPCS: 99283

== ENCOUNTER 2017-12-30 10:13 | Emergency (ER) | payer MEDICAID ==
[~2017-12-30] VITALS: Ht 172.7 cm; Wt 83.0 kg
[~2017-12-30 10:13] MED LIST changes: -TRAZ-286 PO; +TRAZ-370 PO
[2017-12-30 10:27] VITALS: BP 174/92
--- NOTE | 2017-12-30 10:34 | NUR ---
PATIENT AMBULATED TO BED 11.
--- NOTE | 2017-12-30 10:38 | NUR ---
Pt brought in by daughter to the ED c/o of pain in the right hand, 3 fingers - middle, pointer, thumb. Pain, redness, tender and swollen fingers, pain 10/10. s/sx started 2 weeks ago but the pain is "unbearable today". Pt denies this occuring prior to 2 weeks ago. Pt states the pain is constant and feels like his fingers and burning. Pt denies allergies. Pt has Diaylsis shunt in right arm; thrill papaled, asymptomatic. Pt had diaylsis today without complications. Pt has history of GERD, Dialysis, hyperlipidemia, Renal issues. Pt walks with a cane. Lungs are clear bilaterally, s1s2 heard.
--- NOTE | 2017-12-30 10:48 | NUR ---
Dr. Chatterjee at bedside assessing pt.
[2017-12-30] MEDS ORDERED: methylPREDNISolone SS 125 MG in WATER STERILE 2 ML IM ONE (10:50)
[2017-12-30] MEDS ORDERED: KETOROLAC 30 MG/ML VIAL IM ONE (10:50)
[2017-12-30 12:32] VITALS: BP 149/74
--- NOTE | 2017-12-30 12:34 | NUR ---
Patient discharged with v/s stable. Written and verbal after care instructions given and explained. Patient alert, oriented and verbalized understanding of instructions. Ambulatory with steady gait. All questions addressed prior to discharge. ID band removed. Patient advised to follow up with PMD. Rx of TRAMADOL AND PREDNISONE given. Patient educated on indication of medication including possible reaction and side effects. Opportunity to ask questions provided and answered.
== END 2017-12-30 12:34 | disposition home or self-care (01) ==
LOC: MED 10:13
DX: M13.841 Other specified arthritis, right hand (principal); E11.9 Type 2 diabetes mellitus without complications; K21.9 Gastro-esophageal reflux disease without esophagitis; I10 Essential (primary) hypertension; Z79.4 Long term (current) use of insulin; Z79.899 Other long term (current) drug therapy
CPT/HCPCS: 73130; 96372; 99284; J1885; J2930

== ENCOUNTER 2018-01-21 12:04 | Emergency (ER) | payer MEDICAID ==
[~2018-01-21] VITALS: Ht 182.9 cm; Wt 85.0 kg
[2018-01-21 12:13] VITALS: BP 134/77
[2018-01-21] MEDS ORDERED: CLINDAMYCIN 600 MG/4 ML VIAL IM ONE (13:00)
[2018-01-21] MEDS ORDERED: HYDROcodone/APAP 5/325 MG 1 TAB TAB PO ONE (13:00)
[2018-01-21] MEDS ORDERED: methylPREDNISolone SS 125 MG in WATER STERILE 2 ML IM ONE (13:00)
[2018-01-21 14:37] VITALS: BP 129/75
== END 2018-01-21 14:35 | disposition home or self-care (01) ==
LOC: MED 12:04
DX: S60.462A Insect bite (nonvenomous) of right middle finger, initial encounter (principal); S60.460A Insect bite (nonvenomous) of right index finger, initial encounter; S30.860A Insect bite (nonvenomous) of lower back and pelvis, initial encounter; L08.9 Local infection of the skin and subcutaneous tissue, unspecified; I12.0 Hypertensive chronic kidney disease with stage 5 chronic kidney disease or end stage renal disease; E11.22 Type 2 diabetes mellitus with diabetic chronic kidney disease; N18.6 End stage renal disease; K21.9 Gastro-esophageal reflux disease without esophagitis; Z79.899 Other long term (current) drug therapy; W57.XXXA Bitten or stung by nonvenomous insect and other nonvenomous arthropods, initial encounter; Y93.89 Activity, other specified; Y92.89 Other specified places as the place of occurrence of the external cause; Y99.8 Other external cause status
CPT/HCPCS: 73140; 96372; 99284; J2930; J3490; Q0092

== ENCOUNTER 2018-01-24 21:13 | Inpatient (IN) | payer MEDICAID ==
[~2018-01-24] VITALS: Ht 182.9 cm; Wt 81.6 kg
[2018-01-24 21:56] VITALS: BP 156/83
--- NOTE | 2018-01-24 22:01 | NUR ---
PT SENT TO [facility] W/ FAMILY, VSGerson, STEADY GAIT W/ NAT.
--- NOTE | 2018-01-24 22:40 | NUR ---
PT AMBULATED TO BED 4 WITH FAMILY
--- NOTE | 2018-01-24 22:54 | NUR ---
57YO M TO ER W/C/O BITE/OPEN SKIN NOTED CLOSED WOUND TO RIGHT LOWER BACK, NO ACTIVE BLEEDING OR DRAINAGE, PT WAS SEEN IN ER LAST WEEK FOR SAME S/S BUT TO FINGERS AND GIVEN ABX. PT STATES THAT A "BLISTER" RUPTURED TODAY ON "BITE" WITH YELLOW DRAINAGE. FIRM DEFINED EDGES, SOLAR INSTALLATION TECHNICIAN TO TOUCH, WARM. RIGHT FIRST THREE FINGER TIPS WITH SWELLING NOTED GRETER IN FIRST FINGER. PT WITH FISTULA IN RIGHT ARM WITH POS BRUIE AND THRILL. ER MD MADE AWAER. WILL CONTINUE TO MONITOR. PT POSITIONED FOR COMFORT.
[2018-01-25] MEDS ORDERED: VANCOMYCIN PER PHARMACY MC PRN ×2 (01:00→05:05)
[2018-01-25] MEDS ORDERED: VANCOMYCIN 1GM/DEXT 5% PREMIX 200 ML IV ONE (01:00)
[2018-01-25] MEDS ORDERED: VANCOMYCIN 1,000 MG VIAL ONE (01:10)
--- NOTE | 2018-01-25 01:15 | NUR ---
ULTRASOUND AT BEDSIDE
--- NOTE | 2018-01-25 01:20 | NUR ---
new peripheral iv started to R forearm. Addendum: 01/25/18 at 0231 by MNURUT 20G perpipheral iv
[2018-01-25] MEDS ORDERED: KETOROLAC 30 MG/ML VIAL IVP ONE (02:10)
[2018-01-25] MEDS ORDERED: KETOROLAC 30 MG/ML VIAL ONE (02:16)
[2018-01-25] MEDS ORDERED: NACL 0.9% 1,000 ML IV ONE (03:00)
[2018-01-25 03:33] LABS: BASOPHILS % (AUTO) 0.4 % (0.0-2.0); EOSINOPHILS # (AUTO) 0.1 K/uL (0-0.4); EOSINOPHILS % (AUTO) 0.6 % (0.0-4.0); HEMATOCRIT 32.6 % (36-52); HEMOGLOBIN 10.8 g/dL (12.0-18.0); LYMPHOCYTES # (AUTO) 0.9 K/uL (2.0-11.5); LYMPHOCYTES % (AUTO) 9.3 % (20.5-51.1); MEAN CORPUSCULAR HEMOGLOBIN 35 pg (27-31); MEAN CORPUSCULAR HGB CONC 33 g/dL (33-37); MONOCYTES % (AUTO) 11.1 % (1.7-9.3); NEUTROPHILS # (AUTO) 7.4 K/uL (1.8-7.7); NEUTROPHILS % (AUTO) 78.6 % (42.2-75.2); PLATELET COUNT (AUTO) 142 K/uL (140-450); RED BLOOD CELL COUNT(AUTO) 3.11 MIL/uL (4.20-6.10); RED CELL DISTRIBUTION WIDTH 13.4 % (11.6-13.7); WHITE BLOOD COUNT (AUTO) 9.4 K/uL (4.8-10.8)
[2018-01-25 03:47] LABS: PROTHROMBIN TIME 11.8 secs (10.8-13.4)
[2018-01-25 03:48] LABS: ALBUMIN 3.2 g/dL (3.4-5.0); ANION GAP 10.4 (8-16); POTASSIUM 5.4 mmol/L (3.5-5.1); TOTAL BILIRUBIN 0.5 mg/dL (0.0-1.0)
[2018-01-25] MEDS ORDERED: DOCUSATE SODIUM 100 MG GELCAP PO PRN (04:20)
[2018-01-25] MEDS ORDERED: ONDANSETRON 4 MG/2 ML VIAL IM/IVP PRN (04:20)
[2018-01-25] MEDS ORDERED: ACETAMINOPHEN 325 MG TAB PO PRN (04:20)
[2018-01-25] MEDS ORDERED: LORazepam 2 MG/ML VIAL IM/IVP PRN (04:20)
[2018-01-25 04:45] VITALS: BP 154/84
--- NOTE | 2018-01-25 04:45 | NUR ---
PT TRANSFERRED VIA GURNEY TO RM 114A ON TELE MONITOR, REPORT GIVEN TO PEDRO GALLEGOS @ BEDSIDE. NO ACUTE DISTRESS NOTED.
--- NOTE | 2018-01-25 04:45 | NUR ---
REPORT RECEIVED FROM ED NURSE AT BEDSIDE. PT IN STABLE CONDITION. AAOX4. INTRODUCED SELF AND BOARD UPDATED. IV SITE L FA 20G RUNNING NS AT 20ML/HR. R UA FISTULA FOR HD ON , , , AND S. SKIN WARM, DRY, INTACT WITH NO OPEN WOUNDS. RIGHT INDEX FINGER CELLULITIS BUT WOUND IS NOT OPEN. PAST INSECT BITE WOUND ON BACK HEALING. BILATERAL FOOT AMPUTATION. BED LOCKED IN LOW POSITION. CALL CAMPUZANO WITHIN REACH. SAFETY PRECAUTIONS IN PLACE. NO COMPLAINTS OF PAIN. NO SOB.
[2018-01-25 05:16] LABS: CHOL/HDL RATIO 1.6 (1-4.5); PHOSPHORUS 8.4 mg/dL (2.5-4.9); THYROID STIMULATING HORMONE 1.7 uIU/mL (0.34-3.74)
[2018-01-25] MEDS: NACL 0.9% 1,000 ML IV SCH (05:16)
[2018-01-25] MEDS ORDERED: FUROSEMIDE 40 MG/4 ML VIAL IVP SCH (06:00)
--- NOTE | 2018-01-25 06:34 | NUR ---
TYL 650MG PO GIVEN FOR HEADACHE. PT TOLERATED WELL.
--- NOTE | 2018-01-25 07:05 | NUR ---
RECEIVED PT REPORT FROM LEARNING DISABLED TEACHER NURSE AT BEDSIDE. PT IS AWAKE AND ALERT, NO S/S OF DISTRESS. IV SITE NOTED ON L FOREARM, INFUSING NS AT 20 ML/HR. HD DIALYSIS ACCESS NOTED ON R UPPER ARM. PT IS ON ROOM AIR. BED IN LOW POSITION, CALL LIGHT WITHIN REACH. WILL CONTINUE TO MONITOR.
[2018-01-25 07:10] LABS: BASOPHILS # (AUTO) 0.1 K/uL (0.00-0.22); BASOPHILS % (AUTO) 0.6 % (0.0-2.0); EOSINOPHILS # (AUTO) 0.1 K/uL (0-0.4); EOSINOPHILS % (AUTO) 0.9 % (0.0-4.0); HEMATOCRIT 34.8 % (36-52); HEMOGLOBIN 11.4 g/dL (12.0-18.0); LYMPHOCYTES # (AUTO) 1.1 K/uL (2.0-11.5); LYMPHOCYTES % (AUTO) 9.3 % (20.5-51.1); MEAN CORPUSCULAR HEMOGLOBIN 35 pg (27-31); MEAN CORPUSCULAR HGB CONC 33 g/dL (33-37); MEAN CORPUSCULAR VOLUME 105.9 fL (80-94); MONOCYTES % (AUTO) 8.7 % (1.7-9.3); NEUTROPHILS # (AUTO) 9.6 K/uL (1.8-7.7); NEUTROPHILS % (AUTO) 80.5 % (42.2-75.2); PLATELET COUNT (AUTO) 180 K/uL (140-450); RED BLOOD CELL COUNT(AUTO) 3.29 MIL/uL (4.20-6.10); RED CELL DISTRIBUTION WIDTH 13.3 % (11.6-13.7); WHITE BLOOD COUNT (AUTO) 11.9 K/uL (4.8-10.8)
--- NOTE | 2018-01-25 07:20 | NUR ---
REPORT GIVEN TO AM NURSE AT BEDSIDE. PT IN STABLE CONDITION.
[2018-01-25 07:48] LABS: ANION GAP 17.6 (8-16); CARBON DIOXIDE 27.7 mmol/L (21-32); POTASSIUM 5.3 mmol/L (3.5-5.1)
[2018-01-25 07:52] LABS: MAGNESIUM 2.1 mg/dL (1.8-2.4)
[2018-01-25 08:00] VITALS: BP 173/90
--- NOTE | 2018-01-25 08:56 | NUR ---
PATIENT HAS BEEN SCREENED AND CATEGORIZED MODERATE NUTRITION RISK. PATIENT WILL BE SEEN WITHIN 3-5 DAYS OF ADMISSION. 01/27/18 01/29/[address]
--- NOTE | 2018-01-25 09:03 | NUR ---
PT IS BACK ON THE UNIT AFTER HAVING CT OF HIS HAND.
--- NOTE | 2018-01-25 09:58 | NUR ---
CALLED DR MARTIN REGARDING PT'S DIALYSIS TREATMENT SCHEDULED FOR TODAY. PER DR MARTIN, HE WILL CONTACT THE DIALYSIS NURSE. DR MARTIN AWARE OF PT'S BUN 82 AND CREATININE 9.
[2018-01-25] MEDS ORDERED: VANCOMYCIN 500 MG in DEXTROSE 5% 100 ML IV SCH (11:00)
--- NOTE | 2018-01-25 11:35 | NUR ---
UNABLE TO OBTAIN URINE FROM PATIENT VIA STRAIGHT CATH. BLADDER SCAN SHOWS NO VOLUME. DR BURRELL NOTIFIED.
[2018-01-25] MEDS: PIPER/TAZO 2.25GM/D5W PREMIX 50 ML IV SCH ×2 (11:58→20:43)
[2018-01-25 12:00] VITALS: BP 194/98
[2018-01-25] MEDS: SEVELAMER CARBONATE 800 MG TAB PO SCH ×2 (12:21→16:35)
[2018-01-25] MEDS: cloNIDine 0.1 MG TAB PO SCH ×2 (12:22→16:34)
[2018-01-25] MEDS ORDERED: hydrALAZINE 20 MG/ML VIAL IVP PRN (15:25)
[2018-01-25 16:00] VITALS: BP 160/84
--- NOTE | 2018-01-25 16:33 | NUR ---
HEMODIALYSIS FINISHED, 2.6 LITERS OUT. PT IS A&O, RESTING IN BED, NO S/S OF DISTRESS.
[2018-01-25] MEDS: HYDROcodone/APAP 5/325 MG 1 TAB TAB PO PRN ×2 (16:39→20:43)
--- NOTE | 2018-01-25 19:15 | NUR ---
PT REPORT GIVEN AT BEDSIDE TO DISEASE CASE MANAGER NURSE. PT ENDORSED IN STABLE CONDITION, NO S/S OF DISTRESS.
--- NOTE | 2018-01-25 19:16 | NUR ---
REPORT RECEIVED FROM AM NURSE AT BEDSIDE. PT IN STABLE CONDITION. AAOX4. BOARD UPDATED AND INTRODUCED SELF TO PT. IV SITE L FA 20G RUNNING NS@20ML/HR. PT HAS R UA FISTULA. HD ON , , , S. HD DONE TODAY. 2.6L PULLED OUT. SKIN WARM, DRY, AND INTACT WITH NO OPEN WOUNDS. BED LOCKED IN LOW POSITION. CALL CAMPUZANO WITHIN REACH. SAFETY MEASURES IN PLACE. COMPLAINTS OF PAIN 10/01. WILL MEDICATE. NO SOB.
[2018-01-25 20:00] VITALS: BP 172/84
[2018-01-25] MEDS: ZOLPIDEM 5 MG TAB PO PRN (20:43)
[2018-01-25] MEDS: CARVEDILOL 6.25 MG TAB PO SCH (20:43)
--- NOTE | 2018-01-25 20:43 | NUR ---
ZOSYN HUNG AND RUNNING. CARVEDILOL, NORCO, AND AMBIEN GIVEN PO. PT TOLERATED WELL.
[2018-01-25] MEDS ORDERED: traZODone 50 MG TAB PO PRN (21:00)
--- NOTE | 2018-01-25 21:15 | NUR ---
POC REGARDING ANTIBIOTICS DISCUSSED WITH DR. GARZA. JUDY TO BE DC. PRICE WILL BE ORDERED.
--- NOTE | 2018-01-25 22:25 | NUR ---
PT COMPLAINS OF ITCHINESS. NOTIFIED. NEW ORDER FOR BENADRYL ENTERED.
[2018-01-25] MEDS ORDERED: diphenhydrAMINE 50 MG/ML VIAL IVP SCH (22:30)
--- NOTE | 2018-01-25 22:32 | NUR ---
BENADRYL GIVEN IVP. PT TOLERATED WELL.
[2018-01-26] VITALS: BP 158/85
--- NOTE | 2018-01-26 00:30 | NUR ---
PT LAYING COMFORTABLY IN BED WATCHING TV. NO S/S OF DISTRESS NOTED. WILL CONTINUE TO MONITOR.
[2018-01-26] MEDS: HYDROcodone/APAP 5/325 MG 1 TAB TAB PO PRN ×2 (02:55→17:01)
--- NOTE | 2018-01-26 02:55 | NUR ---
PT REPORTS PAIN 6/10. NORCO GIVEN PO. PT TOLERATED WELL.
[2018-01-26 04:00] VITALS: BP_SYST 125; BP_SYST 135; BP_DIAS 55; BP_DIAS 56
[2018-01-26] MEDS: NACL 0.9% 1,000 ML IV SCH (04:07)
--- NOTE | 2018-01-26 04:50 | NUR ---
PT SLEEPING COMFORTABLY IN BED. NO S/S OF DISTRESS NOTED. BREATHING EVEN, UNLABORED, AND WNL.
[2018-01-26] MEDS ORDERED: DEXTROSE 50% 50 ML SYR IVP PRN (05:20)
[2018-01-26] MEDS: BLOOD GLUCOSE MONITORING 1 DEV DEV FS SCH ×4 (05:39→20:39)
[2018-01-26] MEDS: INSULIN LISPRO SLIDING SCALE 100 UNITS/ML VIAL SUBQ PRN ×3 (05:43→20:41)
--- NOTE | 2018-01-26 05:43 | NUR ---
BS 163. 2 UNITS OF HUMALOG GIVEN. PT TOLERATED WELL.
[2018-01-26 06:49] LABS: BASOPHILS % (AUTO) 0.4 % (0.0-2.0); EOSINOPHILS # (AUTO) 0.2 K/uL (0-0.4); EOSINOPHILS % (AUTO) 2.5 % (0.0-4.0); LYMPHOCYTES # (AUTO) 0.6 K/uL (2.0-11.5); LYMPHOCYTES % (AUTO) 7.8 % (20.5-51.1); MEAN CORPUSCULAR HEMOGLOBIN 35 pg (27-31); MEAN CORPUSCULAR HGB CONC 33 g/dL (33-37); MEAN CORPUSCULAR VOLUME 104.1 fL (80-94); MONOCYTES # (AUTO) 0.7 K/uL (0.8-1.0); MONOCYTES % (AUTO) 9.4 % (1.7-9.3); NEUTROPHILS # (AUTO) 6.1 K/uL (1.8-7.7); NEUTROPHILS % (AUTO) 79.9 % (42.2-75.2); PLATELET COUNT (AUTO) 144 K/uL (140-450); RED BLOOD CELL COUNT(AUTO) 2.88 MIL/uL (4.20-6.10); RED CELL DISTRIBUTION WIDTH 13.4 % (11.6-13.7); WHITE BLOOD COUNT (AUTO) 7.6 K/uL (4.8-10.8)
[2018-01-26 07:08] LABS: MAGNESIUM 1.8 mg/dL (1.8-2.4); PHOSPHORUS 6.3 mg/dL (2.5-4.9)
[2018-01-26 07:12] LABS: POTASSIUM 4.2 mmol/L (3.5-5.1)
--- NOTE | 2018-01-26 07:25 | NUR ---
REPORT GIVEN TO AM NURSE AT BEDSIDE. PT IN STABLE CONDITION.
--- NOTE | 2018-01-26 07:30 | NUR ---
RECEIVED PT REPORT FROM CERTIFIED ORTHOPTIST NURSE AT BEDSIDE. PT IS SLEEPING, EASILY AROUSED, OX4. IV SITE NOTED TO THE L FA, 20G, RUNNING NS@20ML/HR, PATENT AND ASYMPTOMATIC. R UA FISTULA FOR HEMODIALYSIS. HD ON , , , S. HD DONE YESTERDAY. 2.6L TAKEN OUT. SKIN WARM, DRY, AND INTACT WITH NO OPEN WOUNDS. RIGHT LOWER BACK HAS ABSCESS, RIGHT INDEX FINGER IS SWOLLEN. BED LOCKED IN LOWEST POSITION. CALL LIGHT WITHIN REACH. SAFETY MEASURES IN PLACE. WILL CONTINUE TO MONITOR.
[2018-01-26 07:33] LABS: ANION GAP 11.7 (8-16); CARBON DIOXIDE 26.5 mmol/L (21-32)
[2018-01-26 07:38] LABS: CREATININE 7.2 mg/dL (0.7-1.3)
[2018-01-26 08:00] VITALS: BP 146/74
[2018-01-26 08:30] LABS: T4 (THYROXINE) 6.6 ug/dL (4.5-12.0)
--- NOTE | 2018-01-26 08:45 | NUR ---
C/O R INDEX FINGER AND LOWER BACK PAIN, 10, WILL ADMINISTER MORPHINE PRESCRIBED.
[2018-01-26] MEDS: MORPHINE SULFATE 2 MG/ML SYR IVP PRN ×2 (08:47→20:04)
[2018-01-26] MEDS: SEVELAMER CARBONATE 800 MG TAB PO SCH ×3 (08:47→17:02)
[2018-01-26] MEDS: ATORVASTATIN 80 MG TAB PO SCH (08:51)
[2018-01-26] MEDS: cloNIDine 0.1 MG TAB PO SCH ×4 (08:52→17:03)
[2018-01-26] MEDS: CARVEDILOL 6.25 MG TAB PO SCH ×2 (08:52→20:03)
[2018-01-26] MEDS: amLODIPine 5 MG TAB PO SCH (08:53)
[2018-01-26] MEDS: INSULIN LANTUS 100 UNITS/ML 10 ML VIAL SUBQ SCH (08:58)
--- NOTE | 2018-01-26 10:14 | NUR ---
Lmsw Note: I met with patient at bedside. Patient speaks Faroese, not fluent in Yoruba. Per patient, he lives at home with his daughter Mili Hernandez and would like to return there upon discharge. He uses a cane to ambulate, does not have home O2. He follows up with his pcp regularly. He goes to [facility] on /Th/Sat at 5am, sometimes he drives himself to dialysis center, sometimes his daughter Mili takes him. He has had good communication with attending MD and nursing staff, does not have any questions or concerns at this time. Benzene Washer Operator and/or Salesperson Parts will follow up as needed.
--- NOTE | 2018-01-26 10:15 | NUR ---
MEDICINE WORKER CALLED, STATED IV INFILTRATED. WILL PERFORM THE STUDY TOMORROW.
--- NOTE | 2018-01-26 11:56 | NUR ---
Wound care evaluation note: reason for evaluation:Right index finger and right lower back inset bites wound Skin assessment done on this 57 year old male with initial Dx:Right index finger and right lower back inset bites wound . 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 Right arm AV fistula placement)Patient states that the pain on his right index finger and lower back comes and goes. Integumentary: -Right index finder, pale in color, swelling with skin intact,no open lesion, pain 0/10 -Right lower back brown scab 3x3cm with induration 0.5cm tall, area dry and tender to touch pain 2/10 Recommendation: -Surgeon to consult -Keep areas dry and clean at all times -Position q2 hr for comfort.
[2018-01-26 12:00] VITALS: BP 114/66
--- NOTE | 2018-01-26 14:43 | NUR ---
PAGED DR MARTIN FOR HEMODIALYSIS ORDER FOR TOMORROW. WAITING CALL BACK
[2018-01-26] MEDS ORDERED: VANCOMYCIN PER PHARMACY MC PRN (15:00)
[2018-01-26 16:00] VITALS: BP 135/78
--- NOTE | 2018-01-26 17:38 | NUR ---
SPOKE WITH DR WOLFF. HE STATED WILL SEE PT MARGARET.
--- NOTE | 2018-01-26 19:15 | NUR ---
ENDORSED PT TO PATENT DRAFTER RN. PT IN STABLE CONDITION.
--- NOTE | 2018-01-26 19:20 | NUR ---
REPORT RECEIVED FROM AM NURSE AT BEDSIDE. PT IN STABLE CONDITION. AAOX4. INTRODUCED SELF AND BOARD UPDATED. SX CONSULT WITH MS MARGARET. IV SITE L FA 22G PATENT AND INTACT RUNNING NS AT 20ML/HR. SKIN WARM, DRY, AND NOT INTACT DUE TO CELLULITIS OF THE RIGHT INDEX FINGER AND RIGHT LOWER BACK. WOUND CONSULT COMPLETE TODAY. NO COMPLAINTS OF PAIN. NO SOB. BED LOCKED IN LOW POSITION. CALL CAMPUZANO WITHIN REACH. SAFETY MEASURES IN PLACE. Addendum: 01/26/18 at 1940 by Toño Eugene RN HD ACCESS ON R UA FISTULA.
[2018-01-26 20:00] VITALS: BP 175/90
--- NOTE | 2018-01-26 20:03 | NUR ---
COREG GIVEN PO. MORPHINE GIVEN IVP AT 2003 FOR 10/10 PAIN ON RIGHT FINGER AND RIGHT LOWER BACK. PT TOLERATED WELL.
--- NOTE | 2018-01-26 21:00 | NUR ---
CONSENT SIGNED BY PT.
--- NOTE | 2018-01-26 23:00 | NUR ---
PT LAYING IN BED WATCHING TV. NO S/S OF DISTRESS NOTED.
[2018-01-26] MEDS: ZOLPIDEM 5 MG TAB PO PRN (23:32)
--- NOTE | 2018-01-26 23:32 | NUR ---
AMBIEN GIVEN PO FOR SLEEP. PT TOLERATED WELL.
[2018-01-27] VITALS: BP 122/64
--- NOTE | 2018-01-27 01:30 | NUR ---
PT SLEEPING COMFORTABLY IN BED. NO S/S OF DISTRESS NOTED. WILL CONTINUE TO MONITOR.
[2018-01-27 04:00] VITALS: BP 135/72
[2018-01-27] MEDS: NACL 0.9% 1,000 ML IV SCH ×2 (04:51→11:52)
[2018-01-27] MEDS: MORPHINE SULFATE 2 MG/ML SYR IVP PRN (04:52)
--- NOTE | 2018-01-27 04:52 | NUR ---
MORPHINE GIVEN FOR 10/10 PAIN. PT TOLERATED WELL.
[2018-01-27] MEDS: BLOOD GLUCOSE MONITORING 1 DEV DEV FS SCH ×4 (05:18→20:39)
--- NOTE | 2018-01-27 05:18 | NUR ---
BS 152. 2 UNITS OF HUMALOG GIVEN. PT TOLERATED WELL.
[2018-01-27] MEDS: INSULIN LISPRO SLIDING SCALE 100 UNITS/ML VIAL SUBQ PRN ×2 (05:20→17:28)
[2018-01-27 06:35] LABS: BASOPHILS % (AUTO) 0.5 % (0.0-2.0); EOSINOPHILS # (AUTO) 0.4 K/uL (0-0.4); EOSINOPHILS % (AUTO) 4.5 % (0.0-4.0); HEMATOCRIT 31.4 % (36-52); HEMOGLOBIN 10.3 g/dL (12.0-18.0); LYMPHOCYTES # (AUTO) 0.7 K/uL (2.0-11.5); LYMPHOCYTES % (AUTO) 9.3 % (20.5-51.1); MEAN CORPUSCULAR HEMOGLOBIN 35 pg (27-31); MEAN CORPUSCULAR HGB CONC 33 g/dL (33-37); MONOCYTES # (AUTO) 0.8 K/uL (0.8-1.0); MONOCYTES % (AUTO) 10.4 % (1.7-9.3); NEUTROPHILS # (AUTO) 5.9 K/uL (1.8-7.7); NEUTROPHILS % (AUTO) 75.3 % (42.2-75.2); PLATELET COUNT (AUTO) 154 K/uL (140-450); RED BLOOD CELL COUNT(AUTO) 2.99 MIL/uL (4.20-6.10); RED CELL DISTRIBUTION WIDTH 13.2 % (11.6-13.7); WHITE BLOOD COUNT (AUTO) 7.8 K/uL (4.8-10.8)
[2018-01-27 07:01] LABS: ANION GAP 12.5 (8-16); CARBON DIOXIDE 27.1 mmol/L (21-32); POTASSIUM 4.6 mmol/L (3.5-5.1)
--- NOTE | 2018-01-27 07:25 | NUR ---
REPORT GIVEN TO AM NURSE AT BEDSIDE. PT IN STABLE CONDITION.
--- NOTE | 2018-01-27 07:30 | NUR ---
RECEIVED PT VON BED AAOX4. NO SOB NOTED. NO C/O PAIN AT THIS TIME. IV TO LT HAND PATENT AND INTACT. RT UPPER AV SHUNT DRESSING DRY AND INTACT, BRUITS FELT. CHEST CLEAR. ABDOMEN SOFT, BOWEL SOUNDS PRESENT. NPO MAINTAINED FOR PROCEDURE. WOUND TO LOWER BACK OPEN TO AIR, NO DRAINAGE NOTED. INSTRUCTED PT TO CALL FOR ASSISTANCE, CALL LIGHT WITHIN REACH, PT VERBALIZED UNDERSTANDING.
--- NOTE | 2018-01-27 07:30 | NUR ---
RECEIVED PT ABDULAZIZ BHATT AAOX4. NO SOB NOTED. NO C/O PAIN AT THIS TIME. IV TO LT HAND PATENT AND INTACT. RT UPPER AV SHUNT DRESSING DRY AND INTACT, BRUITS FELT. Addendum: 01/27/18 at 0926 by Celi Lares RN DISREGARD ABOVE NOTES, DUPLICATE.
[2018-01-27 07:31] LABS: CREATININE 9.2 mg/dL (0.7-1.3)
[2018-01-27 08:00] VITALS: BP 137/80
[2018-01-27] MEDS: SEVELAMER CARBONATE 800 MG TAB PO SCH ×3 (08:00→17:26)
--- NOTE | 2018-01-27 08:54 | NUR ---
PT STATED " I THINK MY BLOOD SUGAR IS LOW". INTRUSTED PT TO KEEP NOO FOR PROCEDURE. NOTIFIED DR. GARCIA, ORDERS GIVEN. D50 IVP GIVEN ORDERED. WILL CONTINUE TO MONITOR PT. Addendum: 01/27/18 at 1132 by Celi Lares RN PT'S BLOOD SUGAR: 66 MG/DL.
[2018-01-27] MEDS: ATORVASTATIN 80 MG TAB PO SCH (09:00)
[2018-01-27] MEDS: CHLORHEXADINE GLUC 2% CLOTH TP SCH (09:00)
[2018-01-27] MEDS: cloNIDine 0.1 MG TAB PO SCH ×3 (09:00→17:26)
[2018-01-27] MEDS: INSULIN LANTUS 100 UNITS/ML 10 ML VIAL SUBQ SCH (09:00)
[2018-01-27] MEDS: amLODIPine 5 MG TAB PO SCH (09:00)
[2018-01-27] MEDS: CARVEDILOL 6.25 MG TAB PO SCH ×2 (09:00→22:26)
--- NOTE | 2018-01-27 09:30 | NUR ---
BLOOD SUGAR RECHECKED: 154 MG/DL. PT RESTING. NO COMPLAINTS MADE.
[2018-01-27] MEDS: MUPIROCIN CA NASAL 2% 1GM TUBE NS SCH (10:46)
[2018-01-27] MEDS ORDERED: MIDAZOLAM 2 MG/2 ML VIAL ONE (11:25)
[2018-01-27] MEDS ORDERED: fentaNYL 0.05 MG/ML VIAL ONE (11:25)
--- NOTE | 2018-01-27 11:31 | NUR ---
PT WHEELED TO SURGERY IN STABLE CONDITION. CONSENT FOR I&D ALREADY SIGNED BY PT, VERBALIZED UNDERSTANDING.
[2018-01-27] MEDS ORDERED: BUPIVACAINE-MPF/EPI 0.25% 30 ML VIAL INJ ONE (11:36)
[2018-01-27] MEDS ORDERED: PROPOFOL 200 MG/20 ML VIAL IV ONE (11:40)
[2018-01-27] MEDS ORDERED: diphenhydrAMINE 50 MG/ML VIAL IVP PRN (11:55)
[2018-01-27] MEDS ORDERED: ONDANSETRON 4 MG/2 ML VIAL IVP PRN (11:55)
[2018-01-27] MEDS ORDERED: HYDROmorphone 1 MG/ML AMP IVP PRN (11:55)
[2018-01-27] MEDS ORDERED: BLOOD GLUCOSE MONITORING 1 DEV DEV FS SCH (12:30)
[2018-01-27 13:10] VITALS: BP 131/83
--- NOTE | 2018-01-27 13:10 | NUR ---
PT BACK FROM SX S/P I&D OF LOWER BACK WOUND. PT AAOX4. NO SOB NOTED. NO COMPLAINTS MADE.
--- NOTE | 2018-01-27 14:00 | NUR ---
HEMODIALYSIS CONSENT SIGNED BY PT, VERBALIZED UNDERSTANDING.
--- NOTE | 2018-01-27 14:15 | NUR ---
YOSELYN FROM IMAGING DEPT CALLED AND STATED THAT A NUCLEAR MED CAREER SERVICES COORDINATOR WILL BE HERE AT 8 PM TONIGHT TO DO BONE SCAN ON PT'S RT INDEX FINGER. DR. DUMONT NOTIFIED. ADDITIONAL IV LINE ESTABLISHED ON LT FOREARM WITH GAUGE #22 ORDERED.
--- NOTE | 2018-01-27 16:55 | NUR ---
SPOKE WITH CARLA HD RN REGARDING PT'S SCHEDULE FOR HD, CARLA STATED SHE WILL START PT'S HD AROUND 7PM TONIGHT, PT NOTIFIED, VERBALIZED UNDERSTANDING.
[2018-01-27 17:03] VITALS: BP 157/79
--- NOTE | 2018-01-27 18:56 | NUR ---
PT AWAKE. NO SOB NOTED. NO COMPLAINTS MADE. FAMILY AT THE BEDSIDE. WILL ENDORSE TO NEXT SHIFT NURSE FOR CONTINUITY OF CARE.
--- NOTE | 2018-01-27 19:20 | NUR ---
RECEIVED PT ON BED AAOX4, VITAL SIGNS SLIGHTLY ELEVATED, DENIES CHEST PAIN BUT COMPLAINING OF RT FINGER PAIN SEC TO CELLULITIS, WILL MEDICATE PRN, HD RN AGUIRRE AT BEDSIDE STARTING HEMODIALYSIS, PLAN OF CARE DISCUSS, SAFETY MEASURES IN PLACE, CALL LIGHT WITHIN REACH, MAINTAIN ON CONTACT ISOLATION.
[2018-01-27] MEDS: HYDROcodone/APAP 5/325 MG 1 TAB TAB PO PRN (19:59)
[2018-01-27 20:00] VITALS: BP 151/87
--- NOTE | 2018-01-27 22:10 | NUR ---
CALLED RADIOLOGY AND SPOKE TO NANDO REGARDING BONE SCAN FOR TONIGHT, SHE CALLED NUC[facility]AR [facility] AND I SPOKE TO BUTCH AND SHE STATED THAT SHE DIDN'T CAME TONIGHT BECAUSE SHE TALKED TO DR DUMONT AT 1900 AND SHE TOLD HER THAT THEY ARE TRYING TO PUT ANOTHER IV LINE TO THE FA OR AC BECAUSE THEY CANNOT DO THE BONE SCAN WITH AN IV SITE TO THE HAND/WRIST, MADE HER AWARE THAT PT ALREADY HAD ANOTHER IV LINE TO THE FOREARM GAUGE 22, AND SHE STATED THAT NOBODY TOLD HER ABOUT THIS, STATED THAT IT WILL BE DONE AROUND 1300 TOMORROW, HUMAN RESOURCES TRAINEE LINDA MADE AWARE.
--- NOTE | 2018-01-27 22:10 | NUR ---
HEMODIALYSIS DONE WITH 3L OUT, BP-166/77, HR-78, WILL ADMINISTER DUE BP MEDICATION, MONITORED CLOSELY.
[2018-01-27] MEDS: ZOLPIDEM 5 MG TAB PO PRN ×2 (22:26→23:02)
--- NOTE | 2018-01-27 23:30 | NUR ---
PT AWAKE SITTING ON SIDE OF BED TALKING TO FAMILY MEMBER BY PHONE, VITAL SIGNS TAKEN, BP SLIGHTLY ELEVATED BUT STABLE, DENIES PAIN AT THIS TIME, RT LOWER BACK DRESSING WITH MODERATE BLEEDING NOTED, DRESSING INTACT, REINFORCED DRESSING AT THIS TIME, CONTINUE TO MONITOR CLOSELY.
[2018-01-28] VITALS (8 sets, daily range): BP systolic 110–160; BP diastolic 68–87
[2018-01-28] MEDS: MORPHINE SULFATE 2 MG/ML SYR IVP PRN (00:50)
--- NOTE | 2018-01-28 03:40 | NUR ---
PT AWAKE SITTING ON SIDE OF BED COMPLAINING OF ITCHINESS TO THE BACK AND NECK AREA, NO SIGNS OF RASH OR REDNESS NOTED, PAGED DR SAVAGE WITH NEW ORDER, VITAL SIGNS STABLE, TOLERABLE PAIN AT THIS TIME, MEDICATED WITH BENADRYL PO ORDERED, WILL REASSESS, MONITORED CLOSELY.
[2018-01-28] MEDS: NACL 0.9% 1,000 ML IV SCH ×3 (04:20→21:12)
[2018-01-28] MEDS: HYDROcodone/APAP 5/325 MG 1 TAB TAB PO PRN ×2 (05:50→19:13)
[2018-01-28] MEDS: INSULIN LISPRO SLIDING SCALE 100 UNITS/ML VIAL SUBQ PRN ×3 (05:52→20:40)
[2018-01-28] MEDS ORDERED: VANCOMYCIN 500 MG VIAL IV SCH (06:00)
--- NOTE | 2018-01-28 06:00 | NUR ---
BLOOD SUGAR CHECKED WITH 188 RESULT, COVERAGE GIVEN, DUE VANCOMYCIN 500MG IVPB INFUSING WELL, MONITORED FOR REACTION.
[2018-01-28] MEDS: BLOOD GLUCOSE MONITORING 1 DEV DEV FS SCH ×4 (06:43→20:39)
[2018-01-28 06:50] LABS: BASOPHILS % (AUTO) 0.2 % (0.0-2.0); EOSINOPHILS # (AUTO) 0.3 K/uL (0-0.4); HEMATOCRIT 31.2 % (36-52); HEMOGLOBIN 10.5 g/dL (12.0-18.0); LYMPHOCYTES # (AUTO) 0.5 K/uL (2.0-11.5); LYMPHOCYTES % (AUTO) 5.9 % (20.5-51.1); MEAN CORPUSCULAR HEMOGLOBIN 35 pg (27-31); MEAN CORPUSCULAR HGB CONC 34 g/dL (33-37); MEAN CORPUSCULAR VOLUME 104.4 fL (80-94); MONOCYTES # (AUTO) 0.9 K/uL (0.8-1.0); MONOCYTES % (AUTO) 10.5 % (1.7-9.3); NEUTROPHILS # (AUTO) 7.2 K/uL (1.8-7.7); NEUTROPHILS % (AUTO) 80.4 % (42.2-75.2); PLATELET COUNT (AUTO) 166 K/uL (140-450); RED BLOOD CELL COUNT(AUTO) 2.99 MIL/uL (4.20-6.10); RED CELL DISTRIBUTION WIDTH 13.2 % (11.6-13.7); WHITE BLOOD COUNT (AUTO) 8.9 K/uL (4.8-10.8)
[2018-01-28 07:00] LABS: MAGNESIUM 1.9 mg/dL (1.8-2.4); PHOSPHORUS 5.9 mg/dL (2.5-4.9)
[2018-01-28 07:01] LABS: ANION GAP 14.9 (8-16); CARBON DIOXIDE 28.4 mmol/L (21-32); POTASSIUM 4.3 mmol/L (3.5-5.1)
--- NOTE | 2018-01-28 07:15 | NUR ---
PT AWAKE, NO SIGNS OF DISTRESS, REPORT GIVEN TO ARUN PATEL FOR CONTINUITY OF CARE.
--- NOTE | 2018-01-28 07:15 | NUR ---
ASSUMED CONTINUITY OF CARE. NO SIGNS AND SYMPTOMS OF ACUTE DISTRESS NOTED. INITIAL ASSESSMENT DONE. KEEP COMFORTABLE ON BED. EXPLAINED DIAGNOSIS, PLAN OF CARE, POST-OP CARE, PAIN MANAGEMENT TEACHING, CONTACT ISOLATION PRECAUTION, USE OF CALL LIGHT/BED/TV/BATHROOM. VERBALIZED UNDERSTANDING. FALL PRECAUTION APPLIED. CALL LIGHT WITHIN REACH.
--- NOTE | 2018-01-28 07:16 | NUR ---
Patient's Plan of Care was discussed and reviewed with GARNISHMENT SPECIALIST: JORGE PALOMARES
[2018-01-28 07:21] LABS: CREATININE 7.3 mg/dL (0.7-1.3)
[2018-01-28] MEDS: SEVELAMER CARBONATE 800 MG TAB PO SCH ×3 (08:27→16:39)
[2018-01-28] MEDS: ATORVASTATIN 80 MG TAB PO SCH (08:51)
[2018-01-28] MEDS: amLODIPine 5 MG TAB PO SCH (08:51)
[2018-01-28] MEDS: CARVEDILOL 6.25 MG TAB PO SCH ×2 (08:52→20:38)
[2018-01-28] MEDS: MUPIROCIN CA NASAL 2% 1GM TUBE NS SCH (08:53)
[2018-01-28] MEDS: cloNIDine 0.1 MG TAB PO SCH ×3 (08:53→16:39)
[2018-01-28] MEDS: INSULIN LANTUS 100 UNITS/ML 10 ML VIAL SUBQ SCH (09:00)
[2018-01-28] MEDS: CHLORHEXADINE GLUC 2% CLOTH TP SCH (09:01)
[2018-01-28 10:14] LABS: HEPATITIS A ANTIBODY IGM Negative (Negative); HEPATITIS B CORE AB TOTAL Negative (Negative); HEPATITIS B SURFACE ANTIBODY Non Reactive (.); HEPATITIS B SURFACE ANTIGEN Negative (Negative)
--- NOTE | 2018-01-28 15:58 | NUR ---
PT. DAUGHTER -JAMIE AND ANOTHER FAMILY MEMBER CAME TO VISIT PT.. EXPLAINED AND EDUCATED THEM ABOUT CONTACT ISOLATION PRECAUTION FOR MRSA NARES POSITIVE. PT. DAUGHTER -JAMIE AND ANOTHER FAMILY MEMBER VERBALIZED UNDERSTANDING.
--- NOTE | 2018-01-28 17:34 | NUR ---
WENT TO NM VIA WHEELCHAIR. IN STABLE CONDITION.
--- NOTE | 2018-01-28 18:20 | NUR ---
BACK FROM NM VIA WHEELCHAIR. NO C/O PAIN. NO SOB, NOTED. KEEP COMFORTABLE ON BED.
--- NOTE | 2018-01-28 19:07 | NUR ---
BEDSIDE REPORT GIVEN TO GEETA CORRAL. IN STABLE CONDITION.
--- NOTE | 2018-01-28 19:20 | NUR ---
ALSO ENDORSED TO GEETA CORRAL ABOUT PAIN MEDS THAT WAS GIVEN AT 1913 AND FOR PAIN RE-ASSESSMENT DOCUMENTATION.
--- NOTE | 2018-01-28 19:25 | NUR ---
RECEIVED FROM AM NURSE AWAKE AND ALERT. ORIENTED X 4. CLEAR SPEECH. SITTING UP IN CHAIR. DX. OF CELLULITIS OF FINGERS. CALL LIGHT WITH IN REACH. CARE PLANS FOR THE NIGHT DISCUSSED WITH HIM. NO SOB. DENIES ANY PAIN AT THIS TIME.
--- NOTE | 2018-01-28 23:16 | NUR ---
PT. OUT OF UNIT FOR BONE SCAN. WHEELED OUT AWAKE AND ALERT. NO SOB. DENIES PAIN.
--- NOTE | 2018-01-29 00:57 | NUR ---
PT. BACK IN BED AND SLEEPING. CALL LIGHT WITH IN REACH.
[2018-01-29] MEDS: ZOLPIDEM 5 MG TAB PO PRN (01:09)
[2018-01-29] MEDS: NACL 0.9% 1,000 ML IV SCH ×2 (01:09→13:52)
--- NOTE | 2018-01-29 01:13 | NUR ---
PT. WOKE UP AND ASKED FOR SLEEPING PILL. REFUSED TO CONTINUE WITH NS IVF. "TOO MUCH AGUA IN MY FACE" NO MORE. WILL INFORM RESIDENT MD.
--- NOTE | 2018-01-29 01:19 | NUR ---
ABLE TO TALK TO RESIDENT MD SAVAGE AND STATED SHE TABATHA DISCONTINUE IVF OF NS AT 20 ML /H RT PT. REFUSED ANYMORE FLUIDS.
--- NOTE | 2018-01-29 04:11 | NUR ---
SLEEPING. NO RESTLESSNESS. ABLE TO USE CALL LIGHT FOR HELP.
[2018-01-29] MEDS: BLOOD GLUCOSE MONITORING 1 DEV DEV FS SCH ×3 (06:06→16:30)
--- NOTE | 2018-01-29 06:06 | NUR ---
BLOOD SUGAR CHECK PER FINGERSTICK 150. NO INSULIN COVERAGE. PT. WENT BACK TO SLEEP. ABLE TO VERBALIZE NEEDS WELL.
--- NOTE | 2018-01-29 07:22 | NUR ---
RECEIVED REPORT FROM STEWARD/STEWARDESS SMOKE ROOM NURSE. PATIENT LYING DOWN IN BED SLEEPING, AROUSABLE BY VOICE. NO DISTRESS NOTED. COMPLAINS OF PAIN ON LOW BACK WOUND, WILL MEDICATE ORDERED. AAOX4, CALM, COOPERATIVE, SKIN COLOR APPROPRIATE TO ETHNICITY, WARM TO TOUCH. HAS LOWER BACK WOUND S/P I&D, DRESSING IS DRY AND INTACT. LEFT FINGER CLOSED CELLULITIS NOTED WITH SWELLING. ABDOMEN SOFT, NON-DISTENDED. LUNGS CTA ON ALL LOBES. REVIEWED PLAN OF CARE WITH PATIENT. PATIENT VERBALIZED UNDERSTANDING. SAFETY MEASURES IN PLACE, CALL LIGHT WITHIN REACH. WILL CONTINUE TO MONITOR.
[2018-01-29 07:39] LABS: BASOPHILS % (AUTO) 0.4 % (0.0-2.0); EOSINOPHILS # (AUTO) 0.3 K/uL (0-0.4); EOSINOPHILS % (AUTO) 3.1 % (0.0-4.0); HEMATOCRIT 31.2 % (36-52); HEMOGLOBIN 10.3 g/dL (12.0-18.0); LYMPHOCYTES # (AUTO) 0.8 K/uL (2.0-11.5); LYMPHOCYTES % (AUTO) 9.4 % (20.5-51.1); MEAN CORPUSCULAR HEMOGLOBIN 35 pg (27-31); MEAN CORPUSCULAR HGB CONC 33 g/dL (33-37); MEAN CORPUSCULAR VOLUME 105.2 fL (80-94); MONOCYTES % (AUTO) 11.8 % (1.7-9.3); NEUTROPHILS # (AUTO) 6.2 K/uL (1.8-7.7); NEUTROPHILS % (AUTO) 75.3 % (42.2-75.2); PLATELET COUNT (AUTO) 168 K/uL (140-450); RED BLOOD CELL COUNT(AUTO) 2.97 MIL/uL (4.20-6.10); RED CELL DISTRIBUTION WIDTH 13.4 % (11.6-13.7); WHITE BLOOD COUNT (AUTO) 8.2 K/uL (4.8-10.8)
[2018-01-29 07:46] LABS: ANION GAP 10.3 (8-16); CARBON DIOXIDE 28.4 mmol/L (21-32); POTASSIUM 4.7 mmol/L (3.5-5.1)
[2018-01-29 07:51] LABS: CREATININE 9.8 mg/dL (0.7-1.3)
[2018-01-29 08:00] VITALS: BP 161/90
[2018-01-29] MEDS: HYDROcodone/APAP 5/325 MG 1 TAB TAB PO PRN ×2 (08:47→12:54)
[2018-01-29] MEDS: CARVEDILOL 6.25 MG TAB PO SCH (08:47)
[2018-01-29] MEDS: ATORVASTATIN 80 MG TAB PO SCH (08:47)
[2018-01-29] MEDS: cloNIDine 0.1 MG TAB PO SCH ×4 (08:47→17:38)
[2018-01-29] MEDS: SEVELAMER CARBONATE 800 MG TAB PO SCH ×3 (08:47→17:37)
[2018-01-29] MEDS: CHLORHEXADINE GLUC 2% CLOTH TP SCH (08:48)
[2018-01-29] MEDS: amLODIPine 5 MG TAB PO SCH (08:48)
[2018-01-29] MEDS: INSULIN LANTUS 100 UNITS/ML 10 ML VIAL SUBQ SCH (08:52)
--- NOTE | 2018-01-29 08:53 | NUR ---
PATIENT SITTING AT BEDSIDE. NO DISTRESS NOTED. COMPLAINS OF PAIN, NORCO GIVEN PER MD ORDERS. BP MEDS NOT GIVEN DUE TO HD LATER TODAY. LANTUS NOT GIVEN DUE TO NPO. SAFETY MEASURES IN PLACE, CALL LIGHT WITHIN REACH. WILL CONTINUE TO MONITOR.
[2018-01-29] MEDS: MUPIROCIN CA NASAL 2% 1GM TUBE NS SCH (10:52)
--- NOTE | 2018-01-29 11:30 | NUR ---
PATIENT WALKING AROUND ROOM WITH STEADY GAIT. NO DISTRESS NOTED. CONDITION UNCHANGED. WILL CONTINUE TO MONITOR.
--- NOTE | 2018-01-29 11:50 | NUR ---
WOUND CARE RE-EVALUATION S/P I&D RIGHT POSTERIOR BACK WOUND: - SURGICAL WOUND TO RIGHT POSTERIOR BACK WITH 3X7X2 CM, WOUND BED IS CLEAN AND RED IN COLOR, SMALL AMOUNT OF SANGUINOUS DRAINAGE, NO ODOR IVANA WOUND SKIN INTACT. PAIN 4/10. RECOMMENDATIONS: - CLEANSE SURGICAL WOUND TO RIGHT POSTERIOR BACK WITH NS, PAT DRY ,APPLY HYDROGEL WITH ADAPTIC DRESSING, COVER WITH DRY DRESSING QD AND PRN IF SOILING. -KEEP AREA DRY AND CLEAN AT ALL TIMES PRIMARY RN AND DR. BURRELL NOTIFIED OF RECOMMENDATIONS
[2018-01-29] MEDS ORDERED: SKINTEGRITY HYDROGEL TP SCH (13:30)
--- NOTE | 2018-01-29 13:31 | NUR ---
PATIENT SITTING IN BED WITH LUNCH TRAY. NO DISTRESS NOTED. PATIENT NOT RECEIVING HD OR SURGERY TODAY PER MD. SCHEDULED BP MEDICATIONS DUE GIVEN DUE TO NO DIALYSIS TODAY. WILL CONTINUE TO MONITOR.
--- NOTE | 2018-01-29 13:45 | NUR ---
HYDROGEL NOT APPLIED TO WOUND PER ORDERS AT THIS TIME DUE TO WOUND CARE NURSE LOVE EVALUATION ALREADY COMPLETED AND LOVE CHANGED WOUND DRESSING WITH PACKING ALREADY. WILL START APPLICATION OF HYDROGEL ON WOUND UPON NEXT WOUND DRESSING CHANGE. WILL CONTINUE TO MONITOR.
--- NOTE | 2018-01-29 14:46 | NUR ---
01/29/18 RD INITIAL ASSESSMENT COMPLETED PLEASE REFER TO NUTRITION ASSESSMENT UNDER CARE ACTIVITY FOR ESTIMATED NUTRITIONAL NEEDS. 1. CONTINUE CCHO 60, RENAL DIET TOLERATED 2. RECOMMEND NEPRO BID. 3. RD TO FOLLOW-UP 5-7 DAYS, LOW RISK JAMAL XIONG, RD
[2018-01-29 16:00] VITALS: BP 141/72
--- NOTE | 2018-01-29 16:23 | NUR ---
Food Processing Scientist Note: Per nursing supervisor dry cell assembly Elizabeth from [facility] , they can administer IV Vancomycin 1gm for 6 weeks on dialysis days during dialysis treatment, made aware. Elizabeth requested MD's order for Vancomycin to be faxed. I faxed order, fax number . I called and spoke with Elizabeth and confirmed MD's order was received.
[2018-01-29] MEDS: INSULIN LISPRO SLIDING SCALE 100 UNITS/ML VIAL SUBQ PRN (17:35)
[2018-01-29 17:38] VITALS: BP 141/72
--- NOTE | 2018-01-29 17:40 | NUR ---
PATIENT SITTING IN BED. NO DISTRESS NOTED. PAIN WITHIN TOLERABLE. SCHEDULED MEDICATIONS DUE GIVEN. SAFETY MEASURES IN PLACE, CALL LIGHT WITHIN REACH. WILL CONTINUE TO MONITOR.
--- NOTE | 2018-01-29 18:00 | NUR ---
DISCHARGE INSTRUCTIONS PROVIDED TO PATIENT IN PREFERRED LANGUAGE OF SLOVENIAN USING WREATH AND GARLAND MAKER PHONE WITH TRANSLATER #[id number]. DISCHARGE INSTRUCTIONS ON FOLLOW-UP VISIT WITH PCP, DIALYSIS CENTER FOR IV ANTIBX, DIET REGIMEN, MEDICATION REGIMEN, AND WOUND CARE MANAGEMENT PROVIDED. ANSWERED ALL OF PATIENTS QUESTIONS REGARDING DISCHARGE. PATIENT VERBALIZED COMPLETE UNDERSTANDING. PATIENT TO GET DRESSED AND WAIT FOR DAUGHTER TO ARRIVE TO TAKE PATIENT HOME. WILL CONTINUE TO MONITOR.
--- NOTE | 2018-01-29 19:10 | NUR ---
PATIENT FAMILY MEMBER AT BEDSIDE READY TO TAKE PATIENT HOME. IV SITE REMOVED WITH MINIMAL BLOOD AND LUMEN COMPLETELY INTACT. ID BANDS REMOVED. ESCORTED PATIENT DOWN TO LOBBY VIA WHEELCHAIR. PATIENT DISCHARGED AT THIS TIME IN STABLE CONDITION TO HOME.
[2018-01-30] MEDS ORDERED: SKINTEGRITY HYDROGEL TP SCH (09:00)
== END 2018-01-29 19:10 | disposition home or self-care (01) | DRG 383 ==
LOC: MED 21:13 → EDBD 01-25 04:20 → MTU 01-25 04:20
PROVIDERS: ADMIT General Practice; ATTEND General Practice
PROC: 5A1D70Z Performance of Urinary Filtration, Intermittent, Less than 6 Hours Per Day (ICD-10-PCS; 2018-01-25)
PROC: 5A1D70Z Performance of Urinary Filtration, Intermittent, Less than 6 Hours Per Day (ICD-10-PCS; 2018-01-27)
PROC: 0JB83ZZ Excision of Abdomen Subcutaneous Tissue and Fascia, Percutaneous Approach (ICD-10-PCS; principal; 2018-01-27 09:30)
DX: L02.211 Cutaneous abscess of abdominal wall (principal); N17.0 Acute kidney failure with tubular necrosis; I50.43 Acute on chronic combined systolic (congestive) and diastolic (congestive) heart failure; E11.22 Type 2 diabetes mellitus with diabetic chronic kidney disease; E44.1 Mild protein-calorie malnutrition; M86.9 Osteomyelitis, unspecified; E11.51 Type 2 diabetes mellitus with diabetic peripheral angiopathy without gangrene; L03.011 Cellulitis of right finger; I13.11 Hypertensive heart and chronic kidney disease without heart failure, with stage 5 chronic kidney disease, or end stage renal disease; L02.212 Cutaneous abscess of back [any part, except buttock and flank]; N18.6 End stage renal disease; E11.65 Type 2 diabetes mellitus with hyperglycemia; E87.1 Hypo-osmolality and hyponatremia; E87.5 Hyperkalemia; E83.39 Other disorders of phosphorus metabolism; D53.9 Nutritional anemia, unspecified; D63.8 Anemia in other chronic diseases classified elsewhere; E78.00 Pure hypercholesterolemia, unspecified; E78.5 Hyperlipidemia, unspecified; K21.9 Gastro-esophageal reflux disease without esophagitis; D63.1 Anemia in chronic kidney disease; L98.429 Non-pressure chronic ulcer of back with unspecified severity; E11.69 Type 2 diabetes mellitus with other specified complication; Z99.2 Dependence on renal dialysis; Z68.25 Body mass index [BMI] 25.0-25.9, adult; Z90.49 Acquired absence of other specified parts of digestive tract; Z22.322 Carrier or suspected carrier of Methicillin resistant Staphylococcus aureus; Z79.82 Long term (current) use of aspirin; Z79.899 Other long term (current) drug therapy; Z89.432 Acquired absence of left foot; Z89.431 Acquired absence of right foot; Z79.84 Long term (current) use of oral hypoglycemic drugs
CPT/HCPCS: 36415; 71045; 73200; 76536; 76881; 78315; 80048; 80053; 80202; 82150; 82550; 82948; 83036; 83690; 83735; 83880; 84100; 84134; 84436; 84443; 84484; 85025; 85610; 85730; 86140; 86704; 86706; 86708; 86709; 86803; 87040; 87070; 87075; 87081; 87186; 87205; 87340; 93005; 93308; 93925; 93970; 96365; 96375; 99285; A6248; C1758; J0360; J1200; J1815; J1885; J2250; J2270; J2543; J2704; J3010; J3370; J3490; J7030; J7060; Q0092; Q0163

== ENCOUNTER 2018-03-04 15:57 | Emergency (ER) | payer MEDICAID ==
[~2018-03-04] VITALS: Ht 180.3 cm; Wt 83.9 kg
[~2018-03-04 15:57] MED LIST changes: -ACET1TAB93 PO; -ASPI81CT89 PO; -BACTO TP; -BISA10SU46 RC; -CHLO118S2 TP; -CLIN300C2 PO; -LACT10CA PO; -LEVO250T2 PO
[2018-03-04 16:01] VITALS: BP 129/77
--- NOTE | 2018-03-04 16:01 | NUR ---
PT AMBULATES TO BED 8
--- NOTE | 2018-03-04 16:15 | NUR ---
PT C/O LOWER ABD PAIN SINCE AM THIS MORNING. 10 SHARP LOWER ABD PAIN. PMH---CHOLESTEROL, DM, HTN, DIALYSIS (M/T AND TH/SAT), R ARM SHUNT NKA VSS; PATIENT POSITIONED FOR COMFORT; HOB ELEVATED; BEDRAILS UP X1; BED DOWN. ER MD MADE AWARE OF PT STATUS.
--- NOTE | 2018-03-04 16:31 | NUR ---
Patient being evaluated by physician at bedside.
[2018-03-04] MEDS ORDERED: KETOROLAC 60 MG/2 ML VIAL IM ONE (16:35)
[2018-03-04 17:17] LABS: BASOPHILS # (AUTO) 0.1 K/uL (0.00-0.22); BASOPHILS % (AUTO) 0.9 % (0.0-2.0); EOSINOPHILS # (AUTO) 0.2 K/uL (0-0.4); EOSINOPHILS % (AUTO) 2.2 % (0.0-4.0); HEMATOCRIT 31.8 % (36-52); HEMOGLOBIN 10.2 g/dL (12.0-18.0); LYMPHOCYTES # (AUTO) 0.5 K/uL (2.0-11.5); LYMPHOCYTES % (AUTO) 6.4 % (20.5-51.1); MEAN CORPUSCULAR HEMOGLOBIN 34 pg (27-31); MEAN CORPUSCULAR HGB CONC 32 g/dL (33-37); MEAN CORPUSCULAR VOLUME 106.1 fL (80-94); MONOCYTES # (AUTO) 1.2 K/uL (0.8-1.0); MONOCYTES % (AUTO) 14.9 % (1.7-9.3); NEUTROPHILS # (AUTO) 5.9 K/uL (1.8-7.7); NEUTROPHILS % (AUTO) 75.6 % (42.2-75.2); PLATELET COUNT (AUTO) 208 K/uL (140-450); RED BLOOD CELL COUNT(AUTO) 2.99 MIL/uL (4.20-6.10); RED CELL DISTRIBUTION WIDTH 16.7 % (11.6-13.7); WHITE BLOOD COUNT (AUTO) 7.8 K/uL (4.8-10.8)
[2018-03-04 17:33] LABS: ANION GAP 13.9 (8-16); CARBON DIOXIDE 31.4 mmol/L (21-32); POTASSIUM 4.3 mmol/L (3.5-5.1); TOTAL BILIRUBIN 1.5 mg/dL (0.0-1.0)
[2018-03-04 17:35] LABS: CREATININE 6.1 mg/dL (0.7-1.3)
[2018-03-04 18:48] VITALS: BP 129/77
--- NOTE | 2018-03-04 18:48 | NUR ---
Patient discharged with v/s stable. Written and verbal after care instructions given and explained. Patient alert, oriented and verbalized understanding of instructions. Ambulatory with steady gait. All questions addressed prior to discharge. ID band removed. Patient advised to follow up with PMD. Rx of ZOFRAN AND MOTRIN given. Patient educated on indication of medication including possible reaction and side effects. Opportunity to ask questions provided and answered.
== END 2018-03-04 18:48 | disposition home or self-care (01) ==
LOC: MED 15:57 → CANBEDREQ 18:06 → MED 18:48
DX: I31.3 Pericardial effusion (noninflammatory) (principal); R10.13 Epigastric pain; R60.1 Generalized edema; E11.9 Type 2 diabetes mellitus without complications; K21.9 Gastro-esophageal reflux disease without esophagitis; I10 Essential (primary) hypertension; Z79.84 Long term (current) use of oral hypoglycemic drugs; Z79.899 Other long term (current) drug therapy; Z79.4 Long term (current) use of insulin
CPT/HCPCS: 36415; 74176; 80053; 83690; 84484; 85025; 96372; 99285; J1885

== ENCOUNTER 2018-03-22 02:40 | Inpatient (IN) | payer MEDICAID ==
[~2018-03-22] VITALS: Ht 167.6 cm; Wt 87.1 kg
[2018-03-22] VITALS (8 sets, daily range): BP systolic 85–129; BP diastolic 52–82
[2018-03-22] MEDS ORDERED: NACL 0.9% 500 ML IV ONE (03:00)
[2018-03-22] MEDS ORDERED: KETOROLAC 15 MG/ML VIAL IVP ONE (03:00)
[2018-03-22] MEDS ORDERED: ONDANSETRON 4 MG/2 ML VIAL IVP ONE (03:00)
[2018-03-22 04:05] LABS: ALBUMIN 2.6 g/dL (3.4-5.0); CARBON DIOXIDE 30.1 mmol/L (21-32); TOTAL BILIRUBIN 1.3 mg/dL (0.0-1.0)
[2018-03-22 04:13] LABS: BASOPHILS # (AUTO) 0.1 K/uL (0.00-0.22); BASOPHILS % (AUTO) 0.6 % (0.0-2.0); EOSINOPHILS # (AUTO) 0.3 K/uL (0-0.4); EOSINOPHILS % (AUTO) 2.7 % (0.0-4.0); HEMATOCRIT 26.4 % (36-52); HEMOGLOBIN 8.5 g/dL (12.0-18.0); LYMPHOCYTES # (AUTO) 0.7 K/uL (2.0-11.5); MEAN CORPUSCULAR HEMOGLOBIN 33 pg (27-31); MEAN CORPUSCULAR HGB CONC 32 g/dL (33-37); MEAN CORPUSCULAR VOLUME 103.8 fL (80-94); MONOCYTES % (AUTO) 10.1 % (1.7-9.3); NEUTROPHILS # (AUTO) 8.2 K/uL (1.8-7.7); NEUTROPHILS % (AUTO) 79.9 % (42.2-75.2); PLATELET COUNT (AUTO) 256 K/uL (140-450); RED BLOOD CELL COUNT(AUTO) 2.55 MIL/uL (4.20-6.10); RED CELL DISTRIBUTION WIDTH 17.2 % (11.6-13.7); WHITE BLOOD COUNT (AUTO) 10.2 K/uL (4.8-10.8)
[2018-03-22 04:18] LABS: ANION GAP 15.1 (8-16); POTASSIUM 5.2 mmol/L (3.5-5.1)
[2018-03-22 04:23] LABS: CREATININE 7.6 mg/dL (0.7-1.3)
[2018-03-22 04:40] LABS: LYMPHOCYTES % (AUTO) 6.7 % (20.5-51.1)
[2018-03-22] MEDS ORDERED: ACETAMINOPHEN 325 MG TAB PO ONE (04:40)
[2018-03-22] MEDS ORDERED: NACL 0.9% 1,000 ML IV SCH (04:50)
[2018-03-22] MEDS ORDERED: MORPHINE SULFATE 2 MG/ML SYR IVP PRN (04:50)
[2018-03-22] MEDS ORDERED: LORazepam 2 MG/ML VIAL IM/IVP PRN (04:50)
[2018-03-22] MEDS ORDERED: DOCUSATE SODIUM 100 MG GELCAP PO PRN (04:50)
[2018-03-22] MEDS ORDERED: HYDROcodone/APAP 5/325 MG 1 TAB TAB PO ONE (04:50)
[2018-03-22] MEDS ORDERED: ONDANSETRON 4 MG/2 ML VIAL IM/IVP PRN (04:50)
[2018-03-22] MEDS ORDERED: INSULIN REGULAR SUBQ SCH (05:30)
[2018-03-22] MEDS ORDERED: [UNRECOGNIZED DRUG - OTHER] SUBQ SCH (05:30)
[2018-03-22] MEDS ORDERED: traZODone 50 MG TAB PO PRN (05:30)
[2018-03-22] MEDS ORDERED: DEXTROSE 50% 50 ML SYR IVP PRN (05:40)
[2018-03-22 05:48] LABS: CHOL/HDL RATIO 3.1 (1-4.5); PHOSPHORUS 6.9 mg/dL (2.5-4.9); THYROID STIMULATING HORMONE 1.55 uIU/mL (0.34-3.74)
[2018-03-22] MEDS: BLOOD GLUCOSE MONITORING 1 DEV DEV FS SCH ×4 (06:24→21:11)
[2018-03-22] MEDS ORDERED: ALBUTEROL SULFATE/IPRATROPIU 3 ML SOL IH PRN (06:25)
[2018-03-22] MEDS ORDERED: DEXT 5% / NACL 0.9% 1,000 ML IV SCH (06:40)
[2018-03-22 07:36] LABS: BASOPHILS % (AUTO) 0.4 % (0.0-2.0); EOSINOPHILS # (AUTO) 0.2 K/uL (0-0.4); EOSINOPHILS % (AUTO) 2.4 % (0.0-4.0); HEMATOCRIT 26.2 % (36-52); HEMOGLOBIN 8.4 g/dL (12.0-18.0); LYMPHOCYTES # (AUTO) 0.6 K/uL (2.0-11.5); LYMPHOCYTES % (AUTO) 6.4 % (20.5-51.1); MEAN CORPUSCULAR HEMOGLOBIN 34 pg (27-31); MEAN CORPUSCULAR HGB CONC 32 g/dL (33-37); MEAN CORPUSCULAR VOLUME 104.2 fL (80-94); MONOCYTES # (AUTO) 0.9 K/uL (0.8-1.0); MONOCYTES % (AUTO) 9.7 % (1.7-9.3); NEUTROPHILS # (AUTO) 7.6 K/uL (1.8-7.7); NEUTROPHILS % (AUTO) 81.1 % (42.2-75.2); PLATELET COUNT (AUTO) 251 K/uL (140-450); RED BLOOD CELL COUNT(AUTO) 2.51 MIL/uL (4.20-6.10); RED CELL DISTRIBUTION WIDTH 17.5 % (11.6-13.7); WHITE BLOOD COUNT (AUTO) 9.4 K/uL (4.8-10.8)
[2018-03-22 07:48] LABS: MAGNESIUM 1.9 mg/dL (1.8-2.4); PHOSPHORUS 6.7 mg/dL (2.5-4.9)
[2018-03-22 07:51] LABS: ANION GAP 18.4 (8-16); CARBON DIOXIDE 27.8 mmol/L (21-32); POTASSIUM 5.2 mmol/L (3.5-5.1)
[2018-03-22 08:08] LABS: CREATININE 7.5 mg/dL (0.7-1.3)
[2018-03-22] MEDS: amLODIPine 5 MG TAB PO SCH (09:00)
[2018-03-22] MEDS: cloNIDine 0.1 MG TAB PO SCH ×3 (09:00→17:00)
[2018-03-22] MEDS ORDERED: CARVEDILOL 6.25 MG TAB PO SCH (09:00)
[2018-03-22] MEDS: SEVELAMER CARBONATE 800 MG TAB PO SCH ×3 (10:12→18:31)
[2018-03-22] MEDS: ATORVASTATIN 80 MG TAB PO SCH (10:13)
[2018-03-22] MEDS: ASCORBIC ACID 500 MG TAB PO SCH (10:13)
[2018-03-22] MEDS: FERROUS SULFATE 325 MG TABEC PO SCH (10:13)
[2018-03-22] MEDS: PANTOPRAZOLE 40 MG TABEC PO SCH (10:13)
[2018-03-22] MEDS: INSULIN LISPRO SLIDING SCALE 100 UNITS/ML VIAL SUBQ PRN ×2 (12:38→21:15)
[2018-03-22] MEDS: ALBUTEROL SULFATE/IPRATROPIU 3 ML SOL IH SCH ×2 (13:45→20:19)
[2018-03-22] MEDS: metroNIDAZOLE 500 MG/NS PREMIX 100 ML IV SCH ×2 (14:31→21:18)
[2018-03-22] MEDS: ACETAMINOPHEN 325 MG TAB PO PRN ×2 (16:02→18:31)
[2018-03-22] MEDS: HYDROcodone/APAP 5/325 MG 1 TAB TAB PO PRN ×2 (16:19→23:51)
[2018-03-22 16:22] LABS: ANION GAP 18.6 (8-16); CARBON DIOXIDE 25.9 mmol/L (21-32); POTASSIUM 5.5 mmol/L (3.5-5.1)
[2018-03-22] MEDS: hydrOXYzine HCL 10 MG TAB PO PRN ×2 (18:32→22:06)
[2018-03-22] MEDS: CARVEDILOL 12.5 MG TAB PO SCH (21:00)
[2018-03-22] MEDS ORDERED: SODIUM POLYSTYRENE 15 GM/60 ML UDBTL PO ONE (21:10)
[2018-03-22] MEDS: ZOLPIDEM 5 MG TAB PO PRN (21:28)
[2018-03-22] MEDS ORDERED: INFLUENZA VIRUS VACCINE QUAD 0.5 ML SYR IMVAC PRN (21:40)
[2018-03-22 22:13] LABS: ANION GAP 11.9 (8-16); CARBON DIOXIDE 31.3 mmol/L (21-32); POTASSIUM 3.2 mmol/L (3.5-5.1)
[2018-03-22 22:25] LABS: CREATININE 4.7 mg/dL (0.7-1.3)
[2018-03-23 04:00] VITALS: BP 94/55
[2018-03-23] MEDS: HYDROcodone/APAP 5/325 MG 1 TAB TAB PO PRN ×2 (04:11→14:03)
[2018-03-23] MEDS: metroNIDAZOLE 500 MG/NS PREMIX 100 ML IV SCH ×3 (04:11→20:20)
[2018-03-23] MEDS: BLOOD GLUCOSE MONITORING 1 DEV DEV FS SCH ×4 (06:00→20:19)
[2018-03-23 07:21] LABS: BASOPHILS # (AUTO) 0.1 K/uL (0.00-0.22); BASOPHILS % (AUTO) 0.6 % (0.0-2.0); EOSINOPHILS # (AUTO) 0.3 K/uL (0-0.4); EOSINOPHILS % (AUTO) 3.2 % (0.0-4.0); HEMOGLOBIN 8.2 g/dL (12.0-18.0); LYMPHOCYTES # (AUTO) 0.5 K/uL (2.0-11.5); LYMPHOCYTES % (AUTO) 6.3 % (20.5-51.1); MEAN CORPUSCULAR HEMOGLOBIN 34 pg (27-31); MEAN CORPUSCULAR HGB CONC 33 g/dL (33-37); MEAN CORPUSCULAR VOLUME 104.2 fL (80-94); MONOCYTES # (AUTO) 0.9 K/uL (0.8-1.0); MONOCYTES % (AUTO) 10.7 % (1.7-9.3); NEUTROPHILS # (AUTO) 6.7 K/uL (1.8-7.7); NEUTROPHILS % (AUTO) 79.2 % (42.2-75.2); PLATELET COUNT (AUTO) 232 K/uL (140-450); RED CELL DISTRIBUTION WIDTH 17.3 % (11.6-13.7); WHITE BLOOD COUNT (AUTO) 8.4 K/uL (4.8-10.8)
[2018-03-23 07:54] LABS: ANION GAP 15.8 (8-16); CARBON DIOXIDE 29.4 mmol/L (21-32); POTASSIUM 4.2 mmol/L (3.5-5.1)
[2018-03-23 08:00] VITALS: BP 83/60
[2018-03-23] MEDS: ASCORBIC ACID 500 MG TAB PO SCH (08:39)
[2018-03-23] MEDS: LACTOBACILLUS RHAMNOSUS GG 1 EACH CAP PO SCH (08:39)
[2018-03-23] MEDS: ATORVASTATIN 80 MG TAB PO SCH (08:39)
[2018-03-23] MEDS: FERROUS SULFATE 325 MG TABEC PO SCH (08:40)
[2018-03-23] MEDS: VIT-B COMP/VIT-C/FOLIC ACID 1 TAB PO SCH (08:40)
[2018-03-23] MEDS: ZINC SULF 220 MG CAP PO SCH (08:40)
[2018-03-23] MEDS: SEVELAMER CARBONATE 800 MG TAB PO SCH ×3 (08:40→16:28)
[2018-03-23] MEDS: PANTOPRAZOLE 40 MG TABEC PO SCH (08:40)
[2018-03-23] MEDS: cloNIDine 0.1 MG TAB PO SCH ×3 (08:42→16:22)
[2018-03-23 08:46] LABS: FERRITIN 1938 ng/mL (30-400)
[2018-03-23] MEDS: CARVEDILOL 12.5 MG TAB PO SCH ×2 (08:46→20:20)
[2018-03-23] MEDS: amLODIPine 5 MG TAB PO SCH (08:46)
[2018-03-23 08:53] LABS: CREATININE 5.7 mg/dL (0.7-1.3)
[2018-03-23] MEDS: ALBUTEROL SULFATE/IPRATROPIU 3 ML SOL IH SCH ×3 (09:03→19:17)
[2018-03-23 10:45] LABS: MAGNESIUM 1.9 mg/dL (1.8-2.4)
[2018-03-23 10:46] LABS: PHOSPHORUS 6.1 mg/dL (2.5-4.9)
[2018-03-23 12:00] VITALS: BP 117/71
[2018-03-23] MEDS: HYDRAGUARD CREAM TP SCH (12:17)
[2018-03-23] MEDS ORDERED: THERAHONEY WOUND DRESSING TP SCH (13:00)
[2018-03-23] MEDS ORDERED: HYDRAGUARD CREAM TP SCH (15:00)
[2018-03-23 16:00] VITALS: BP 88/55
[2018-03-23] MEDS: INSULIN LISPRO SLIDING SCALE 100 UNITS/ML VIAL SUBQ PRN ×2 (16:26→20:23)
[2018-03-23] MEDS: ZOLPIDEM 5 MG TAB PO PRN (21:41)
[2018-03-24] VITALS: BP 90/54
[2018-03-24] MEDS: HYDRAGUARD CREAM TP SCH ×3 (01:23→23:49)
[2018-03-24] MEDS ORDERED: ACETAMINOPHEN 325 MG TAB PO SCH (04:00)
[2018-03-24] MEDS: BLOOD GLUCOSE MONITORING 1 DEV DEV FS SCH ×4 (05:36→21:08)
[2018-03-24] MEDS: metroNIDAZOLE 500 MG/NS PREMIX 100 ML IV SCH ×3 (05:37→21:09)
[2018-03-24] MEDS: HYDROcodone/APAP 5/325 MG 1 TAB TAB PO PRN ×3 (05:38→21:13)
[2018-03-24 07:11] LABS: ANION GAP 14.8 (8-16); BASOPHILS # (AUTO) 0.1 K/uL (0.00-0.22); BASOPHILS % (AUTO) 0.8 % (0.0-2.0); EOSINOPHILS # (AUTO) 0.2 K/uL (0-0.4); EOSINOPHILS % (AUTO) 2.1 % (0.0-4.0); HEMOGLOBIN 7.7 g/dL (12.0-18.0); LYMPHOCYTES # (AUTO) 0.5 K/uL (2.0-11.5); LYMPHOCYTES % (AUTO) 5.8 % (20.5-51.1); MEAN CORPUSCULAR HEMOGLOBIN 35 pg (27-31); MEAN CORPUSCULAR HGB CONC 33 g/dL (33-37); MEAN CORPUSCULAR VOLUME 103.8 fL (80-94); MONOCYTES # (AUTO) 0.8 K/uL (0.8-1.0); MONOCYTES % (AUTO) 10.1 % (1.7-9.3); NEUTROPHILS # (AUTO) 6.3 K/uL (1.8-7.7); NEUTROPHILS % (AUTO) 81.2 % (42.2-75.2); PLATELET COUNT (AUTO) 224 K/uL (140-450); POTASSIUM 4.8 mmol/L (3.5-5.1); RED BLOOD CELL COUNT(AUTO) 2.22 MIL/uL (4.20-6.10); RED CELL DISTRIBUTION WIDTH 17.4 % (11.6-13.7); WHITE BLOOD COUNT (AUTO) 7.8 K/uL (4.8-10.8)
[2018-03-24 07:18] LABS: CREATININE 7.2 mg/dL (0.7-1.3)
[2018-03-24] MEDS: ALBUTEROL SULFATE/IPRATROPIU 3 ML SOL IH SCH ×3 (07:33→19:27)
[2018-03-24 08:00] VITALS: BP 87/52
[2018-03-24] MEDS: ZINC SULF 220 MG CAP PO SCH (08:57)
[2018-03-24] MEDS: FERROUS SULFATE 325 MG TABEC PO SCH (08:57)
[2018-03-24] MEDS: SEVELAMER CARBONATE 800 MG TAB PO SCH ×3 (08:57→17:56)
[2018-03-24] MEDS: ATORVASTATIN 80 MG TAB PO SCH (08:57)
[2018-03-24] MEDS: ASCORBIC ACID 500 MG TAB PO SCH (08:57)
[2018-03-24] MEDS: CARVEDILOL 12.5 MG TAB PO SCH ×2 (08:58→21:09)
[2018-03-24] MEDS: VIT-B COMP/VIT-C/FOLIC ACID 1 TAB PO SCH (08:58)
[2018-03-24] MEDS: PANTOPRAZOLE 40 MG TABEC PO SCH (08:58)
[2018-03-24] MEDS: cloNIDine 0.1 MG TAB PO SCH ×3 (08:58→17:00)
[2018-03-24] MEDS: amLODIPine 5 MG TAB PO SCH (08:58)
[2018-03-24] MEDS: LACTOBACILLUS RHAMNOSUS GG 1 EACH CAP PO SCH (08:58)
[2018-03-24] MEDS: THERAHONEY GEL 42.5 GM TP SCH (13:00)
[2018-03-24 16:00] VITALS: BP 108/69
[2018-03-24] MEDS: INSULIN LISPRO SLIDING SCALE 100 UNITS/ML VIAL SUBQ PRN (18:07)
[2018-03-24] MEDS: ZOLPIDEM 5 MG TAB PO PRN (21:13)
[2018-03-24] MEDS: hydrOXYzine HCL 10 MG TAB PO PRN (21:22)
[2018-03-24 22:24] LABS: ANION GAP 14.2 (8-16); POTASSIUM 4.2 mmol/L (3.5-5.1)
[2018-03-24 23:09] LABS: CREATININE 5.2 mg/dL (0.7-1.3)
[2018-03-25 04:00] VITALS: BP 99/69
[2018-03-25] MEDS: hydrOXYzine HCL 10 MG TAB PO PRN (04:59)
[2018-03-25] MEDS: metroNIDAZOLE 500 MG/NS PREMIX 100 ML IV SCH ×3 (05:02→20:03)
[2018-03-25] MEDS: BLOOD GLUCOSE MONITORING 1 DEV DEV FS SCH ×4 (06:31→20:03)
[2018-03-25] MEDS: ALBUTEROL SULFATE/IPRATROPIU 3 ML SOL IH SCH ×3 (07:35→19:16)
[2018-03-25 08:00] VITALS: BP 101/65
[2018-03-25] MEDS: ATORVASTATIN 80 MG TAB PO SCH (08:45)
[2018-03-25] MEDS: VIT-B COMP/VIT-C/FOLIC ACID 1 TAB PO SCH (08:45)
[2018-03-25] MEDS: FERROUS SULFATE 325 MG TABEC PO SCH (08:45)
[2018-03-25] MEDS: PANTOPRAZOLE 40 MG TABEC PO SCH (08:45)
[2018-03-25] MEDS: ZINC SULF 220 MG CAP PO SCH (08:45)
[2018-03-25] MEDS: LACTOBACILLUS RHAMNOSUS GG 1 EACH CAP PO SCH (08:45)
[2018-03-25] MEDS: ASCORBIC ACID 500 MG TAB PO SCH (08:45)
[2018-03-25] MEDS: SEVELAMER CARBONATE 800 MG TAB PO SCH ×3 (08:46→17:19)
[2018-03-25] MEDS: CARVEDILOL 12.5 MG TAB PO SCH ×2 (08:48→20:55)
[2018-03-25] MEDS: cloNIDine 0.1 MG TAB PO SCH ×3 (08:48→16:34)
[2018-03-25] MEDS: amLODIPine 5 MG TAB PO SCH (08:48)
[2018-03-25] MEDS: LACTULOSE 20 GM/30 ML UDC PO SCH ×3 (12:43→20:03)
[2018-03-25] MEDS: SENNA 8.6 MG TAB PO SCH ×2 (12:43→17:19)
[2018-03-25] MEDS ORDERED: BOWEL EVACUANT DRINK 4,000 ML PDS PO SCH (14:00)
[2018-03-25] MEDS: THERAHONEY GEL 42.5 GM TP SCH (15:10)
[2018-03-25] MEDS: HYDRAGUARD CREAM TP SCH (15:11)
[2018-03-25 16:00] VITALS: BP 99/70
[2018-03-25] MEDS ORDERED: MAGNESIUM CITRATE 300 ML BTL PO SCH (20:00)
[2018-03-25] MEDS: ZOLPIDEM 5 MG TAB PO PRN (22:23)
[2018-03-26] MEDS: HYDRAGUARD CREAM TP SCH ×2 (01:21→13:39)
[2018-03-26 04:00] VITALS: BP 102/72
[2018-03-26] MEDS: metroNIDAZOLE 500 MG/NS PREMIX 100 ML IV SCH ×3 (05:01→20:28)
[2018-03-26 07:04] LABS: BASOPHILS % (AUTO) 0.6 % (0.0-2.0); EOSINOPHILS # (AUTO) 0.4 K/uL (0-0.4); EOSINOPHILS % (AUTO) 4.9 % (0.0-4.0); HEMATOCRIT 25.2 % (36-52); HEMOGLOBIN 8.1 g/dL (12.0-18.0); LYMPHOCYTES # (AUTO) 0.6 K/uL (2.0-11.5); LYMPHOCYTES % (AUTO) 8.1 % (20.5-51.1); MEAN CORPUSCULAR HEMOGLOBIN 34 pg (27-31); MEAN CORPUSCULAR HGB CONC 32 g/dL (33-37); MEAN CORPUSCULAR VOLUME 104.5 fL (80-94); MONOCYTES # (AUTO) 0.9 K/uL (0.8-1.0); MONOCYTES % (AUTO) 11.8 % (1.7-9.3); NEUTROPHILS # (AUTO) 5.4 K/uL (1.8-7.7); NEUTROPHILS % (AUTO) 74.6 % (42.2-75.2); PLATELET COUNT (AUTO) 231 K/uL (140-450); RED BLOOD CELL COUNT(AUTO) 2.41 MIL/uL (4.20-6.10); RED CELL DISTRIBUTION WIDTH 17.6 % (11.6-13.7); WHITE BLOOD COUNT (AUTO) 7.2 K/uL (4.8-10.8)
[2018-03-26] MEDS: BLOOD GLUCOSE MONITORING 1 DEV DEV FS SCH ×4 (07:30→20:39)
[2018-03-26] MEDS: ALBUTEROL SULFATE/IPRATROPIU 3 ML SOL IH SCH ×3 (07:32→19:00)
[2018-03-26 08:00] VITALS: BP 114/73
[2018-03-26 08:02] LABS: POTASSIUM 4.3 mmol/L (3.5-5.1)
[2018-03-26 08:03] LABS: ANION GAP 14.2 (8-16); CARBON DIOXIDE 30.1 mmol/L (21-32); CREATININE 7.3 mg/dL (0.7-1.3)
[2018-03-26] MEDS: CARVEDILOL 12.5 MG TAB PO SCH ×2 (09:00→21:00)
[2018-03-26] MEDS: LACTULOSE 20 GM/30 ML UDC PO SCH ×4 (09:00→20:29)
[2018-03-26] MEDS: cloNIDine 0.1 MG TAB PO SCH ×3 (09:00→16:44)
[2018-03-26] MEDS: amLODIPine 5 MG TAB PO SCH (09:00)
[2018-03-26 09:12] LABS: TRANSFERRIN 152 mg/dL (200-370)
[2018-03-26] MEDS: SENNA 8.6 MG TAB PO SCH ×3 (09:50→16:44)
[2018-03-26] MEDS: ATORVASTATIN 80 MG TAB PO SCH (09:50)
[2018-03-26] MEDS: PANTOPRAZOLE 40 MG TABEC PO SCH (09:50)
[2018-03-26] MEDS: VIT-B COMP/VIT-C/FOLIC ACID 1 TAB PO SCH (09:50)
[2018-03-26] MEDS: ZINC SULF 220 MG CAP PO SCH (09:50)
[2018-03-26] MEDS: SEVELAMER CARBONATE 800 MG TAB PO SCH ×3 (09:51→16:43)
[2018-03-26] MEDS: LACTOBACILLUS RHAMNOSUS GG 1 EACH CAP PO SCH (09:51)
[2018-03-26] MEDS: FERROUS SULFATE 325 MG TABEC PO SCH (09:51)
[2018-03-26] MEDS: ASCORBIC ACID 500 MG TAB PO SCH (09:52)
[2018-03-26] MEDS: INSULIN LISPRO SLIDING SCALE 100 UNITS/ML VIAL SUBQ PRN ×2 (12:07→16:48)
[2018-03-26] MEDS: THERAHONEY GEL 42.5 GM TP SCH (13:39)
[2018-03-26] MEDS: HYDROcodone/APAP 5/325 MG 1 TAB TAB PO PRN (13:58)
[2018-03-26] MEDS: hydrOXYzine HCL 10 MG TAB PO PRN (15:27)
[2018-03-26] MEDS ORDERED: BOWEL EVACUANT DRINK 4,000 ML PDS PO SCH (15:30)
[2018-03-26 16:00] VITALS: BP 102/69
[2018-03-26 20:00] VITALS: BP 132/77
[2018-03-26] MEDS ORDERED: MAGNESIUM CITRATE 300 ML BTL PO SCH (20:00)
[2018-03-26 23:56] VITALS: BP 107/66
[2018-03-27] MEDS: HYDRAGUARD CREAM TP SCH ×2 (00:05→13:00)
[2018-03-27] MEDS: ZOLPIDEM 5 MG TAB PO PRN (01:56)
[2018-03-27] MEDS: HYDROcodone/APAP 5/325 MG 1 TAB TAB PO PRN (02:24)
[2018-03-27] MEDS: metroNIDAZOLE 500 MG/NS PREMIX 100 ML IV SCH ×2 (04:58→13:00)
[2018-03-27] MEDS: BLOOD GLUCOSE MONITORING 1 DEV DEV FS SCH ×3 (06:11→16:30)
[2018-03-27] MEDS: ALBUTEROL SULFATE/IPRATROPIU 3 ML SOL IH SCH ×3 (06:31→19:00)
[2018-03-27 06:49] LABS: BASOPHILS # (AUTO) 0.1 K/uL (0.00-0.22); BASOPHILS % (AUTO) 0.7 % (0.0-2.0); EOSINOPHILS # (AUTO) 0.3 K/uL (0-0.4); EOSINOPHILS % (AUTO) 4.3 % (0.0-4.0); HEMATOCRIT 23.4 % (36-52); HEMOGLOBIN 7.5 g/dL (12.0-18.0); LYMPHOCYTES # (AUTO) 0.4 K/uL (2.0-11.5); LYMPHOCYTES % (AUTO) 5.7 % (20.5-51.1); MEAN CORPUSCULAR HEMOGLOBIN 33 pg (27-31); MEAN CORPUSCULAR HGB CONC 32 g/dL (33-37); MEAN CORPUSCULAR VOLUME 104.2 fL (80-94); MONOCYTES # (AUTO) 0.9 K/uL (0.8-1.0); MONOCYTES % (AUTO) 12.1 % (1.7-9.3); NEUTROPHILS # (AUTO) 5.7 K/uL (1.8-7.7); NEUTROPHILS % (AUTO) 77.2 % (42.2-75.2); PLATELET COUNT (AUTO) 227 K/uL (140-450); RED BLOOD CELL COUNT(AUTO) 2.25 MIL/uL (4.20-6.10); RED CELL DISTRIBUTION WIDTH 17.5 % (11.6-13.7); WHITE BLOOD COUNT (AUTO) 7.4 K/uL (4.8-10.8)
[2018-03-27 08:00] VITALS: BP 121/73
[2018-03-27] MEDS: SEVELAMER CARBONATE 800 MG TAB PO SCH ×3 (08:00→17:00)
[2018-03-27] MEDS: FERROUS SULFATE 325 MG TABEC PO SCH (08:00)
[2018-03-27] MEDS: LACTOBACILLUS RHAMNOSUS GG 1 EACH CAP PO SCH (09:00)
[2018-03-27] MEDS: ASCORBIC ACID 500 MG TAB PO SCH (09:00)
[2018-03-27] MEDS: LACTULOSE 20 GM/30 ML UDC PO SCH ×3 (09:00→17:00)
[2018-03-27] MEDS: VIT-B COMP/VIT-C/FOLIC ACID 1 TAB PO SCH (09:00)
[2018-03-27] MEDS: ZINC SULF 220 MG CAP PO SCH (09:00)
[2018-03-27] MEDS: amLODIPine 5 MG TAB PO SCH (09:00)
[2018-03-27] MEDS: CARVEDILOL 12.5 MG TAB PO SCH (09:00)
[2018-03-27] MEDS: ATORVASTATIN 80 MG TAB PO SCH (09:00)
[2018-03-27] MEDS: PANTOPRAZOLE 40 MG TABEC PO SCH (09:00)
[2018-03-27] MEDS: cloNIDine 0.1 MG TAB PO SCH ×3 (09:00→17:00)
[2018-03-27 10:05] LABS: CARBON DIOXIDE 31.7 mmol/L (21-32); POTASSIUM 3.7 mmol/L (3.5-5.1)
[2018-03-27 10:23] LABS: CREATININE 5.8 mg/dL (0.7-1.3)
[2018-03-27] MEDS ORDERED: MIDAZOLAM 2 MG/2 ML VIAL ONE (10:54)
[2018-03-27] MEDS ORDERED: fentaNYL 0.05 MG/ML VIAL ONE (10:54)
[2018-03-27] MEDS: THERAHONEY GEL 42.5 GM TP SCH (13:00)
[2018-03-27 16:00] VITALS: BP 117/65
[2018-03-27] MEDS ORDERED: LACT10CA PO (17:19)
[2018-03-27] MEDS ORDERED: METR250T2 PO (17:20)
[2018-03-27 18:02] VITALS: BP 117/65
[2018-03-27] MEDS ORDERED: SENNA 8.6 MG TAB PO SCH (21:00)
[2018-03-28] MEDS ORDERED: EPOETIN ALFA 10,000 UNITS/ML VIAL IV SCH (09:00)
[2018-03-28] MEDS ORDERED: INSU100S5 SUBQ (15:28)
== END 2018-03-27 19:51 | disposition home or self-care (01) | DRG 469 ==
LOC: MED 02:40 → MTU 04:53
PROVIDERS: ADMIT General Practice; ATTEND General Practice
PROC: 5A1D70Z Performance of Urinary Filtration, Intermittent, Less than 6 Hours Per Day (ICD-10-PCS; principal; 2018-03-22)
PROC: 5A1D70Z Performance of Urinary Filtration, Intermittent, Less than 6 Hours Per Day (ICD-10-PCS; 2018-03-24)
PROC: 5A1D70Z Performance of Urinary Filtration, Intermittent, Less than 6 Hours Per Day (ICD-10-PCS; 2018-03-26)
PROC: 5A1D70Z Performance of Urinary Filtration, Intermittent, Less than 6 Hours Per Day (ICD-10-PCS; 2018-03-27)
DX: N17.0 Acute kidney failure with tubular necrosis (principal); E43 Unspecified severe protein-calorie malnutrition; J90 Pleural effusion, not elsewhere classified; D68.59 Other primary thrombophilia; E11.22 Type 2 diabetes mellitus with diabetic chronic kidney disease; E11.42 Type 2 diabetes mellitus with diabetic polyneuropathy; E11.51 Type 2 diabetes mellitus with diabetic peripheral angiopathy without gangrene; E11.65 Type 2 diabetes mellitus with hyperglycemia; I12.0 Hypertensive chronic kidney disease with stage 5 chronic kidney disease or end stage renal disease; A09 Infectious gastroenteritis and colitis, unspecified; E87.5 Hyperkalemia; N18.6 End stage renal disease; K21.9 Gastro-esophageal reflux disease without esophagitis; D53.9 Nutritional anemia, unspecified; E78.5 Hyperlipidemia, unspecified; D63.8 Anemia in other chronic diseases classified elsewhere; J98.11 Atelectasis; E87.70 Fluid overload, unspecified; I31.3 Pericardial effusion (noninflammatory); R18.8 Other ascites; L98.429 Non-pressure chronic ulcer of back with unspecified severity; K43.9 Ventral hernia without obstruction or gangrene; Z99.2 Dependence on renal dialysis; Z68.29 Body mass index [BMI] 29.0-29.9, adult; Z79.4 Long term (current) use of insulin; Z79.899 Other long term (current) drug therapy; Z89.432 Acquired absence of left foot; Z89.431 Acquired absence of right foot; Z90.49 Acquired absence of other specified parts of digestive tract
CPT/HCPCS: 36415; 71045; 80048; 80053; 82272; 82607; 82728; 82746; 82948; 83036; 83540; 83605; 83690; 83735; 84100; 84134; 84443; 84484; 85025; 85045; 85610; 85730; 87040; 87045; 87081; 87804; 89055; 90935; 93005; 93970; 94640; 96361; 96374; 96375; 97110; 97116; 97530; 99285; J0696; J1885; J2250; J2270; J2405; J3010; J3490; J7030; J7060; J7620; Q0092

== ENCOUNTER 2018-05-12 17:08 | Emergency (ER) | payer MEDICAID ==
[~2018-05-12] VITALS: Ht 182.9 cm; Wt 81.6 kg
[~2018-05-12 17:08] MED LIST changes: -ATA10 PO; +LACT10CA PO; -METO10TA98 PO; +METR250T2 PO; -TRAZ-370 PO
[2018-05-12 17:36] VITALS: BP 119/68
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
--- NOTE | 2018-05-12 18:07 | NUR ---
xray at bedside.
--- NOTE | 2018-05-12 18:10 | NUR ---
Patient being evaluated by physician at bedside.
--- NOTE | 2018-05-12 18:13 | NUR ---
MARYANNE WILD at bedside.
[2018-05-12] MEDS ORDERED: KETOROLAC 60 MG/2 ML VIAL IM ONE (18:20)
--- NOTE | 2018-05-12 18:46 | NUR ---
Patient discharged with v/s stable. Written and verbal after care instructions given and explained. Patient alert, oriented and verbalized understanding of instructions. Ambulatory with to car. All questions addressed prior to discharge. ID band removed. Patient advised to follow up with PMD. Rx of NAPROSYN AND TRAMADOL given. Patient educated on indication of medication including possible reaction and side effects. Opportunity to ask questions provided and answered.
[2018-05-12 18:47] VITALS: BP 128/63
== END 2018-05-12 18:46 | disposition home or self-care (01) ==
LOC: MED 17:08
DX: S82.832A Other fracture of upper and lower end of left fibula, initial encounter for closed fracture (principal); S52.392A Other fracture of shaft of radius, left arm, initial encounter for closed fracture; E11.9 Type 2 diabetes mellitus without complications; K21.9 Gastro-esophageal reflux disease without esophagitis; I10 Essential (primary) hypertension; Z99.2 Dependence on renal dialysis; N28.9 Disorder of kidney and ureter, unspecified; Z79.4 Long term (current) use of insulin; Z79.899 Other long term (current) drug therapy; Z98.890 Other specified postprocedural states; Z89.432 Acquired absence of left foot; Z89.431 Acquired absence of right foot; X58.XXXA Exposure to other specified factors, initial encounter; Y93.89 Activity, other specified; Y92.89 Other specified places as the place of occurrence of the external cause; Y99.8 Other external cause status
CPT/HCPCS: 29105; 73090; 96372; 99283; J1885; Q0092